=== PATIENT | female | born 1990 | race American Indian/Alaskan Native ===

== ENCOUNTER 2020-01-28 19:29 | Emergency (ER) | payer SELFPAY ==
[2020-01-28 20:44] VITALS: BP 135/90
[2020-01-28] MEDS ORDERED: ASPIRIN 325 MG TAB PO ONE (20:46)
[2020-01-28 21:09] LABS: Basophils % (Auto) 0.6 % (0.0-1.8); Eosinophils # (Auto) 0.1 K/mm3 (0.0-0.4); Eosinophils % (Auto) 1.9 % (0.0-4.3); Hematocrit 43.6 % (30.3-42.9); Hemoglobin 14.4 gm/dl (10.1-14.3); Lymphocytes # (Auto) 2.2 K/mm3 (1.2-5.4); Lymphocytes % (Auto) 33.8 % (13.4-35.0); Mean Corpuscular HGB Conc 33 % (30-34); Mean Corpuscular Volume 82 fl (79-97); Monocytes # (Auto) 0.4 K/mm3 (0.0-0.8); Monocytes % (Auto) 6.4 % (0.0-7.3); Platelet Count 297 K/mm3 (140-440); Red Blood Count 5.32 M/mm3 (3.65-5.03); Red Cell Distribution Width 15.5 % (13.2-15.2)
[2020-01-28 21:30] LABS: BUN/Creatinine Ratio 20; Blood Urea Nitrogen 16 mg/dL (7-17); Calcium 10.2 mg/dL (8.4-10.2); Hemolysis Index 11
[2020-01-28 21:46] LABS: Bilirubin,Urine NEG (Negative); Blood,Urine NEG (Negative); Color,Urine Yellow (Yellow); Protein,Urine <15 mg/dL mg/dL (Negative); Urobilinogen,Urine < 2.0 mg/dL (<2.0)
--- NOTE | 2020-01-28 21:48 | Emergency Department Report ---
ED Chest Pain HPI - General Chief Complaint: Chest Pain Stated Complaint: CHEST PAIN/STOMACH PAIN/NAUSEA Time Seen by Provider: 01/28/20 21:25 Source: patient Mode of arrival: Ambulatory Limitations: No Limitations - History of Present Illness Initial Comments: This is a 29-year-old female who presents to the emergency department with 2 complaints. First, patient says that she has been having some midsternal to right-sided chest pain intermittently over the past 2 to 3 days. No known aggravating or alleviating factors. She denies any shortness of breath, back pain, nausea, vomiting or diaphoresis. Secondly, the patient complains of some lower abdominal and/or pelvic pain that occurs after intercourse and last for a few hours. When it occurs it is very intense. However the patient denies any current chest, abdominal or pelvic pains at this time. She has not taken anything for symptoms prior to presentation. She is a tobacco smoker. She does not have a primary care physician or DIRECTOR GIFT. No recent travel or sick contacts at home. She has a past medical history of pseudotumor cerebri. - Related Data Previous Rx's Medication Instructions Recorded Last Taken Type metroNIDAZOLE [Flagyl] 500 mg PO Q12HR #14 tab 01/28/20 Unknown Rx Allergies Allergy/AdvReac Type Severity Reaction Status Date / Time No Known Allergies Allergy Unverified 01/28/20 20:45 Heart Score - HEART Score History: Slightly suspicious EKG: Normal Age: < 45 Risk factors: 1-2 risk factors Troponin: < normal limit HEART Score: 1 - Critical Actions Critical Actions: 0-3 pts:0.9-1.7%risk of adverse cardiac event.Candidate for discharge ED Review of Systems ROS: Stated complaint: CHEST PAIN/STOMACH PAIN/NAUSEA Other details as noted in HPI Comment: All other systems reviewed and negative Constitutional: denies: chills, fever Eyes: denies: eye pain, vision change ENT: denies: ear pain, throat pain Respiratory: denies: cough, shortness of breath Cardiovascular: chest pain. denies: palpitations Gastrointestinal: abdominal pain. denies: vomiting Genitourinary: discharge. denies: dysuria Musculoskeletal: denies: back pain, arthralgia Skin: denies: rash, lesions Neurological: denies: headache, weakness ED Past Medical Hx - Past Medical History Previous Medical History?: Yes Additional medical history: Psedotumor Cerebii - Surgical History Past Surgical History?: Yes Hx Appendectomy: Yes Additional Surgical History: Hernia Repair - Social History Smoking Status: Current Every Day Smoker Substance Use Type: None - Medications Home Medications: Home Medications Medication Instructions Recorded Confirmed Last Taken Type metroNIDAZOLE [Flagyl] 500 mg PO Q12HR #14 tab 01/28/20 Unknown Rx ED Physical Exam - General Limitations: No Limitations - Other Other exam information: GENERAL: The patient is well-developed well-nourished. HENT: Normocephalic. Atraumatic. Patient has moist mucous membranes. EYES: Extraocular motions are intact. NECK: Supple. Trachea is midline. CHEST/LUNGS: Clear to auscultation. There is no respiratory distress noted. HEART/CARDIOVASCULAR: Regular. There is no tachycardia. There is no murmur. ABDOMEN: Abdomen is soft, nontender. Patient has normal bowel sounds. There is no abdominal distention. SKIN: Skin is warm and dry. NEURO: The patient is awake, alert, and oriented. The patient is cooperative. The patient has no focal neurologic deficits. Normal speech. MUSCULOSKELETAL: There is no tenderness or deformity. PELVIC: No vaginal or labial lesions seen. There is some thin white discharge in the vaginal vault. There is also some thick white yeast appearing discharge. ED Course Vital Signs 01/28/20 01/28/20 20:41 23:15 Temperature 98.5 F Pulse Rate 87 Respiratory 20 16 Rate Blood Pressure 135/90 O2 Sat by Pulse 97 98 Oximetry - Reevaluation(s) Reevaluation #1: 01/28/20 22:22 Pelvic exam done with charge nurse Chelsie at bedside to assist and health and safety director. DAVID score - David Score Age > 65: (0) No Aspirin use within the Past 7 Days: (0) No 3 or more CAD Risk Factors: (0) No 2 or more Angina events in past 24 hrs: (1) Yes Known CAD with more than 50% Stenosis: (0) No Elevated Cardiac Markers: (0) No ST Deviation Greater than 0.5mm: (0) No DAVID Score: 1 ED Medical Decision Making - Lab Data Result diagrams: 01/28/20 20:52 01/28/20 20:52 - EKG Data -: EKG Interpreted by Ia EKG shows normal: sinus rhythm, axis, intervals, QRS complexes, ST-T waves Rate: normal - EKG Data When compared to previous EKG there are: previous EKG unavailable Interpretation: normal EKG - Radiology Data Radiology results: image reviewed interpreted by me: Chest x-ray does not show any acute process. There are no pleural effusions, obvious pneumonia and there is no pneumothorax. No significant cardiomegaly. - Medical Decision Making Regarding the patient's chest pain: An EKG was done that is normal without ST elevation MT, ischemia or dysrhythmia. Chest x-ray does not show any pneumonia, pleural effusions, pneumothorax, or any other acute process. Labs have been unremarkable including CBC, metabolic panel and a negative troponin. Patient does not have any current chest pain. She is low on the heart and DAVID scores. She is low on the Wells score criteria and negative for the pulmonary embolism rule out criteria. The patient's contact information has been sent over to [facility], and someone from their office should be contacting her shortly for close outpatient follow-up as per our hospitals low risk chest pain protocol. Regarding the patient's abdominal and pelvic pain: The patient is also currently asymptomatic from the abdominal and pelvic pains. She mostly says that the pelvic pain occurs during sexual intercourse. Urinalysis does not show any urinary tract infection and the patient is not . Pelvic examination was done and the resulting wet prep was positive for bacterial vaginosis. She also appeared to have some yeastlike discharge and was given a dose of Diflucan here. The patient will go home on Flagyl. She has been given outpatient referrals for primary care and DIRECTOR GIFT. She will return to the emergency department with any worsening of her symptoms or with any acute distress. Critical Care Time: No Critical care attestation.: If time is entered above; I have spent that time in minutes in the direct care of this critically ill patient, excluding procedure time. ED Disposition Clinical Impression: Bacterial vaginosis, Intermittent chest pain, Dyspareunia Disposition: TO HOME OR SELFCARE Is pt being admited?: No Condition: Stable Instructions: Chest Pain (ED), Bacterial Vaginosis (ED) Additional Instructions: Please follow-up with a primary care physician and DIRECTOR GIFT in the next few days. I am giving you multiple referrals for both primary care and DIRECTOR GIFT. Take the medications as prescribed. The medication prescribed for bacterial vaginosis, Flagyl/metronidazole, has a very strong and bad reaction if mixed with alcohol of any quantity. Do not drink any alcohol for up to 2 days after finishing this medication. I have sent your contact information to the [facility], and someone from their office should be contacting you shortly for close outpatient follow-up. Return to the emergency department with any worsening of your symptoms, new or concerning symptoms not addressed during this current emergency department visit, or with any acute distress. Prescriptions: metroNIDAZOLE [Flagyl] 500 mg PO Q12HR #14 tab Referrals: PRIMARY CAREMD [Primary Care Provider] - 3-5 Days FLAKITO REYNA MD [Staff Physician] - 3-5 Days VANIA COVARRUBIAS MD [Staff Physician] - 3-5 Days [facility] [Provider Group] - 3-5 Days [facility] [Provider Group] - 3-5 Days [facility] [Provider Group] - 3-5 Days Forms: STI Treatment and Prevention, Work/School Release Form(ED) Time of Disposition: 22:52
--- NOTE | 2020-01-28 21:56 | XRay Report ---
CHEST 2 VIEWS INDICATION: Chest Pain. COMPARISON: None FINDINGS: Support devices: None. Heart: Within normal limits. Lungs: No acute air space or interstitial disease. Pleura: No significant pleural effusion. No pneumothorax. Additional findings: None. IMPRESSION: 1. No acute findings. Signer Name: Jef Garcia MD Signed: 01/28/2020 9:51 PM Workstation Name: [id number]
[2020-01-28] MEDS ORDERED: FLUCONAZOLE 200 MG TAB PO ONE (22:20)
[2020-01-28 22:34] LABS: Alanine Aminotransferase 10 units/L (7-56)
[2020-01-28 22:36] LABS: Bilirubin,Direct < 0.2 mg/dL (0-0.2)
== END 2020-01-28 23:30 | disposition home or self-care (01) ==
LOC: ED 19:29
DX: N76.0 Acute vaginitis (principal); B96.89 Other specified bacterial agents as the cause of diseases classified elsewhere; R07.89 Other chest pain; N94.10 Unspecified dyspareunia; F17.200 Nicotine dependence, unspecified, uncomplicated; Z79.899 Other long term (current) drug therapy; Z90.49 Acquired absence of other specified parts of digestive tract; Z98.890 Other specified postprocedural states
CPT/HCPCS: 36415; 71046; 80048; 80076; 81001; 84484; 84703; 85025; 87210; 87591; 93005

== ENCOUNTER 2020-03-19 22:15 | Emergency (ER) | payer SELFPAY | END 2020-03-20 01:00 | disposition left against medical advice (07) | LOC: ED 22:15 | DX: R10.9 Unspecified abdominal pain (principal); M54.9 Dorsalgia, unspecified; Z53.21 Procedure and treatment not carried out due to patient leaving prior to being seen by health care provider ==

== ENCOUNTER 2020-07-29 21:07 | Outpatient (CLI) | payer MEDICAID ==
[2020-07-29 21:49] VITALS: BP 111/61
[2020-07-29] MEDS ORDERED: LACTATED RINGERS 500 ML IV ONE (23:11)
--- NOTE | 2020-07-29 23:27 | Ultrasound Report ---
Limited OB Ultrasound HISTORY: CERVICAL LENGTH AND REFUGIO, PLACETA. TECHNIQUE: Grayscale and color imaging performed. COMPARISON: None FINDINGS: Single viable intrauterine gestation with cephalic presentation. Heart rate is 159 bpm. Ricardo centa is posterior with no abruption identified. REFUGIO is 9.4 cm. Cervix measures 3.4 cm. IMPRESSION: Single viable intrauterine gestation as above. Signer Name: Lee Brooks MD Signed: 07/29/2020 11:23 PM Workstation Name: [id number]
== END 2020-07-29 23:23 | disposition home or self-care (01) ==
LOC: TRG 21:07 → APU 21:09 → TRG 23:23
PROVIDERS: ATTEND Obstetrics & Gynecology
DX: Z34.92 Encounter for supervision of normal pregnancy, unspecified, second trimester (principal); Z3A.24 24 weeks gestation of pregnancy
CPT/HCPCS: 59025; 76815

== ENCOUNTER 2020-08-07 09:27 | Inpatient (IN) | payer MEDICAID ==
[2020-08-07] MEDS ORDERED: LACTATED RINGERS 1,000 ML IV ONE (11:10)
[2020-08-07] MEDS ORDERED: DIPHENOXYLATE/ATROPINE TAB PO ONE (11:12)
--- NOTE | 2020-08-07 12:34 | History and Physical Report ---
History of Present Illness Date of examination: 08/07/20 Chief complaint: abdominal pain History of present illness: EDC Confirmation: 11/12/2020 Past History : 3 Term Births: 0 Premature Births: 2 Living Children: 1 Para: 2 Mult. Births: 0 Prev : 0 Prev. attempt? 0 Aborta: 0 Elect. Ab: 0 Spont. 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 of genital herpes: no Partner hx. of genital herpes: no Rash, Viral, or Febrile illness since last LMP? no Varicella/Chicken Pox Status: Previous Disease Genetic History Congenital Heart Defect: Mom: no Dad: no Oziel Disease: Mom: no Dad: no Thalassemia Mom: no Dad: no Neural Tube Defect Mom: no Dad: no Down's Syndrome Mom: no Dad: no David-Sachs Mom: no Dad: no Sickle Cell Disease/Trait Mom: yes Dad: no Hemophilia Mom: no Dad: no Muscular Dystrophy Mom: no Dad: no Cystic Fibrosis Mom: no Dad: no [place] Chorea Mom: no Dad: no Mental Retardation Mom: no Dad: no Fragile X Mom: no Dad: no Other Genetic/Chromosomal Disorder Mom: no Dad: no Child w/other defect Mom: no Dad: no Enviromental Exposures Xray Exposure: no Medication, drug, or alcohol use since LMP: no Chemical/Other Exposure: no Exposure to Cat Liter: no Hx of Parvovirus (Fifth Disease): no Occupational Exposure to Children: none Current Allergies: No known allergies Past History Past Medical History: other (see HPI) Past Surgical History: other (see HPI) 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) Family/Genetic History: other (see HPI) Social history: no significant social history - Obstetrical History Expected Date of Delivery: 11/12/20 Actual Gestation: 26 Week(s) 1 Day(s) : 3 Para: 2 Hx # Term Pregnancies: 0 Number of Pregnancies: 2 Spontaneous Abortions: 0 Induced : 0 Number of Living Children: 1 Medications and Allergies Allergies Allergy/AdvReac Type Severity Reaction Status Date / Time No Known Allergies Allergy Verified 08/07/20 11:08 Home Medications Medication Instructions Recorded Confirmed Last Taken Type metroNIDAZOLE [Flagyl] 500 mg PO Q12HR #14 tab 01/28/20 Unknown Rx Active Meds: Active Medications Acetaminophen (Acetaminophen 325 Mg Tab) 650 mg PO Q4H PRN PRN Reason: Pain MILD(1-3)/Fever >100.5/SANCHEZ Dexamethasone (Dexamethasone 4 Mg/Ml Vial) 6 mg IM Q12HR GALEN Stop: 08/08/20 22:01 Docusate Sodium (Docusate Sodium 100 Mg Cap) 100 mg PO Q12H PRN PRN Reason: Constipation Guaifenesin (Guaifenesin Dm 200/20 Mg Oral Liqd 10 Ml) 10 ml PO Q6H PRN PRN Reason: Cough Lactated Ringer's (Lactated Ringers) 1,000 mls @ 125 mls/hr IV DIRECT GALEN Magnesium Sulfate (Magnesium Sulfate 40gm/1000ml) 40 gm in 1,000 mls @ 50 mls/hr IV DIRECT GALEN Magnesium Sulfate (Magnesium Sulfate 4gm/100ml) 4 gm in 100 mls @ 300 mls/hr IV ONCE ONE Stop: 08/07/20 12:45 Multivitamins/Iron/Calcium ( Szd22-Uf Fumarate-Folic Acid Vit Tab) 1 each PO QDAY GALEN Sodium Chloride (Sodium Chloride Nasal [place] 44ml) 2 spray NS Q4H PRN PRN Reason: Congestion Review of Systems All systems: negative - Vital Signs Vital signs: Vital Signs Temp Resp 98 F 18 08/07/20 11:29 08/07/20 11:29 Temp Pulse Resp BP Pulse Ox 98 F 92 H 18 115/71 08/07/20 11:29 08/07/20 12:21 08/07/20 11:29 08/07/20 12:21 - Physical Exam Breasts: Positive: normal Cardiovascular: Regular rate Lungs: Positive: Normal air movement Abdomen: Positive: normal appearance, soft Genitourinary (Female): Positive: normal external genitalia, normal perenium Vagina: Positive: normal moisture - Obstetrical FHR: auscultation normal Uterine Contraction Monitor Mode: External Uterine Contraction Pattern: Regular Uterine Tone Measurement Phase: Contraction Uterine Contraction Intensity: Mild Results All other labs normal. Assessment and Plan Pt examined by RN - unable to determine cervix or membranes. u/s martinez shows cephalic presentation with CL 0.7cm and funneling 3.0cms at internal os. Admission orders in EMR. Pt reports weekly 17OHP injections by home health nurse. She has not been compliant with visits in our office only having 3 visits. She had an elevated 1hGTT 08/01/2020 of 164. 3hGTt has not yet been done. Dr. Hood aware of admission. - Patient Problems (1) 26 weeks gestation of Current Visit: Yes Status: Acute (2) labor in second trimester Current Visit: Yes Status: Acute Qualifiers: Fetus number: single or unspecified fetus Plan to address problem: Mag sulfate 2gm/hr after 4gm load steroids for lung maturity Mag level q6hrs NICU consult AMFM consult (3) Abnormal glucose tolerance test (GTT) during , antepartum Onset Date: ~08/01/20 Current Visit: Yes Status: Acute Plan to address problem: elevated 1hGTT, will schedule 3hGTT at later date d/t steroids
[2020-08-07] MEDS ORDERED: SODIUM CHLORIDE NASAL SPRAY 44ML NS PRN (13:00)
[2020-08-07] MEDS ORDERED: guaiFENesin DM 200/20 MG ORAL LIQD 10 ML PO PRN (13:00)
[2020-08-07] MEDS ORDERED: ACETAMINOPHEN 325 MG TAB PO PRN (13:00)
[2020-08-07] MEDS ORDERED: MAGNESIUM SULFATE 4 GM/100 ML BAG IV ONE (13:00)
[2020-08-07] MEDS: LACTATED RINGERS 1,000 ML IV SCH (13:37)
[2020-08-07] MEDS: PRENATAL VIT27-FE FUMARATE-FOLIC ACID VIT TAB PO SCH (13:50)
--- NOTE | 2020-08-07 13:53 | Ultrasound Report ---
ULTRASOUND OBSTETRIC LIMITED ULTRASOUND OB TRANSVAGINAL INDICATION / CLINICAL INFORMATION: labor. TECHNIQUE: Transabdominal ultrasound imaging. COMPARISON: 07/29/2020 FINDINGS: HEART RATE (beats per minute): 133 AMNIOTIC FLUID INDEX (cm) = not measured PRESENTATION: Cephalic. ADDITIONAL FINDINGS: Cervical funneling is noted with separation of the internal os measuring up to 3 .0 cm. Cervical length measures 0.7 cm. IMPRESSION: Viable intrauterine . Cervical funneling as described. Signer Name: Dakota Lopez Jr, MD Signed: 08/07/2020 1:48 PM Workstation Name: [id number]
[2020-08-07] MEDS: MAGNESIUM SULFATE 40GM/1000ML 40 GM/1,000 ML BAG IV SCH (14:04)
[2020-08-07] MEDS: dexAMETHasone 4 MG/ML VIAL IM SCH ×2 (14:18→23:06)
[2020-08-07 14:41] LABS: Basophils % (Auto) 0.3 % (0.0-1.8); Eosinophils # (Auto) 0.1 K/mm3 (0.0-0.4); Eosinophils % (Auto) 1.6 % (0.0-4.3); Hematocrit 32.6 % (30.3-42.9); Lymphocytes # (Auto) 1.5 K/mm3 (1.2-5.4); Lymphocytes % (Auto) 19.3 % (13.4-35.0); Mean Corpuscular HGB Conc 34 % (30-34); Mean Corpuscular Volume 82 fl (79-97); Monocytes # (Auto) 0.5 K/mm3 (0.0-0.8); Platelet Count 202 K/mm3 (140-440); Red Blood Count 3.95 M/mm3 (3.65-5.03); Red Cell Distribution Width 13.1 % (13.2-15.2)
--- NOTE | 2020-08-07 23:36 | Consultation ---
Consult Note - Parent Education I met with parent(s) and discussed the following:: Need for NICU admission, Poss ible need for intubation and surfactant or other resp support, Temperature regulation, Head ultrasounds to evaluate IVH, Eye exams for ROP screening, Possible need for IV fluids/TPN and IV antibiotics, Possible need for umbilical lines, Importance of providing breast milk & encouraged pumping aft delivery, Donor breast milk if baby meets criteria after , Slow feeding advancement and monitoring of tolerance. NG/OG feeds, Need to monitor for jaundice, Data for survival & survival without significant co-morbidities Parent(s) demonstrated understanding of all the information:: Yes Assessment and Plan - Assessment Gestation:: 26.1 Estimated Weight: unavailable Baby's gender: Male Baby's name: Undecided Additional Comment: Ms. Pineda is a 30 yo who presented with abdominal pain/pre-term labor at 26.1 weeks gestation with EDC of 11/12/2020. She has a history of delivery at 27 weeks with first child 11 years ago and last year with demise at 24 weeks. She has a hx of pseudotumor cerebri, her serologies are negative/with immune rubella, GBS is pending. She is currently receiving steriod course and magnesium. Discussed delivery, hospital course at length with Ms. Pineda and SHENG. They both voiced understading and all of their questions were addressed. Encouraged them to have RN call the NICU with any new questions. - Plan Plan: Agree with Mag & steroids Will attend delivery Please call NICU with questions
[2020-08-08] MEDS: LACTATED RINGERS 1,000 ML IV SCH ×2 (03:34→19:36)
--- NOTE | 2020-08-08 07:07 | Consultation ---
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) Family/Genetic History: other (see HPI) - Obstetrical History : 3 Medications and Allergies Allergies Allergy/AdvReac Type Severity Reaction Status Date / Time No Known Allergies Allergy Verified 08/07/20 11:08 Home Medications Medication Instructions Recorded Confirmed Last Taken Type metroNIDAZOLE [Flagyl] 500 mg PO Q12HR #14 tab 01/28/20 08/07/20 Unknown Rx Active Meds: Active Medications Acetaminophen (Acetaminophen 325 Mg Tab) 650 mg PO Q4H PRN PRN Reason: Pain MILD(1-3)/Fever >100.5/SANCHEZ Dexamethasone (Dexamethasone 4 Mg/Ml Vial) 6 mg IM Q12HR GALEN Stop: 08/08/20 22:01 Last Admin: 08/07/20 23:06 Dose: 6 mg Documented by: Docusate Sodium (Docusate Sodium 100 Mg Cap) 100 mg PO Q12H PRN PRN Reason: Constipation Guaifenesin (Guaifenesin Dm 200/20 Mg Oral Liqd 10 Ml) 10 ml PO Q6H PRN PRN Reason: Cough Lactated Ringer's (Lactated Ringers) 1,000 mls @ 125 mls/hr IV DIRECT GALEN Last Admin: 08/08/20 03:34 Dose: 75 mls/hr Documented by: Magnesium Sulfate (Magnesium Sulfate 40gm/1000ml) 40 gm in 1,000 mls @ 50 mls/hr IV DIRECT GALEN Last Admin: 08/07/20 14:04 Dose: 2 gm/hr, 50 mls/hr Documented by: Multivitamins/Iron/Calcium ( [id number]-Mf Fumarate-Folic Acid Vit Tab) 1 each PO QDAY GALEN Last Admin: 08/07/20 13:50 Dose: 1 each Documented by: Sodium Chloride (Sodium Chloride Nasal [place] 44ml) 2 spray NS Q4H PRN PRN Reason: Congestion - Vital Signs Vital signs: Vital Signs Temp Resp 98 F 18 08/07/20 11:29 08/07/20 11:29 Temp Pulse Resp BP Pulse Ox 98.2 F 90 16 81/42 93 08/08/20 03:43 08/08/20 07:06 08/08/20 01:41 08/08/20 07:01 08/08/20 07:06 Results Result Diagrams: 08/07/20 13:39 Abnormal lab results 08/07/20 08/07/20 08/08/20 Range/Units 13:39 18:35 01:02 RDW 13.1 L (13.2-15.2) % Seg Neutrophils % 72.8 H (40.0-70.0) % Magnesium 4.10 H 5.00 H (1.7-2.3) mg/dL All other labs normal. Assessment and Plan AMFM Consult performed Full note to follow
--- NOTE | 2020-08-08 08:25 | Progress Note ---
Assessment and Plan - Patient Problems (1) labor in second trimester Current Visit: Yes Status: Acute Qualifiers: Fetus number: single or unspecified fetus Plan to address problem: Continue Magnesium Sulfate IV until 24hrs post steroid administration, with Mag levels drawn q6h Administer steroids for lung maturation, as ordered continuous monitoring for labor NICU and [facility] consults done POC consulted and Dr. Hickman made aware Subjective - Subjective Date of service: 08/08/20 Principal diagnosis: IUP @26w2d; labor without delivery Patient reports: movement normal, other (pt desires to eat), no new complaints, no loss of fluid, no vaginal bleeding, no contractions Objective - Vital Signs Vital Signs: Vital Signs - 12hr 08/07/20 08/07/20 08/07/20 20:30 20:31 20:35 Temperature Pulse Rate 96 H 97 H 100 H Respiratory Rate Blood Pressure 102/62 O2 Sat by Pulse 96 96 Oximetry 08/07/20 08/07/20 08/07/20 20:36 20:40 20:45 Temperature Pulse Rate 100 H 97 H 93 H Respiratory Rate Blood Pressure O2 Sat by Pulse 94 97 97 Oximetry 08/07/20 08/07/20 08/07/20 20:50 20:55 21:00 Temperature Pulse Rate 99 H 98 H 103 H Respiratory Rate Blood Pressure O2 Sat by Pulse 96 96 96 Oximetry 08/07/20 08/07/20 08/07/20 21:01 21:05 21:10 Temperature Pulse Rate 94 H 96 H 94 H Respiratory Rate Blood Pressure 88/54 O2 Sat by Pulse 94 96 96 Oximetry 08/07/20 08/07/20 08/07/20 21:12 21:15 21:19 Temperature Pulse Rate 93 H 91 H 92 H Respiratory Rate Blood Pressure 86/52 O2 Sat by Pulse 93 96 Oximetry 08/07/20 08/07/20 08/07/20 21:20 21:25 21:30 Temperature Pulse Rate 99 H 98 H 95 H Respiratory Rate Blood Pressure O2 Sat by Pulse 97 96 96 Oximetry 08/07/20 08/07/20 08/07/20 21:31 21:35 21:40 Temperature Pulse Rate 96 H 98 H 97 H Respiratory Rate Blood Pressure 89/50 O2 Sat by Pulse 95 97 Oximetry 04/28/21 04/28/21 04/28/21 21:45 21:46 21:50 Temperature Pulse Rate 100 H 97 H 98 H Respiratory Rate Blood Pressure 107/62 O2 Sat by Pulse 98 98 Oximetry 08/07/20 08/07/20 08/07/20 21:55 22:00 22:01 Temperature Pulse Rate 105 H 91 H 94 H Respiratory Rate Blood Pressure 109/70 O2 Sat by Pulse 98 99 Oximetry 08/07/20 08/07/20 08/07/20 22:05 22:10 22:15 Temperature Pulse Rate 87 94 H 95 H Respiratory Rate Blood Pressure O2 Sat by Pulse 99 99 98 Oximetry 08/07/20 08/07/20 08/07/20 22:20 22:25 22:30 Temperature Pulse Rate 97 H 98 H 95 H Respiratory Rate Blood Pressure 118/75 O2 Sat by Pulse 99 99 97 Oximetry 08/07/20 08/07/20 08/07/20 22:35 22:40 22:45 Temperature Pulse Rate 96 H 98 H 97 H Respiratory Rate Blood Pressure O2 Sat by Pulse 99 99 99 Oximetry 08/07/20 08/07/20 08/07/20 22:50 22:55 23:00 Temperature Pulse Rate 99 H 99 H 88 Respiratory Rate Blood Pressure 105/66 O2 Sat by Pulse 99 99 98 Oximetry 08/07/20 08/07/20 08/07/20 23:05 23:08 23:10 Temperature Pulse Rate 91 H 101 H 90 Respiratory Rate Blood Pressure O2 Sat by Pulse 97 94 98 Oximetry 08/07/20 08/07/20 08/07/20 23:15 23:20 23:25 Temperature Pulse Rate 91 H 104 H 84 Respiratory Rate Blood Pressure O2 Sat by Pulse 99 98 99 Oximetry 08/07/20 08/07/20 08/07/20 23:30 23:35 23:40 Temperature Pulse Rate 92 H 92 H 86 Respiratory Rate Blood Pressure 117/73 O2 Sat by Pulse 99 99 98 Oximetry 08/07/20 08/07/20 08/07/20 23:45 23:50 23:55 Temperature Pulse Rate 86 89 91 H Respiratory Rate Blood Pressure O2 Sat by Pulse 98 98 97 Oximetry 08/08/20 08/08/20 08/08/20 00:00 00:05 00:10 Temperature Pulse Rate 85 95 H 92 H Respiratory Rate Blood Pressure 105/65 O2 Sat by Pulse 98 96 98 Oximetry 08/08/20 08/08/20 08/08/20 00:15 00:20 00:25 Temperature Pulse Rate 98 H 85 85 Respiratory Rate Blood Pressure O2 Sat by Pulse 98 98 97 Oximetry 08/08/20 08/08/20 08/08/20 00:30 00:33 00:35 Temperature Pulse Rate 94 H 88 85 Respiratory Rate Blood Pressure O2 Sat by Pulse 96 92 97 Oximetry 08/08/20 08/08/20 08/08/20 00:40 00:45 00:50 Temperature Pulse Rate 89 88 93 H Respiratory Rate Blood Pressure O2 Sat by Pulse 98 98 99 Oximetry 08/08/20 08/08/20 08/08/20 00:55 01:00 01:01 Temperature Pulse Rate 89 87 91 H Respiratory Rate Blood Pressure 101/66 O2 Sat by Pulse 99 98 Oximetry 08/08/20 08/08/20 08/08/20 01:05 01:10 01:15 Temperature Pulse Rate 89 92 H 88 Respiratory Rate Blood Pressure O2 Sat by Pulse 96 95 95 Oximetry 08/08/20 08/08/20 08/08/20 01:20 01:25 01:28 Temperature Pulse Rate 88 94 H 92 H Respiratory Rate Blood Pressure O2 Sat by Pulse 96 97 94 Oximetry 08/08/20 08/08/20 08/08/20 01:30 01:31 01:34 Temperature Pulse Rate 85 83 97 H Respiratory Rate Blood Pressure 112/69 O2 Sat by Pulse 96 97 Oximetry 08/08/20 08/08/20 08/08/20 01:40 01:41 01:45 Temperature 98.0 F Pulse Rate 94 H 85 Respiratory 16 Rate Blood Pressure O2 Sat by Pulse 95 97 Oximetry 08/08/20 08/08/20 08/08/20 01:50 01:55 02:00 Temperature Pulse Rate 83 91 H 88 Respiratory Rate Blood Pressure O2 Sat by Pulse 97 98 98 Oximetry 08/08/20 08/08/20 08/08/20 02:01 02:05 02:10 Temperature Pulse Rate 83 87 90 Respiratory Rate Blood Pressure 114/69 O2 Sat by Pulse 98 98 Oximetry 08/08/20 08/08/20 08/08/20 02:15 02:20 02:25 Temperature Pulse Rate 86 90 102 H Respiratory Rate Blood Pressure O2 Sat by Pulse 98 98 98 Oximetry 08/08/20 08/08/20 08/08/20 02:30 02:31 02:35 Temperature Pulse Rate 86 87 88 Respiratory Rate Blood Pressure 122/72 O2 Sat by Pulse 97 96 Oximetry 08/08/20 08/08/20 08/08/20 02:40 02:45 02:50 Temperature Pulse Rate 97 H 88 89 Respiratory Rate Blood Pressure O2 Sat by Pulse 96 97 98 Oximetry 08/08/20 08/08/20 08/08/20 02:51 02:55 03:00 Temperature Pulse Rate 95 H 86 86 Respiratory Rate Blood Pressure O2 Sat by Pulse 94 97 97 Oximetry 08/08/20 08/08/20 08/08/20 03:01 03:05 03:10 Temperature Pulse Rate 84 89 99 H Respiratory Rate Blood Pressure 108/64 O2 Sat by Pulse 97 97 Oximetry 08/08/20 08/08/20 08/08/20 03:15 03:20 03:24 Temperature Pulse Rate 96 H 97 H 99 H Respiratory Rate Blood Pressure O2 Sat by Pulse 95 98 94 Oximetry 08/08/20 08/08/20 08/08/20 03:25 03:30 03:31 Temperature Pulse Rate 95 H 99 H 97 H Respiratory Rate Blood Pressure 108/63 O2 Sat by Pulse 95 95 94 Oximetry 08/08/20 08/08/20 08/08/20 03:35 03:40 03:43 Temperature 98.2 F Pulse Rate 97 H 102 H Respiratory Rate Blood Pressure O2 Sat by Pulse 94 96 Oximetry 08/08/20 08/08/20 08/08/20 03:45 03:50 03:55 Temperature Pulse Rate 109 H 89 93 H Respiratory Rate Blood Pressure O2 Sat by Pulse 97 97 96 Oximetry 08/08/20 08/08/20 08/08/20 03:59 04:01 04:05 Temperature Pulse Rate 80 82 97 H Respiratory Rate Blood Pressure 121/70 O2 Sat by Pulse 98 96 Oximetry 08/08/20 08/08/20 08/08/20 04:10 04:15 04:20 Temperature Pulse Rate 85 90 87 Respiratory Rate Blood Pressure O2 Sat by Pulse 96 95 96 Oximetry 08/08/20 08/08/20 08/08/20 04:25 04:30 04:31 Temperature Pulse Rate 85 88 85 Respiratory Rate Blood Pressure 122/72 O2 Sat by Pulse 95 97 Oximetry 08/08/20 08/08/20 08/08/20 04:32 04:35 04:40 Temperature Pulse Rate 104 H 92 H 92 H Respiratory Rate Blood Pressure O2 Sat by Pulse 94 95 95 Oximetry 08/08/20 08/08/20 08/08/20 04:46 04:50 04:51 Temperature Pulse Rate 96 H 88 88 Respiratory Rate Blood Pressure O2 Sat by Pulse 97 94 95 Oximetry 08/08/20 08/08/20 08/08/20 04:55 04:56 05:01 Temperature Pulse Rate 94 H 109 H 90 Respiratory Rate Blood Pressure 121/74 O2 Sat by Pulse 93 95 97 Oximetry 08/08/20 08/08/20 08/08/20 05:06 05:11 05:16 Temperature Pulse Rate 94 H 89 88 Respiratory Rate Blood Pressure O2 Sat by Pulse 99 97 97 Oximetry 08/08/20 08/08/20 08/08/20 05:21 05:26 05:31 Temperature Pulse Rate 89 89 87 Respiratory Rate Blood Pressure 123/67 O2 Sat by Pulse 96 96 95 Oximetry 08/08/20 08/08/20 08/08/20 05:36 05:41 05:46 Temperature Pulse Rate 98 H 88 92 H Respiratory Rate Blood Pressure O2 Sat by Pulse 97 97 97 Oximetry 08/08/20 08/08/20 08/08/20 05:49 05:51 05:56 Temperature Pulse Rate 85 99 H 85 Respiratory Rate Blood Pressure O2 Sat by Pulse 94 96 97 Oximetry 08/08/20 08/08/20 08/08/20 06:01 06:06 06:09 Temperature Pulse Rate 86 99 H 88 Respiratory Rate Blood Pressure 116/66 O2 Sat by Pulse 96 95 94 Oximetry 08/08/20 08/08/20 08/08/20 06:11 06:16 06:21 Temperature Pulse Rate 86 90 89 Respiratory Rate Blood Pressure O2 Sat by Pulse 98 98 97 Oximetry 08/08/20 08/08/20 08/08/20 06:25 06:28 06:31 Temperature Pulse Rate 90 93 H 109 H Respiratory Rate Blood Pressure O2 Sat by Pulse 95 94 98 Oximetry 08/08/20 08/08/20 08/08/20 06:33 06:36 06:40 Temperature Pulse Rate 92 H 95 H 93 H Respiratory Rate Blood Pressure 101/54 O2 Sat by Pulse 94 95 94 Oximetry 08/08/20 08/08/20 08/08/20 06:41 06:46 06:51 Temperature Pulse Rate 91 H 90 93 H Respiratory Rate Blood Pressure O2 Sat by Pulse 95 94 95 Oximetry 08/08/20 08/08/20 08/08/20 06:53 06:56 06:59 Temperature Pulse Rate 90 90 90 Respiratory Rate Blood Pressure O2 Sat by Pulse 93 94 94 Oximetry 08/08/20 08/08/20 08/08/20 07:01 07:06 07:11 Temperature Pulse Rate 89 90 90 Respiratory Rate Blood Pressure 81/42 O2 Sat by Pulse 93 93 93 Oximetry 08/08/20 08/08/20 08/08/20 07:16 07:19 07:21 Temperature Pulse Rate 91 H 101 H 93 H Respiratory Rate Blood Pressure O2 Sat by Pulse 93 93 98 Oximetry 08/08/20 08/08/20 08/08/20 07:26 07:31 07:32 Temperature Pulse Rate 89 90 91 H Respiratory Rate Blood Pressure 100/55 O2 Sat by Pulse 94 95 94 Oximetry 08/08/20 08/08/20 08/08/20 07:36 07:41 07:46 Temperature Pulse Rate 98 H 101 H 92 H Respiratory Rate Blood Pressure O2 Sat by Pulse 97 97 98 Oximetry 08/08/20 08/08/20 08/08/20 07:51 07:56 07:58 Temperature Pulse Rate 92 H 91 H 100 H Respiratory Rate Blood Pressure O2 Sat by Pulse 96 97 84 Oximetry 08/08/20 08/08/20 08/08/20 08:01 08:05 08:06 Temperature Pulse Rate 90 93 H 90 Respiratory Rate Blood Pressure 115/66 117/65 O2 Sat by Pulse 98 96 Oximetry 08/08/20 08/08/20 08/08/20 08:11 08:16 08:17 Temperature Pulse Rate 96 H 92 H 99 H Respiratory Rate Blood Pressure O2 Sat by Pulse 100 96 93 Oximetry 08/08/20 08:21 Temperature Pulse Rate 93 H Respiratory Rate Blood Pressure O2 Sat by Pulse 96 Oximetry - Exam Cardiovascular: Regular rate Lungs: Normal air movement Abdomen: Present: soft Uterus: Present: normal FHR: auscultation normal, category 1 Uterine Contraction Monitor Mode: External Uterine Contraction Pattern: Absent Uterine Tone Measurement Phase: Resting Extremities: normal - Labs Labs: Abnormal Labs 08/07/20 08/07/20 08/08/20 13:39 18:35 01:02 RDW 13.1 L Seg Neutrophils % 72.8 H Magnesium 4.10 H 5.00 H Laboratory Results - last 24 hr 08/07/20 08/07/20 08/07/20 11:14 13:39 13:39 WBC 7.6 RBC 3.95 Hgb 11.0 Hct 32.6 MCV 82 MCH 28 MCHC 34 RDW 13.1 L Plt Count 202 Lymph % (Auto) 19.3 [place] % (Auto) 6.0 Eos % (Auto) 1.6 Baso % (Auto) 0.3 Lymph # (Auto) 1.5 [place] # (Auto) 0.5 Eos # (Auto) 0.1 Baso # (Auto) 0.0 Seg Neutrophils % 72.8 H Seg Neutrophils # 5.5 Magnesium Syphilis IgG Antibody Fibronectin Positive Blood Type B POSITIVE Antibody Screen Negative 08/07/20 08/07/20 08/08/20 13:52 18:35 01:02 WBC RBC Hgb Hct MCV MCH MCHC RDW Plt Count Lymph % (Auto) [place] % (Auto) Eos % (Auto) Baso % (Auto) Lymph # (Auto) [place] # (Auto) Eos # (Auto) Baso # (Auto) Seg Neutrophils % Seg Neutrophils # Magnesium 4.10 H 5.00 H Syphilis IgG Antibody Nonreactive Fibronectin Blood Type Antibody Screen
[2020-08-08] MEDS: dexAMETHasone 4 MG/ML VIAL IM SCH ×2 (10:18→22:43)
[2020-08-08] MEDS: PRENATAL VIT27-FE FUMARATE-FOLIC ACID VIT TAB PO SCH (10:19)
[2020-08-08] MEDS: MAGNESIUM SULFATE 40GM/1000ML 40 GM/1,000 ML BAG IV SCH (11:03)
[2020-08-08 20:23] LABS: Albumin 3.8 g/dL (3.9-5); Blood Urea Nitrogen 3 mg/dL (7-17); Calcium 7.2 mg/dL (8.4-10.2); Hemolysis Index 11
[2020-08-08 20:24] LABS: Alanine Aminotransferase < 5 units/L (7-56); BUN/Creatinine Ratio 6
[2020-08-08] MEDS ORDERED: diphenhydrAMINE 25 MG CAP PO ONE (23:55)
[2020-08-09] MEDS: LACTATED RINGERS 1,000 ML IV SCH ×2 (06:44→20:10)
[2020-08-09] MEDS: MAGNESIUM SULFATE 40GM/1000ML 40 GM/1,000 ML BAG IV SCH (06:44)
--- NOTE | 2020-08-09 08:23 | Progress Note ---
<SEAN BELTRAN - Last Filed: 08/09/20 12:27> Assessment and Plan Patient resting, no complaints this morning. pt states she had some ctx last night but they resolved. no s/s leaking. no vag bleeding, patient reports + FM. I&o adequate. Steroid complete as of 2300 last night. Mag to be d/c'd tonight. - Patient Problems (1) 26 weeks gestation of Current Visit: Yes Status: Acute Plan to address problem: Growth scan ordered repeat CL @ 28wks to determine candidacy for outpatient management. (2) labor in second trimester Current Visit: Yes Status: Acute Qualifiers: Fetus number: single or unspecified fetus Plan to address problem: Mag sulfate 2gm x 24hrs after completion of steroids. steroids for lung maturity Mag level q6hrs NICU consult AMFM consult (3) Abnormal glucose tolerance test (GTT) during , antepartum Onset Date: ~08/01/20 Current Visit: Yes Status: Acute Plan to address problem: elevated 1hGTT, will schedule 3hGTT at later date d/t steroids (4) Pseudotumor cerebri Current Visit: Yes Status: Acute Subjective - Subjective Date of service: 08/09/20 Principal diagnosis: IUP @26w3d; labor Interval history: EDC Confirmation: 11/12/2020 Past History : 3 Term Births: 0 Premature Births: 2 Living Children: 1 Para: 2 Mult. Births: 0 Prev : 0 Prev. attempt? 0 Aborta: 0 Elect. Ab: 0 Spont. 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 of genital herpes: no Partner hx. of genital herpes: no Rash, Viral, or Febrile illness since last LMP? no Varicella/Chicken Pox Status: Previous Disease Genetic History Congenital Heart Defect: Mom: no Dad: no Oziel Disease: Mom: no Dad: no Thalassemia Mom: no Dad: no Neural Tube Defect Mom: no Dad: no Down's Syndrome Mom: no Dad: no David-Sachs Mom: no Dad: no Sickle Cell Disease/Trait Mom: yes Dad: no Hemophilia Mom: no Dad: no Muscular Dystrophy Mom: no Dad: no Cystic Fibrosis Mom: no Dad: no Rogers Chorea Mom: no Dad: no Mental Retardation Mom: no Dad: no Fragile X Mom: no Dad: no Other Genetic/Chromosomal Disorder Mom: no Dad: no Child w/other defect Mom: no Dad: no Enviromental Exposures Xray Exposure: no Medication, drug, or alcohol use since LMP: no Chemical/Other Exposure: no Exposure to Cat Liter: no Hx of Parvovirus (Fifth Disease): no Occupational Exposure to Children: none Current Allergies: No known allergies Patient reports: movement normal, no new complaints, no loss of fluid, no vaginal bleeding, no contractions Objective - Vital Signs Vital Signs: Vital Signs - 12hr 08/08/20 08/08/20 08/08/20 20:27 20:31 20:32 Temperature Pulse Rate 94 H 88 92 H Respiratory Rate Blood Pressure 96/52 Blood Pressure [Left] O2 Sat by Pulse 99 98 Oximetry 08/08/20 08/08/20 08/08/20 20:37 20:42 20:47 Temperature Pulse Rate 86 90 89 Respiratory Rate Blood Pressure Blood Pressure [Left] O2 Sat by Pulse 99 98 99 Oximetry 08/08/20 08/08/20 08/08/20 20:50 20:52 20:54 Temperature 97.8 F Pulse Rate 90 86 Respiratory 16 Rate Blood Pressure 92/54 Blood Pressure [Left] O2 Sat by Pulse 99 Oximetry 08/08/20 08/08/20 08/08/20 20:57 21:01 21:02 Temperature Pulse Rate 88 108 H 100 H Respiratory Rate Blood Pressure 145/70 Blood Pressure [Left] O2 Sat by Pulse 98 97 Oximetry 08/08/20 08/08/20 08/08/20 21:07 21:12 21:17 Temperature Pulse Rate 92 H 91 H 88 Respiratory Rate Blood Pressure Blood Pressure [Left] O2 Sat by Pulse 98 98 99 Oximetry 08/08/20 08/08/20 08/08/20 21:22 21:27 21:32 Temperature Pulse Rate 87 82 81 Respiratory Rate Blood Pressure 111/64 Blood Pressure [Left] O2 Sat by Pulse 100 99 97 Oximetry 08/08/20 08/08/20 08/08/20 21:37 21:42 21:47 Temperature Pulse Rate 86 87 88 Respiratory Rate Blood Pressure Blood Pressure [Left] O2 Sat by Pulse 97 98 96 Oximetry 08/08/20 08/08/20 08/08/20 21:49 21:52 21:56 Temperature Pulse Rate 96 H 92 H 92 H Respiratory Rate Blood Pressure Blood Pressure [Left] O2 Sat by Pulse 94 95 93 Oximetry 08/08/20 08/08/20 08/08/20 21:57 22:00 22:02 Temperature Pulse Rate 98 H 93 H 114 H Respiratory Rate Blood Pressure 106/56 Blood Pressure [Left] O2 Sat by Pulse 95 97 Oximetry 08/08/20 08/08/20 08/08/20 22:07 22:12 22:17 Temperature Pulse Rate 103 H 103 H 87 Respiratory Rate Blood Pressure Blood Pressure [Left] O2 Sat by Pulse 98 97 98 Oximetry 08/08/20 08/08/20 08/08/20 22:22 22:27 22:30 Temperature Pulse Rate 90 93 H 84 Respiratory Rate Blood Pressure 106/62 Blood Pressure [Left] O2 Sat by Pulse 98 98 Oximetry 08/08/20 08/08/20 08/08/20 22:32 22:37 22:42 Temperature Pulse Rate 94 H 88 94 H Respiratory Rate Blood Pressure Blood Pressure [Left] O2 Sat by Pulse 96 98 98 Oximetry 08/08/20 08/08/20 08/08/20 22:47 22:52 22:57 Temperature Pulse Rate 87 102 H 90 Respiratory Rate Blood Pressure Blood Pressure [Left] O2 Sat by Pulse 97 94 98 Oximetry 08/08/20 08/08/20 08/08/20 23:01 23:02 23:07 Temperature Pulse Rate 89 87 92 H Respiratory Rate Blood Pressure 90/54 Blood Pressure [Left] O2 Sat by Pulse 97 99 Oximetry 08/08/20 08/08/20 08/08/20 23:12 23:17 23:22 Temperature Pulse Rate 87 95 H 95 H Respiratory Rate Blood Pressure Blood Pressure [Left] O2 Sat by Pulse 99 98 97 Oximetry 08/08/20 08/08/20 08/08/20 23:27 23:31 23:32 Temperature Pulse Rate 97 H 93 H 95 H Respiratory Rate Blood Pressure 110/56 Blood Pressure [Left] O2 Sat by Pulse 97 98 Oximetry 08/08/20 08/08/20 08/08/20 23:37 23:42 23:47 Temperature Pulse Rate 87 91 H 87 Respiratory Rate Blood Pressure Blood Pressure [Left] O2 Sat by Pulse 98 98 98 Oximetry 08/08/20 08/08/20 08/09/20 23:52 23:57 00:00 Temperature 97.8 F Pulse Rate 98 H 87 Respiratory 16 Rate Blood Pressure Blood Pressure [Left] O2 Sat by Pulse 97 97 Oximetry 08/09/20 08/09/20 08/09/20 00:01 00:02 00:07 Temperature Pulse Rate 95 H 86 93 H Respiratory Rate Blood Pressure 110/68 Blood Pressure [Left] O2 Sat by Pulse 98 99 Oximetry 08/09/20 08/09/20 08/09/20 00:12 00:17 00:22 Temperature Pulse Rate 88 89 90 Respiratory Rate Blood Pressure Blood Pressure [Left] O2 Sat by Pulse 100 98 98 Oximetry 08/09/20 08/09/20 08/09/20 00:27 00:30 00:32 Temperature Pulse Rate 93 H 85 90 Respiratory Rate Blood Pressure 115/59 Blood Pressure [Left] O2 Sat by Pulse 97 99 Oximetry 08/09/20 08/09/20 08/09/20 00:37 00:42 00:47 Temperature Pulse Rate 91 H 87 92 H Respiratory Rate Blood Pressure Blood Pressure [Left] O2 Sat by Pulse 98 98 98 Oximetry 08/09/20 08/09/20 08/09/20 00:52 00:57 01:01 Temperature Pulse Rate 88 94 H 88 Respiratory Rate Blood Pressure 98/50 Blood Pressure [Left] O2 Sat by Pulse 98 98 Oximetry 08/09/20 08/09/20 08/09/20 01:02 01:07 01:12 Temperature Pulse Rate 89 92 H 81 Respiratory Rate Blood Pressure Blood Pressure [Left] O2 Sat by Pulse 98 99 98 Oximetry 08/09/20 08/09/20 08/09/20 01:14 01:17 01:22 Temperature Pulse Rate 84 90 93 H Respiratory Rate Blood Pressure Blood Pressure [Left] O2 Sat by Pulse 89 99 99 Oximetry 08/09/20 08/09/20 08/09/20 01:27 01:31 01:32 Temperature Pulse Rate 84 85 82 Respiratory Rate Blood Pressure 98/55 Blood Pressure [Left] O2 Sat by Pulse 98 98 Oximetry 08/09/20 08/09/20 08/09/20 01:37 01:42 01:47 Temperature Pulse Rate 90 85 87 Respiratory Rate Blood Pressure Blood Pressure [Left] O2 Sat by Pulse 99 98 97 Oximetry 08/09/20 08/09/20 08/09/20 01:52 01:57 02:02 Temperature Pulse Rate 92 H 85 83 Respiratory Rate Blood Pressure 107/61 Blood Pressure [Left] O2 Sat by Pulse 97 97 99 Oximetry 08/09/20 08/09/20 08/09/20 02:07 02:12 02:17 Temperature Pulse Rate 84 83 83 Respiratory Rate Blood Pressure Blood Pressure [Left] O2 Sat by Pulse 97 99 99 Oximetry 08/09/20 08/09/20 08/09/20 02:22 02:27 02:30 Temperature Pulse Rate 86 86 85 Respiratory Rate Blood Pressure 112/57 Blood Pressure [Left] O2 Sat by Pulse 98 99 Oximetry 08/09/20 08/09/20 08/09/20 02:32 02:37 02:42 Temperature Pulse Rate 92 H 88 86 Respiratory Rate Blood Pressure Blood Pressure [Left] O2 Sat by Pulse 99 99 98 Oximetry 08/09/20 08/09/20 08/09/20 02:47 02:52 02:57 Temperature Pulse Rate 86 87 86 Respiratory Rate Blood Pressure Blood Pressure [Left] O2 Sat by Pulse 97 97 97 Oximetry 08/09/20 08/09/20 08/09/20 03:01 03:02 03:07 Temperature Pulse Rate 86 93 H 93 H Respiratory Rate Blood Pressure 121/71 Blood Pressure [Left] O2 Sat by Pulse 99 98 Oximetry 08/09/20 08/09/20 08/09/20 03:12 03:17 03:22 Temperature Pulse Rate 94 H 96 H 99 H Respiratory Rate Blood Pressure Blood Pressure [Left] O2 Sat by Pulse 94 97 94 Oximetry 08/09/20 08/09/20 08/09/20 03:27 03:29 03:31 Temperature Pulse Rate 95 H 100 H 93 H Respiratory Rate Blood Pressure 111/57 Blood Pressure [Left] O2 Sat by Pulse 96 93 Oximetry 08/09/20 08/09/20 08/09/20 03:32 03:37 03:42 Temperature Pulse Rate 97 H 106 H 96 H Respiratory Rate Blood Pressure Blood Pressure [Left] O2 Sat by Pulse 95 96 95 Oximetry 08/09/20 08/09/20 08/09/20 03:43 03:47 03:52 Temperature Pulse Rate 95 H 95 H 95 H Respiratory Rate Blood Pressure Blood Pressure [Left] O2 Sat by Pulse 94 95 95 Oximetry 08/09/20 08/09/20 08/09/20 03:57 04:01 04:02 Temperature Pulse Rate 92 H 93 H 102 H Respiratory Rate Blood Pressure 111/55 Blood Pressure [Left] O2 Sat by Pulse 96 93 Oximetry 08/09/20 08/09/20 08/09/20 04:07 04:09 04:12 Temperature Pulse Rate 102 H 100 H 101 H Respiratory Rate Blood Pressure Blood Pressure [Left] O2 Sat by Pulse 96 94 95 Oximetry 08/09/20 08/09/20 08/09/20 04:15 04:17 04:22 Temperature Pulse Rate 97 H 101 H 97 H Respiratory Rate Blood Pressure Blood Pressure [Left] O2 Sat by Pulse 94 95 97 Oximetry 08/09/20 08/09/20 08/09/20 04:27 04:31 04:32 Temperature Pulse Rate 96 H 100 H 99 H Respiratory Rate Blood Pressure 108/55 Blood Pressure [Left] O2 Sat by Pulse 97 95 Oximetry 08/09/20 08/09/20 08/09/20 04:33 04:37 04:38 Temperature Pulse Rate 96 H 92 H 94 H Respiratory Rate Blood Pressure Blood Pressure [Left] O2 Sat by Pulse 94 94 94 Oximetry 08/09/20 08/09/20 08/09/20 04:42 04:47 04:52 Temperature Pulse Rate 95 H 97 H 103 H Respiratory Rate Blood Pressure Blood Pressure [Left] O2 Sat by Pulse 95 95 95 Oximetry 08/09/20 08/09/20 08/09/20 04:54 04:57 05:02 Temperature Pulse Rate 94 H 95 H 111 H Respiratory Rate Blood Pressure Blood Pressure [Left] O2 Sat by Pulse 94 94 98 Oximetry 08/09/20 08/09/20 08/09/20 05:03 05:06 05:07 Temperature 97.8 F Pulse Rate 108 H 95 H Respiratory 18 Rate Blood Pressure 107/55 Blood Pressure [Left] O2 Sat by Pulse 97 Oximetry 08/09/20 08/09/20 08/09/20 05:12 05:16 05:17 Temperature Pulse Rate 87 85 88 Respiratory Rate Blood Pressure Blood Pressure [Left] O2 Sat by Pulse 96 94 96 Oximetry 08/09/20 08/09/20 08/09/20 05:22 05:27 05:31 Temperature Pulse Rate 86 88 87 Respiratory Rate Blood Pressure 103/51 Blood Pressure [Left] O2 Sat by Pulse 96 95 Oximetry 08/09/20 08/09/20 08/09/20 05:32 05:37 05:42 Temperature Pulse Rate 87 103 H 91 H Respiratory Rate Blood Pressure Blood Pressure [Left] O2 Sat by Pulse 96 99 94 Oximetry 08/09/20 08/09/20 08/09/20 05:47 05:48 05:52 Temperature Pulse Rate 84 87 87 Respiratory Rate Blood Pressure Blood Pressure [Left] O2 Sat by Pulse 96 94 96 Oximetry 08/09/20 08/09/20 08/09/20 05:57 05:58 06:01 Temperature Pulse Rate 89 91 H 85 Respiratory Rate Blood Pressure 97/51 Blood Pressure [Left] O2 Sat by Pulse 95 94 Oximetry 08/09/20 08/09/20 08/09/20 06:02 06:04 06:07 Temperature Pulse Rate 88 101 H 85 Respiratory Rate Blood Pressure Blood Pressure [Left] O2 Sat by Pulse 97 94 96 Oximetry 08/09/20 08/09/20 08/09/20 06:11 06:12 06:17 Temperature Pulse Rate 82 85 108 H Respiratory Rate Blood Pressure Blood Pressure [Left] O2 Sat by Pulse 94 96 98 Oximetry 08/09/20 08/09/20 08/09/20 06:22 06:27 06:31 Temperature Pulse Rate 100 H 98 H 88 Respiratory Rate Blood Pressure 118/58 Blood Pressure [Left] O2 Sat by Pulse 97 97 Oximetry 08/09/20 08/09/20 08/09/20 06:32 06:37 06:42 Temperature Pulse Rate 95 H 93 H 98 H Respiratory Rate Blood Pressure Blood Pressure [Left] O2 Sat by Pulse 98 97 96 Oximetry 08/09/20 08/09/20 08/09/20 06:47 06:52 06:57 Temperature Pulse Rate 86 92 H 89 Respiratory Rate Blood Pressure Blood Pressure [Left] O2 Sat by Pulse 98 98 98 Oximetry 08/09/20 08/09/20 08/09/20 07:01 07:02 07:07 Temperature Pulse Rate 86 97 H 91 H Respiratory Rate Blood Pressure 113/59 Blood Pressure [Left] O2 Sat by Pulse 97 97 Oximetry 08/09/20 08/09/20 08/09/20 07:12 07:17 07:18 Temperature Pulse Rate 98 H 93 H 93 H Respiratory Rate Blood Pressure Blood Pressure [Left] O2 Sat by Pulse 97 95 94 Oximetry 08/09/20 08/09/20 08/09/20 07:22 07:24 07:27 Temperature Pulse Rate 95 H 94 H 90 Respiratory Rate Blood Pressure Blood Pressure [Left] O2 Sat by Pulse 96 94 96 Oximetry 08/09/20 08/09/20 08/09/20 07:31 07:32 07:37 Temperature Pulse Rate 85 103 H 91 H Respiratory Rate Blood Pressure 107/54 Blood Pressure [Left] O2 Sat by Pulse 95 97 Oximetry 08/09/20 08/09/20 08/09/20 07:42 07:47 07:52 Temperature Pulse Rate 89 101 H 94 H Respiratory Rate Blood Pressure Blood Pressure [Left] O2 Sat by Pulse 94 97 98 Oximetry 08/09/20 08/09/20 08/09/20 07:57 08:01 08:02 Temperature Pulse Rate 83 94 H 85 Respiratory Rate Blood Pressure 117/62 Blood Pressure [Left] O2 Sat by Pulse 99 100 Oximetry 08/09/20 08/09/20 08/09/20 08:03 08:07 08:12 Temperature 97.9 F Pulse Rate 84 80 82 Respiratory 16 Rate Blood Pressure Blood Pressure 117/62 [Left] O2 Sat by Pulse 99 99 98 Oximetry 08/09/20 08/09/20 08:15 08:17 Temperature Pulse Rate 79 78 Respiratory Rate Blood Pressure Blood Pressure [Left] O2 Sat by Pulse 94 94 Oximetry - Exam Breasts: normal Cardiovascular: Regular rate Lungs: Clear to auscultation, Normal air movement Abdomen: Present: normal appearance, soft Uterus: Present: normal, fundal height above umbilicus FHR: auscultation normal Uterine Contraction Monitor Mode: External Uterine Contraction Pattern: Absent Uterine Tone Measurement Phase: Resting Extremities: normal - Labs Labs: Abnormal Labs 08/07/20 08/07/20 08/08/20 13:39 18:35 01:02 RDW 13.1 L Seg Neutrophils % 72.8 H Sodium Carbon Dioxide BUN Creatinine Glucose Calcium Magnesium 4.10 H 5.00 H ALT Total Protein Albumin 08/08/20 08/08/20 08/08/20 13:04 17:26 17:26 RDW Seg Neutrophils % Sodium 134 L Carbon Dioxide 17 L BUN 3 L Creatinine 0.5 L Glucose 145 H Calcium 7.2 L Magnesium 5.50 H 5.50 H ALT < 5 L Total Protein 6.1 L Albumin 3.8 L 08/09/20 00:31 RDW Seg Neutrophils % Sodium Carbon Dioxide BUN Creatinine Glucose Calcium Magnesium 5.50 H ALT Total Protein Albumin Laboratory Results - last 24 hr 08/08/20 08/08/20 08/08/20 13:04 17:26 17:26 Sodium 134 L Potassium 4.2 Chloride 99.8 Carbon Dioxide 17 L Anion Gap 21 BUN 3 L Creatinine 0.5 L Estimated GFR > 60 BUN/Creatinine Ratio 6 Glucose 145 H Calcium 7.2 L Magnesium 5.50 H 5.50 H Total Bilirubin < 0.20 AST 9 ALT < 5 L Alkaline Phosphatase 61 Total Protein 6.1 L Albumin 3.8 L Albumin/Globulin Ratio 1.7 08/09/20 00:31 Sodium Potassium Chloride Carbon Dioxide Anion Gap BUN Creatinine Estimated GFR BUN/Creatinine Ratio Glucose Calcium Magnesium 5.50 H Total Bilirubin AST ALT Alkaline Phosphatase Total Protein Albumin Albumin/Globulin Ratio <SUZI HANNON - Last Filed: 08/09/20 17:36> Assessment and Plan Resting in bed, no complaints, +FM. Diagnoses and plan of care explained. Questions encouraged and answered, she voiced understanding and agrees with plan of care - Patient Problems (1) 26 weeks gestation of Current Visit: Yes Status: Acute (2) labor in second trimester Current Visit: Yes Status: Acute Qualifiers: Fetus number: single or unspecified fetus (3) Pseudotumor cerebri Current Visit: Yes Status: Acute (4) Sickle cell trait Current Visit: Yes Status: Acute Objective - Vital Signs Vital Signs: Vital Signs - 12hr 08/09/20 08/09/20 08/09/20 05:37 05:42 05:47 Temperature Pulse Rate 103 H 91 H 84 Respiratory Rate Blood Pressure Blood Pressure [Left] O2 Sat by Pulse 99 94 96 Oximetry 08/09/20 08/09/20 08/09/20 05:48 05:52 05:57 Temperature Pulse Rate 87 87 89 Respiratory Rate Blood Pressure Blood Pressure [Left] O2 Sat by Pulse 94 96 95 Oximetry 08/09/20 08/09/20 08/09/20 05:58 06:01 06:02 Temperature Pulse Rate 91 H 85 88 Respiratory Rate Blood Pressure 97/51 Blood Pressure [Left] O2 Sat by Pulse 94 97 Oximetry 08/09/20 08/09/20 08/09/20 06:04 06:07 06:11 Temperature Pulse Rate 101 H 85 82 Respiratory Rate Blood Pressure Blood Pressure [Left] O2 Sat by Pulse 94 96 94 Oximetry 08/09/20 08/09/20 08/09/20 06:12 06:17 06:22 Temperature Pulse Rate 85 108 H 100 H Respiratory Rate Blood Pressure Blood Pressure [Left] O2 Sat by Pulse 96 98 97 Oximetry 08/09/20 08/09/20 08/09/20 06:27 06:31 06:32 Temperature Pulse Rate 98 H 88 95 H Respiratory Rate Blood Pressure 118/58 Blood Pressure [Left] O2 Sat by Pulse 97 98 Oximetry 08/09/20 08/09/20 08/09/20 06:37 06:42 06:47 Temperature Pulse Rate 93 H 98 H 86 Respiratory Rate Blood Pressure Blood Pressure [Left] O2 Sat by Pulse 97 96 98 Oximetry 08/09/20 08/09/20 08/09/20 06:52 06:57 07:01 Temperature Pulse Rate 92 H 89 86 Respiratory Rate Blood Pressure 113/59 Blood Pressure [Left] O2 Sat by Pulse 98 98 Oximetry 08/09/20 08/09/20 08/09/20 07:02 07:07 07:12 Temperature Pulse Rate 97 H 91 H 98 H Respiratory Rate Blood Pressure Blood Pressure [Left] O2 Sat by Pulse 97 97 97 Oximetry 08/09/20 08/09/20 08/09/20 07:17 07:18 07:22 Temperature Pulse Rate 93 H 93 H 95 H Respiratory Rate Blood Pressure Blood Pressure [Left] O2 Sat by Pulse 95 94 96 Oximetry 08/09/20 08/09/20 08/09/20 07:24 07:27 07:31 Temperature Pulse Rate 94 H 90 85 Respiratory Rate Blood Pressure 107/54 Blood Pressure [Left] O2 Sat by Pulse 94 96 Oximetry 08/09/20 08/09/20 08/09/20 07:32 07:37 07:42 Temperature Pulse Rate 103 H 91 H 89 Respiratory Rate Blood Pressure Blood Pressure [Left] O2 Sat by Pulse 95 97 94 Oximetry 08/09/20 08/09/20 08/09/20 07:47 07:52 07:57 Temperature Pulse Rate 101 H 94 H 83 Respiratory Rate Blood Pressure Blood Pressure [Left] O2 Sat by Pulse 97 98 99 Oximetry 08/09/20 08/09/20 08/09/20 08:01 08:02 08:03 Temperature 97.9 F Pulse Rate 94 H 85 84 Respiratory 16 Rate Blood Pressure 117/62 Blood Pressure 117/62 [Left] O2 Sat by Pulse 100 99 Oximetry 08/09/20 08/09/20 08/09/20 08:07 08:12 08:15 Temperature Pulse Rate 80 82 79 Respiratory Rate Blood Pressure Blood Pressure [Left] O2 Sat by Pulse 99 98 94 Oximetry 08/09/20 08/09/20 08/09/20 08:17 08:22 08:27 Temperature Pulse Rate 78 78 76 Respiratory Rate Blood Pressure Blood Pressure [Left] O2 Sat by Pulse 94 94 94 Oximetry 08/09/20 08/09/20 08/09/20 08:31 08:32 08:33 Temperature Pulse Rate 72 77 77 Respiratory Rate Blood Pressure 99/52 Blood Pressure [Left] O2 Sat by Pulse 95 94 Oximetry 08/09/20 08/09/20 08/09/20 08:37 08:42 08:47 Temperature Pulse Rate 78 95 H 83 Respiratory Rate Blood Pressure Blood Pressure [Left] O2 Sat by Pulse 94 98 97 Oximetry 08/09/20 08/09/20 08/09/20 08:52 08:57 09:01 Temperature Pulse Rate 84 86 85 Respiratory Rate Blood Pressure 118/58 Blood Pressure [Left] O2 Sat by Pulse 98 98 Oximetry 08/09/20 08/09/20 08/09/20 09:02 09:07 09:12 Temperature Pulse Rate 86 95 H 97 H Respiratory Rate Blood Pressure Blood Pressure [Left] O2 Sat by Pulse 98 97 97 Oximetry 08/09/20 08/09/20 08/09/20 09:17 09:22 09:27 Temperature Pulse Rate 90 87 86 Respiratory Rate Blood Pressure Blood Pressure [Left] O2 Sat by Pulse 97 98 97 Oximetry 08/09/20 08/09/20 08/09/20 09:31 09:32 09:36 Temperature Pulse Rate 157 H 85 108 H Respiratory Rate Blood Pressure 101/71 Blood Pressure [Left] O2 Sat by Pulse 93 95 94 Oximetry 08/09/20 08/09/20 08/09/20 09:37 09:42 09:43 Temperature Pulse Rate 85 82 78 Respiratory Rate Blood Pressure Blood Pressure [Left] O2 Sat by Pulse 95 95 94 Oximetry 08/09/20 08/09/20 08/09/20 09:47 09:52 09:57 Temperature Pulse Rate 84 87 102 H Respiratory Rate Blood Pressure Blood Pressure [Left] O2 Sat by Pulse 95 98 96 Oximetry 08/09/20 08/09/20 08/09/20 10:01 10:02 10:07 Temperature Pulse Rate 80 88 85 Respiratory Rate Blood Pressure 123/64 Blood Pressure [Left] O2 Sat by Pulse 94 97 99 Oximetry 08/09/20 08/09/20 08/09/20 10:12 10:17 10:22 Temperature Pulse Rate 82 82 91 H Respiratory Rate Blood Pressure Blood Pressure [Left] O2 Sat by Pulse 99 98 97 Oximetry 08/09/20 08/09/20 08/09/20 10:25 10:27 10:31 Temperature Pulse Rate 81 81 86 Respiratory Rate Blood Pressure 119/72 Blood Pressure [Left] O2 Sat by Pulse 84 99 Oximetry 08/09/20 08/09/20 08/09/20 10:32 10:37 10:42 Temperature Pulse Rate 84 85 82 Respiratory Rate Blood Pressure Blood Pressure [Left] O2 Sat by Pulse 100 99 98 Oximetry 08/09/20 08/09/20 08/09/20 10:47 10:52 10:55 Temperature Pulse Rate 88 84 Respiratory Rate Blood Pressure Blood Pressure [Left] O2 Sat by Pulse 99 99 91 Oximetry 08/09/20 08/09/20 08/09/20 10:57 11:01 11:02 Temperature Pulse Rate 106 H 88 106 H Respiratory Rate Blood Pressure 107/61 Blood Pressure [Left] O2 Sat by Pulse 99 98 Oximetry 08/09/20 08/09/20 08/09/20 11:07 11:12 11:17 Temperature Pulse Rate 90 116 H 105 H Respiratory Rate Blood Pressure Blood Pressure [Left] O2 Sat by Pulse 98 97 97 Oximetry 08/09/20 08/09/20 08/09/20 11:22 11:27 11:31 Temperature Pulse Rate 100 H 99 H 88 Respiratory Rate Blood Pressure 108/63 Blood Pressure [Left] O2 Sat by Pulse 98 95 Oximetry 08/09/20 08/09/20 08/09/20 11:32 11:37 11:42 Temperature Pulse Rate 100 H 93 H 104 H Respiratory Rate Blood Pressure Blood Pressure [Left] O2 Sat by Pulse 98 96 97 Oximetry 08/09/20 08/09/20 08/09/20 11:47 11:52 11:57 Temperature Pulse Rate 86 89 87 Respiratory Rate Blood Pressure Blood Pressure [Left] O2 Sat by Pulse 96 96 96 Oximetry 08/09/20 08/09/20 08/09/20 12:00 12:01 12:02 Temperature 98.2 F Pulse Rate 86 85 88 Respiratory 18 Rate Blood Pressure 107/59 Blood Pressure 107/59 [Left] O2 Sat by Pulse 94 96 95 Oximetry 08/09/20 08/09/20 08/09/20 12:06 12:07 12:12 Temperature Pulse Rate 67 100 H 85 Respiratory Rate Blood Pressure Blood Pressure [Left] O2 Sat by Pulse 93 97 96 Oximetry 08/09/20 08/09/20 08/09/20 12:17 12:22 12:27 Temperature Pulse Rate 87 118 H 101 H Respiratory Rate Blood Pressure Blood Pressure [Left] O2 Sat by Pulse 96 98 94 Oximetry 08/09/20 08/09/20 08/09/20 12:31 12:32 12:37 Temperature Pulse Rate 92 H 87 89 Respiratory Rate Blood Pressure 113/56 Blood Pressure [Left] O2 Sat by Pulse 97 99 Oximetry 08/09/20 08/09/20 08/09/20 12:42 12:47 12:52 Temperature Pulse Rate 90 99 H 88 Respiratory Rate Blood Pressure Blood Pressure [Left] O2 Sat by Pulse 99 99 98 Oximetry 08/09/20 08/09/20 08/09/20 12:57 13:01 13:02 Temperature Pulse Rate 86 83 85 Respiratory Rate Blood Pressure 111/63 Blood Pressure [Left] O2 Sat by Pulse 98 98 Oximetry 08/09/20 08/09/20 08/09/20 13:07 13:11 13:12 Temperature Pulse Rate 85 97 H 92 H Respiratory Rate Blood Pressure Blood Pressure [Left] O2 Sat by Pulse 99 90 97 Oximetry 08/09/20 08/09/20 08/09/20 13:17 13:22 13:27 Temperature Pulse Rate 90 91 H 105 H Respiratory Rate Blood Pressure Blood Pressure [Left] O2 Sat by Pulse 98 88 98 Oximetry 08/09/20 08/09/20 08/09/20 13:31 13:32 13:37 Temperature Pulse Rate 86 84 88 Respiratory Rate Blood Pressure 107/68 Blood Pressure [Left] O2 Sat by Pulse 99 99 Oximetry 08/09/20 08/09/20 08/09/20 13:42 13:47 13:52 Temperature Pulse Rate 90 75 84 Respiratory Rate Blood Pressure Blood Pressure [Left] O2 Sat by Pulse 98 99 98 Oximetry 08/09/20 08/09/20 08/09/20 13:57 14:01 14:02 Temperature Pulse Rate 94 H 86 88 Respiratory Rate Blood Pressure 105/67 Blood Pressure [Left] O2 Sat by Pulse 96 97 Oximetry 08/09/20 08/09/20 08/09/20 14:07 14:12 14:17 Temperature Pulse Rate 92 H 89 87 Respiratory Rate Blood Pressure Blood Pressure [Left] O2 Sat by Pulse 99 95 97 Oximetry 08/09/20 08/09/20 08/09/20 14:22 14:27 14:31 Temperature Pulse Rate 82 79 80 Respiratory Rate Blood Pressure 107/64 Blood Pressure [Left] O2 Sat by Pulse 96 97 Oximetry 08/09/20 08/09/20 08/09/20 14:32 14:37 14:42 Temperature Pulse Rate 85 83 86 Respiratory Rate Blood Pressure Blood Pressure [Left] O2 Sat by Pulse 96 97 97 Oximetry 08/09/20 08/09/20 08/09/20 14:47 14:52 14:54 Temperature Pulse Rate 84 86 91 H Respiratory Rate Blood Pressure Blood Pressure [Left] O2 Sat by Pulse 97 97 94 Oximetry 08/09/20 08/09/20 08/09/20 14:57 15:00 15:01 Temperature Pulse Rate 87 88 76 Respiratory Rate Blood Pressure 98/56 Blood Pressure [Left] O2 Sat by Pulse 95 92 Oximetry 04/30/21 04/30/21 04/30/21 15:02 15:06 15:07 Temperature Pulse Rate 78 84 112 H Respiratory Rate Blood Pressure Blood Pressure [Left] O2 Sat by Pulse 98 94 94 Oximetry 08/09/20 08/09/20 08/09/20 15:11 15:12 15:17 Temperature Pulse Rate 82 89 86 Respiratory Rate Blood Pressure Blood Pressure [Left] O2 Sat by Pulse 94 96 98 Oximetry 08/09/20 08/09/20 08/09/20 15:22 15:27 15:31 Temperature Pulse Rate 84 91 H 87 Respiratory Rate Blood Pressure 100/72 Blood Pressure [Left] O2 Sat by Pulse 98 98 Oximetry 08/09/20 08/09/20 08/09/20 15:32 15:37 15:42 Temperature Pulse Rate 96 H 71 83 Respiratory Rate Blood Pressure Blood Pressure [Left] O2 Sat by Pulse 93 96 99 Oximetry 08/09/20 08/09/20 08/09/20 15:43 15:48 15:49 Temperature Pulse Rate 98 H 70 101 H Respiratory Rate Blood Pressure Blood Pressure [Left] O2 Sat by Pulse 90 93 91 Oximetry 08/09/20 08/09/20 08/09/20 15:53 15:55 16:01 Temperature Pulse Rate 92 H 76 Respiratory Rate Blood Pressure 119/72 Blood Pressure [Left] O2 Sat by Pulse 87 95 94 Oximetry 08/09/20 08/09/20 08/09/20 16:06 16:11 16:12 Temperature Pulse Rate 82 86 87 Respiratory Rate Blood Pressure Blood Pressure [Left] O2 Sat by Pulse 98 98 91 Oximetry 08/09/20 08/09/20 08/09/20 16:17 16:22 16:24 Temperature Pulse Rate 84 82 32 L Respiratory Rate Blood Pressure Blood Pressure [Left] O2 Sat by Pulse 99 98 93 Oximetry 08/09/20 08/09/20 08/09/20 16:27 16:30 16:31 Temperature Pulse Rate 76 93 H 83 Respiratory Rate Blood Pressure 111/61 Blood Pressure [Left] O2 Sat by Pulse 94 88 Oximetry 08/09/20 08/09/20 08/09/20 16:32 16:37 16:44 Temperature Pulse Rate 85 89 89 Respiratory Rate Blood Pressure Blood Pressure [Left] O2 Sat by Pulse 100 97 78 L Oximetry 08/09/20 08/09/20 08/09/20 16:49 16:54 16:59 Temperature Pulse Rate 92 H 95 H 110 H Respiratory Rate Blood Pressure Blood Pressure [Left] O2 Sat by Pulse 99 83 L 92 Oximetry 08/09/20 08/09/20 08/09/20 17:00 17:01 17:05 Temperature Pulse Rate 102 H 109 H 111 H Respiratory Rate Blood Pressure 128/75 Blood Pressure [Left] O2 Sat by Pulse 100 97 Oximetry 08/09/20 08/09/20 08/09/20 17:07 17:10 17:15 Temperature Pulse Rate 117 H 94 H 92 H Respiratory Rate Blood Pressure Blood Pressure [Left] O2 Sat by Pulse 87 98 97 Oximetry 08/09/20 08/09/20 08/09/20 17:20 17:25 17:26 Temperature Pulse Rate 91 H 89 98 H Respiratory Rate Blood Pressure Blood Pressure [Left] O2 Sat by Pulse 97 97 92 Oximetry 08/09/20 08/09/20 17:30 17:31 Temperature Pulse Rate 91 H 88 Respiratory Rate Blood Pressure 124/70 Blood Pressure [Left] O2 Sat by Pulse 98 Oximetry - Labs Labs: Abnormal Labs 08/07/20 08/07/20 08/08/20 13:39 18:35 01:02 RDW 13.1 L Seg Neutrophils % 72.8 H Sodium Carbon Dioxide BUN Creatinine Glucose Calcium Magnesium 4.10 H 5.00 H ALT Total Protein Albumin 08/08/20 08/08/20 08/08/20 13:04 17:26 17:26 RDW Seg Neutrophils % Sodium 134 L Carbon Dioxide 17 L BUN 3 L Creatinine 0.5 L Glucose 145 H Calcium 7.2 L Magnesium 5.50 H 5.50 H ALT < 5 L Total Protein 6.1 L Albumin 3.8 L 08/09/20 08/09/20 08/09/20 00:31 07:32 12:24 RDW Seg Neutrophils % Sodium Carbon Dioxide BUN Creatinine Glucose Calcium Magnesium 5.50 H 5.30 H 5.50 H ALT Total Protein Albumin Laboratory Results - last 24 hr 08/08/20 08/08/20 08/08/20 09:15 17:26 17:26 Sodium 134 L Potassium 4.2 Chloride 99.8 Carbon Dioxide 17 L Anion Gap 21 BUN 3 L Creatinine 0.5 L Estimated GFR > 60 BUN/Creatinine Ratio 6 Glucose 145 H Calcium 7.2 L Magnesium 5.50 H Total Bilirubin < 0.20 AST 9 ALT < 5 L Alkaline Phosphatase 61 Total Protein 6.1 L Albumin 3.8 L Albumin/Globulin Ratio 1.7 Coronavirus (PCR) Negative 08/09/20 08/09/20 08/09/20 00:31 07:32 12:24 Sodium Potassium Chloride Carbon Dioxide Anion Gap BUN Creatinine Estimated GFR BUN/Creatinine Ratio Glucose Calcium Magnesium 5.50 H 5.30 H 5.50 H Total Bilirubin AST ALT Alkaline Phosphatase Total Protein Albumin Albumin/Globulin Ratio Coronavirus (PCR)
[2020-08-09] MEDS: PRENATAL VIT27-FE FUMARATE-FOLIC ACID VIT TAB PO SCH (09:48)
--- NOTE | 2020-08-09 14:05 | Ultrasound Report ---
ULTRASOUND OBSTETRIC LIMITED INDICATION / CLINICAL INFORMATION: Growth scan. Clinical Gestational Age (GA) in weeks, days: 26 weeks 3 days. TECHNIQUE: Transabdominal. COMPARISON: Limited OB ultrasound 08/07/2020. FINDINGS: HEART RATE (beats per minute): 139 AMNIOTIC FLUID INDEX (cm) = 14.0 cm. (normal = 7-24 cm) PRESENTATION: Cephalic. MEASUREMENTS: - Biparietal Diameter = 6.5 cm = 26 weeks, 1 days - Head Circumference = 24 cm = 25 weeks, 5 days - Abdominal Circumference = 20 cm = 24 weeks, 6 days - Femur Length = 5.0 cm = 26 weeks, 0 days - Estimated Weight (in grams, if calculated): 806 AVERAGE ULTRASOUND AGE (AUA) in weeks, days = 25 weeks 5 days. ADDITIONAL FINDINGS: None. IMPRESSION: 1. Single intrauterine with AUA of 25 weeks, 5 days 2. No significant sonographic abnormality. Scribed by: Christine Car RDMS, RVT Scribed: 08/09/2020 10:58 AM Signer Name: Adam Ayers MD Signed: 08/09/2020 2:01 PM Workstation Name: [id number]
[2020-08-09] MEDS ORDERED: ACETAMINOPHEN 325 MG TAB PO PRN (19:53)
[2020-08-09] MEDS: CALCIUM CARBONATE 500 MG TAB CHEW PO PRN ×2 (21:14→23:19)
[2020-08-10] MEDS: CALCIUM CARBONATE 500 MG TAB CHEW PO PRN (06:49)
--- NOTE | 2020-08-10 07:11 | Progress Note ---
Assessment and Plan - Patient Problems (1) 26 weeks gestation of Onset Date: ~08/10/20 Current Visit: Yes Status: Acute Plan to address problem: Steroids completed. Continuous monitoring VSS Pt reports good FM Denies ctx. Pt asked me right off if the baby was coming down? I asked if she had any pressure Denies any ctx or pressure. Consulted with Dr Hickman continue POC (2) Abnormal glucose tolerance test (GTT) during , antepartum Onset Date: ~08/10/20 Current Visit: Yes Status: Acute Plan to address problem: consulted with Dr Hickman Will plan for 3hr GTT Wednesday Last steroid given 08-08-20 Subjective - Subjective Date of service: 08/10/20 (resting No c/o voiced) Principal diagnosis: IUP @26w4d; labor; antenal steriods complete Patient reports: movement normal, no new complaints, no loss of fluid, no vaginal bleeding, no contractions Objective - Vital Signs Vital Signs: Vital Signs - 12hr 08/09/20 08/09/20 08/09/20 19:10 19:15 19:20 Temperature Pulse Rate 90 88 92 H Respiratory Rate Blood Pressure O2 Sat by Pulse 99 98 97 Oximetry 08/09/20 08/09/20 08/09/20 19:21 19:25 19:26 Temperature Pulse Rate 85 86 89 Respiratory Rate Blood Pressure O2 Sat by Pulse 89 99 88 Oximetry 08/09/20 08/09/20 08/09/20 19:30 19:35 19:40 Temperature Pulse Rate 84 86 84 Respiratory Rate Blood Pressure 105/61 O2 Sat by Pulse 99 98 98 Oximetry 08/09/20 08/09/20 08/09/20 19:45 19:50 19:55 Temperature Pulse Rate 89 80 89 Respiratory Rate Blood Pressure O2 Sat by Pulse 98 98 98 Oximetry 08/09/20 08/09/20 08/09/20 19:57 20:00 20:03 Temperature 98.1 F Pulse Rate 87 84 86 Respiratory 18 Rate Blood Pressure 109/63 O2 Sat by Pulse 90 98 93 Oximetry 08/09/20 08/09/20 08/09/20 20:05 20:10 20:15 Temperature Pulse Rate 88 84 95 H Respiratory Rate Blood Pressure O2 Sat by Pulse 99 97 85 Oximetry 08/09/20 08/09/20 08/09/20 20:20 20:22 20:25 Temperature Pulse Rate 89 76 85 Respiratory Rate Blood Pressure O2 Sat by Pulse 96 88 96 Oximetry 08/09/20 08/09/20 08/09/20 20:30 20:35 20:38 Temperature Pulse Rate 81 80 91 H Respiratory Rate Blood Pressure 102/65 O2 Sat by Pulse 96 96 85 Oximetry 08/09/20 08/09/20 08/09/20 20:40 20:43 20:45 Temperature Pulse Rate 98 H 86 Respiratory Rate Blood Pressure O2 Sat by Pulse 98 75 L 97 Oximetry 08/09/20 08/09/20 08/09/20 20:50 20:55 21:00 Temperature Pulse Rate 58 L 84 83 Respiratory Rate Blood Pressure 104/64 O2 Sat by Pulse 97 97 99 Oximetry 08/09/20 08/09/20 08/09/20 21:05 21:10 21:15 Temperature Pulse Rate 80 80 90 Respiratory Rate Blood Pressure O2 Sat by Pulse 98 97 98 Oximetry 08/09/20 08/09/20 08/09/20 21:20 21:22 21:25 Temperature Pulse Rate 89 70 90 Respiratory Rate Blood Pressure O2 Sat by Pulse 97 94 97 Oximetry 08/09/20 08/09/20 08/09/20 21:30 21:35 21:38 Temperature Pulse Rate 84 94 H 55 L Respiratory Rate Blood Pressure 122/75 O2 Sat by Pulse 98 97 81 L Oximetry 08/09/20 08/09/20 08/09/20 21:40 21:44 21:45 Temperature Pulse Rate 79 84 90 Respiratory Rate Blood Pressure O2 Sat by Pulse 99 93 94 Oximetry 08/09/20 08/09/20 08/09/20 21:50 21:55 22:00 Temperature Pulse Rate 79 87 80 Respiratory Rate Blood Pressure 113/62 O2 Sat by Pulse 97 97 100 Oximetry 08/09/20 08/09/20 08/09/20 22:05 22:10 22:15 Temperature Pulse Rate 84 82 85 Respiratory Rate Blood Pressure O2 Sat by Pulse 98 100 100 Oximetry 08/09/20 08/09/20 08/09/20 22:20 22:25 22:30 Temperature Pulse Rate 79 82 85 Respiratory Rate Blood Pressure 109/64 O2 Sat by Pulse 99 99 98 Oximetry 08/09/20 08/09/20 08/09/20 22:35 22:40 22:42 Temperature Pulse Rate 83 88 101 H Respiratory Rate Blood Pressure O2 Sat by Pulse 98 98 94 Oximetry 08/09/20 08/09/20 08/09/20 22:45 22:50 22:55 Temperature Pulse Rate 82 89 85 Respiratory Rate Blood Pressure O2 Sat by Pulse 98 98 98 Oximetry 08/09/20 08/09/20 08/09/20 23:00 23:05 23:09 Temperature Pulse Rate 85 87 93 H Respiratory Rate Blood Pressure 107/61 O2 Sat by Pulse 98 98 94 Oximetry 08/09/20 08/09/20 08/09/20 23:11 23:16 23:21 Temperature Pulse Rate 84 90 Respiratory Rate Blood Pressure O2 Sat by Pulse 80 L 96 97 Oximetry 08/09/20 08/09/20 08/09/20 23:26 23:30 23:31 Temperature Pulse Rate 90 81 85 Respiratory Rate Blood Pressure 105/60 O2 Sat by Pulse 98 99 Oximetry 08/09/20 08/09/20 08/09/20 23:36 23:41 23:46 Temperature Pulse Rate 81 86 99 H Respiratory Rate Blood Pressure O2 Sat by Pulse 97 98 96 Oximetry 08/09/20 08/09/20 08/09/20 23:48 23:51 23:53 Temperature Pulse Rate 76 78 80 Respiratory Rate Blood Pressure O2 Sat by Pulse 94 96 94 Oximetry 08/09/20 08/10/20 08/10/20 23:56 00:00 00:01 Temperature Pulse Rate 84 76 77 Respiratory Rate Blood Pressure 100/63 O2 Sat by Pulse 96 97 Oximetry 08/10/20 08/10/20 08/10/20 00:06 00:11 00:16 Temperature Pulse Rate 77 83 86 Respiratory Rate Blood Pressure O2 Sat by Pulse 96 94 97 Oximetry 08/10/20 08/10/20 08/10/20 00:17 00:21 00:38 Temperature Pulse Rate 86 85 83 Respiratory Rate Blood Pressure O2 Sat by Pulse 91 98 83 L Oximetry 08/10/20 08/10/20 08/10/20 00:43 00:44 00:48 Temperature Pulse Rate 86 86 Respiratory Rate Blood Pressure O2 Sat by Pulse 93 93 96 Oximetry 08/10/20 08/10/20 08/10/20 00:53 00:58 01:00 Temperature Pulse Rate 97 H 99 H 78 Respiratory Rate Blood Pressure 116/67 O2 Sat by Pulse 93 93 Oximetry 08/10/20 08/10/20 08/10/20 01:03 01:08 01:10 Temperature Pulse Rate 80 85 90 Respiratory Rate Blood Pressure O2 Sat by Pulse 98 96 89 Oximetry 08/10/20 08/10/20 08/10/20 01:13 01:18 01:21 Temperature Pulse Rate 100 H 99 H 90 Respiratory Rate Blood Pressure O2 Sat by Pulse 90 96 94 Oximetry 08/10/20 08/10/20 08/10/20 01:23 01:27 01:28 Temperature Pulse Rate 96 H 79 71 Respiratory Rate Blood Pressure O2 Sat by Pulse 95 90 99 Oximetry 08/10/20 08/10/20 08/10/20 01:30 01:33 01:38 Temperature Pulse Rate 76 80 89 Respiratory Rate Blood Pressure 118/66 O2 Sat by Pulse 97 87 Oximetry 08/10/20 08/10/20 08/10/20 01:43 01:47 01:48 Temperature Pulse Rate 82 71 66 Respiratory Rate Blood Pressure O2 Sat by Pulse 97 87 92 Oximetry 08/10/20 08/10/20 08/10/20 01:53 01:55 01:58 Temperature Pulse Rate 92 H 81 Respiratory Rate Blood Pressure O2 Sat by Pulse 96 83 L 95 Oximetry 08/10/20 08/10/20 08/10/20 02:00 02:03 02:06 Temperature Pulse Rate 81 81 82 Respiratory Rate Blood Pressure 108/59 O2 Sat by Pulse 91 95 94 Oximetry 08/10/20 08/10/20 08/10/20 02:08 02:11 02:13 Temperature Pulse Rate 80 94 H 80 Respiratory Rate Blood Pressure O2 Sat by Pulse 95 93 96 Oximetry 08/10/20 08/10/20 08/10/20 02:16 02:18 02:23 Temperature Pulse Rate 78 95 H 92 H Respiratory Rate Blood Pressure O2 Sat by Pulse 94 92 96 Oximetry 08/10/20 08/10/20 08/10/20 02:28 02:33 02:34 Temperature Pulse Rate 98 H 107 H 107 H Respiratory Rate Blood Pressure O2 Sat by Pulse 89 85 85 Oximetry 08/10/20 08/10/20 08/10/20 02:39 02:44 02:49 Temperature Pulse Rate 86 99 H 96 H Respiratory Rate Blood Pressure O2 Sat by Pulse 99 99 99 Oximetry 08/10/20 08/10/20 08/10/20 02:54 02:59 03:02 Temperature Pulse Rate 93 H 97 H 91 H Respiratory Rate Blood Pressure 90/53 O2 Sat by Pulse 99 97 Oximetry 08/10/20 08/10/20 08/10/20 03:04 03:09 03:14 Temperature Pulse Rate 90 88 88 Respiratory Rate Blood Pressure O2 Sat by Pulse 98 98 98 Oximetry 08/10/20 08/10/20 08/10/20 03:19 03:24 03:29 Temperature Pulse Rate 91 H 94 H 84 Respiratory Rate Blood Pressure O2 Sat by Pulse 98 97 97 Oximetry 08/10/20 08/10/20 08/10/20 03:30 03:34 03:39 Temperature Pulse Rate 90 88 85 Respiratory Rate Blood Pressure 95/45 O2 Sat by Pulse 98 98 Oximetry 08/10/20 08/10/20 08/10/20 03:44 03:49 03:54 Temperature Pulse Rate 88 93 H 84 Respiratory Rate Blood Pressure O2 Sat by Pulse 97 97 97 Oximetry 08/10/20 08/10/20 08/10/20 04:01 04:02 04:03 Temperature Pulse Rate 72 90 93 H Respiratory Rate Blood Pressure 127/63 O2 Sat by Pulse 82 L 86 Oximetry 08/10/20 08/10/20 08/10/20 04:06 04:07 04:12 Temperature Pulse Rate 84 83 88 Respiratory Rate Blood Pressure O2 Sat by Pulse 94 95 94 Oximetry 08/10/20 08/10/20 08/10/20 04:15 04:17 04:22 Temperature 98.3 F Pulse Rate 84 82 Respiratory 16 Rate Blood Pressure O2 Sat by Pulse 93 94 Oximetry 08/10/20 08/10/20 08/10/20 04:27 04:29 04:32 Temperature Pulse Rate 78 81 83 Respiratory Rate Blood Pressure O2 Sat by Pulse 95 94 100 Oximetry 08/10/20 08/10/20 08/10/20 04:37 04:42 04:47 Temperature Pulse Rate 85 87 86 Respiratory Rate Blood Pressure O2 Sat by Pulse 98 98 98 Oximetry 08/10/20 08/10/20 08/10/20 04:52 04:57 05:02 Temperature Pulse Rate 81 78 79 Respiratory Rate Blood Pressure O2 Sat by Pulse 93 99 97 Oximetry 08/10/20 08/10/20 08/10/20 05:07 05:12 05:17 Temperature Pulse Rate 82 82 81 Respiratory Rate Blood Pressure O2 Sat by Pulse 98 98 98 Oximetry 08/10/20 08/10/20 08/10/20 05:21 05:22 05:26 Temperature Pulse Rate 84 45 L 81 Respiratory Rate Blood Pressure O2 Sat by Pulse 89 89 94 Oximetry 08/10/20 08/10/20 08/10/20 05:27 05:31 05:32 Temperature Pulse Rate 71 78 72 Respiratory Rate Blood Pressure O2 Sat by Pulse 95 94 95 Oximetry 08/10/20 08/10/20 08/10/20 05:37 05:38 05:52 Temperature Pulse Rate 72 89 60 Respiratory Rate Blood Pressure O2 Sat by Pulse 95 91 89 Oximetry 08/10/20 08/10/20 08/10/20 05:57 06:00 06:02 Temperature Pulse Rate 89 90 Respiratory Rate Blood Pressure O2 Sat by Pulse 95 90 89 Oximetry 08/10/20 08/10/20 08/10/20 06:05 06:07 06:11 Temperature Pulse Rate 73 82 73 Respiratory Rate Blood Pressure O2 Sat by Pulse 94 95 94 Oximetry 08/10/20 08/10/20 08/10/20 06:12 06:17 06:19 Temperature Pulse Rate 73 77 73 Respiratory Rate Blood Pressure O2 Sat by Pulse 94 94 94 Oximetry 08/10/20 08/10/20 08/10/20 06:23 06:26 06:28 Temperature Pulse Rate 82 74 Respiratory Rate Blood Pressure O2 Sat by Pulse 91 85 98 Oximetry 08/10/20 08/10/20 08/10/20 06:33 06:38 06:43 Temperature Pulse Rate 73 80 87 Respiratory Rate Blood Pressure O2 Sat by Pulse 97 96 99 Oximetry 08/10/20 08/10/20 08/10/20 06:44 06:48 06:50 Temperature Pulse Rate 67 87 101 H Respiratory Rate Blood Pressure O2 Sat by Pulse 78 L 98 93 Oximetry 08/10/20 08/10/20 08/10/20 06:53 06:58 07:03 Temperature Pulse Rate 78 80 51 L Respiratory Rate Blood Pressure O2 Sat by Pulse 96 95 91 Oximetry - Exam Breasts: deferred Cardiovascular: Regular rate Lungs: Clear to auscultation, Normal air movement Abdomen: Present: normal appearance, soft. Absent: distention, tenderness Uterus: Present: normal FHR: auscultation normal FHR comments: 140-150 pt reports good movement Uterine Contraction Monitor Mode: External Uterine Contraction Pattern: Absent Uterine Tone Measurement Phase: Resting Uterine Contraction Intensity: Mild Extremities: normal Deep Tendon Reflex Grade: Normal +2 - Labs Labs: Abnormal Labs 08/07/20 08/07/20 08/08/20 13:39 18:35 01:02 RDW 13.1 L Seg Neutrophils % 72.8 H Sodium Carbon Dioxide BUN Creatinine Glucose Calcium Magnesium 4.10 H 5.00 H ALT Total Protein Albumin 08/08/20 08/08/20 08/08/20 13:04 17:26 17:26 RDW Seg Neutrophils % Sodium 134 L Carbon Dioxide 17 L BUN 3 L Creatinine 0.5 L Glucose 145 H Calcium 7.2 L Magnesium 5.50 H 5.50 H ALT < 5 L Total Protein 6.1 L Albumin 3.8 L 08/09/20 08/09/20 08/09/20 00:31 07:32 12:24 RDW Seg Neutrophils % Sodium Carbon Dioxide BUN Creatinine Glucose Calcium Magnesium 5.50 H 5.30 H 5.50 H ALT Total Protein Albumin 08/09/20 08/10/20 18:08 01:07 RDW Seg Neutrophils % Sodium Carbon Dioxide BUN Creatinine Glucose Calcium Magnesium 4.80 H 3.60 H ALT Total Protein Albumin Laboratory Results - last 24 hr 08/08/20 08/09/20 08/09/20 09:15 07:32 12:24 Magnesium 5.30 H 5.50 H Coronavirus (PCR) Negative 08/09/20 08/10/20 18:08 01:07 Magnesium 4.80 H 3.60 H Coronavirus (PCR)
[2020-08-10] MEDS: FAMOTIDINE 20 MG/2 ML INJ IV SCH ×2 (08:10→20:02)
[2020-08-10] MEDS ORDERED: FAMOTIDINE 20 MG/2 ML INJ IV SCH (10:00)
[2020-08-10] MEDS: PRENATAL VIT27-FE FUMARATE-FOLIC ACID VIT TAB PO SCH (10:29)
[2020-08-10] MEDS: LACTATED RINGERS 1,000 ML IV SCH (12:08)
[2020-08-10 18:19] LABS: Bilirubin,Urine NEG (Negative); Blood,Urine NEG (Negative); Color,Urine Yellow (Yellow); Mucus,Urine FEW /HPF; Protein,Urine <15 mg/dL mg/dL (Negative); Urobilinogen,Urine < 2.0 mg/dL (<2.0); WBC,Urine < 1.0 /HPF (0.0-6.0)
[2020-08-11] MEDS: LACTATED RINGERS 1,000 ML IV SCH ×2 (00:04→18:15)
[2020-08-11] MEDS: ACETAMINOPHEN 500 MG TAB PO PRN ×2 (04:24→23:43)
--- NOTE | 2020-08-11 06:15 | Progress Note ---
Assessment and Plan - Patient Problems (1) 26 weeks gestation of Onset Date: ~08/10/20 Current Visit: Yes Status: Acute Plan to address problem: Pt resting C/O a sore mouth Cepacol and Magic Mouthwash ordered VSS Cat 1 strip for 26w. No ctx noted. Pt denies leaking of fluid. Pt will be OOB for quick sit sown shower, AM care. Diet ordered. Will continue close monitoring. Will await [facility] recommendations to POC. Dr Hickman updated (2) Abnormal glucose tolerance test (GTT) during , antepartum Onset Date: ~08/10/20 Current Visit: Yes Status: Acute Plan to address problem: 3hr GTT scheduled for Wednesday08-15-20 Pt to be NPO after MN. Order in EMR per Dr Hickman's recommendation Subjective - Subjective Date of service: 08/11/20 (c/o sore mouth; requesting body lotion!) Principal diagnosis: IUP @26w5d; labor; steriods complete Patient reports: movement normal, no new complaints, no loss of fluid, no vaginal bleeding, no contractions Objective - Vital Signs Vital Signs: Vital Signs - 12hr 08/10/20 08/10/20 08/10/20 18:20 18:25 18:30 Temperature Pulse Rate 84 75 83 Respiratory Rate Blood Pressure O2 Sat by Pulse 97 97 98 Oximetry 08/10/20 08/10/20 08/10/20 18:35 18:40 18:45 Temperature Pulse Rate 74 75 78 Respiratory Rate Blood Pressure O2 Sat by Pulse 97 97 96 Oximetry 08/10/20 08/10/20 08/10/20 18:50 18:55 19:00 Temperature Pulse Rate 77 77 91 H Respiratory Rate Blood Pressure O2 Sat by Pulse 95 96 97 Oximetry 08/10/20 08/10/20 08/10/20 19:02 19:05 19:10 Temperature 98.1 F Pulse Rate 85 80 95 H Respiratory 20 Rate Blood Pressure 113/56 O2 Sat by Pulse 100 97 97 Oximetry 08/10/20 08/10/20 08/10/20 19:15 19:20 19:25 Temperature Pulse Rate 87 85 79 Respiratory Rate Blood Pressure O2 Sat by Pulse 97 97 97 Oximetry 08/10/20 08/10/20 08/10/20 19:30 19:35 19:40 Temperature Pulse Rate 93 H 82 77 Respiratory Rate Blood Pressure O2 Sat by Pulse 98 99 99 Oximetry 08/10/20 08/10/20 08/10/20 19:45 19:56 20:01 Temperature Pulse Rate 81 101 H 95 H Respiratory Rate Blood Pressure O2 Sat by Pulse 98 96 99 Oximetry 08/10/20 08/10/20 08/10/20 20:06 20:11 20:16 Temperature Pulse Rate 102 H 94 H 79 Respiratory Rate Blood Pressure O2 Sat by Pulse 98 99 97 Oximetry 08/10/20 08/10/20 08/10/20 20:21 20:26 20:31 Temperature Pulse Rate 81 80 79 Respiratory Rate Blood Pressure O2 Sat by Pulse 97 97 98 Oximetry 08/10/20 08/10/20 08/10/20 20:36 20:41 20:46 Temperature Pulse Rate 78 80 78 Respiratory Rate Blood Pressure O2 Sat by Pulse 97 99 96 Oximetry 08/10/20 08/10/20 08/10/20 20:50 20:51 20:56 Temperature Pulse Rate 97 H 98 H Respiratory Rate Blood Pressure O2 Sat by Pulse 93 100 99 Oximetry 08/10/20 08/10/20 08/10/20 21:01 21:06 21:11 Temperature Pulse Rate 97 H 82 85 Respiratory Rate Blood Pressure O2 Sat by Pulse 98 99 98 Oximetry 08/10/20 08/10/20 08/10/20 21:16 21:21 21:25 Temperature Pulse Rate 90 80 80 Respiratory Rate Blood Pressure O2 Sat by Pulse 95 95 94 Oximetry 08/10/20 08/10/20 08/10/20 21:26 21:31 21:32 Temperature Pulse Rate 85 82 88 Respiratory Rate Blood Pressure O2 Sat by Pulse 96 95 94 Oximetry 08/10/20 08/10/20 08/10/20 21:36 21:39 21:41 Temperature Pulse Rate 83 86 91 H Respiratory Rate Blood Pressure O2 Sat by Pulse 97 94 97 Oximetry 08/10/20 08/10/20 08/10/20 21:46 21:51 21:56 Temperature Pulse Rate 86 85 80 Respiratory Rate Blood Pressure O2 Sat by Pulse 97 96 97 Oximetry 08/10/20 08/10/20 08/10/20 22:01 22:06 22:11 Temperature Pulse Rate 77 89 81 Respiratory Rate Blood Pressure O2 Sat by Pulse 95 97 96 Oximetry 08/10/20 08/10/20 08/10/20 22:16 22:21 22:26 Temperature Pulse Rate 98 H 85 84 Respiratory Rate Blood Pressure O2 Sat by Pulse 99 99 97 Oximetry 08/10/20 08/10/20 08/10/20 22:31 22:36 22:41 Temperature Pulse Rate 84 81 80 Respiratory Rate Blood Pressure O2 Sat by Pulse 96 98 97 Oximetry 08/10/20 08/10/20 08/10/20 22:46 22:51 22:56 Temperature Pulse Rate 84 87 93 H Respiratory Rate Blood Pressure O2 Sat by Pulse 95 98 98 Oximetry 08/10/20 08/10/20 08/10/20 23:16 23:31 23:36 Temperature Pulse Rate 92 H 77 Respiratory Rate Blood Pressure O2 Sat by Pulse 97 97 99 Oximetry 08/10/20 08/10/20 08/10/20 23:41 23:46 23:51 Temperature Pulse Rate 80 84 87 Respiratory Rate Blood Pressure O2 Sat by Pulse 98 98 97 Oximetry 08/10/20 08/11/20 08/11/20 23:56 00:00 00:01 Temperature 98.0 F Pulse Rate 83 75 88 Respiratory 16 Rate Blood Pressure 121/57 O2 Sat by Pulse 98 96 Oximetry 08/11/20 08/11/20 08/11/20 00:06 00:11 00:16 Temperature Pulse Rate 85 89 Respiratory Rate Blood Pressure O2 Sat by Pulse 98 100 99 Oximetry 08/11/20 08/11/20 08/11/20 00:21 00:26 00:31 Temperature Pulse Rate 81 81 99 H Respiratory Rate Blood Pressure O2 Sat by Pulse 100 98 99 Oximetry 08/11/20 08/11/20 08/11/20 00:36 00:41 00:46 Temperature Pulse Rate 80 86 83 Respiratory Rate Blood Pressure O2 Sat by Pulse 98 99 99 Oximetry 08/11/20 08/11/20 08/11/20 00:51 00:56 01:01 Temperature Pulse Rate 87 81 85 Respiratory Rate Blood Pressure O2 Sat by Pulse 97 97 98 Oximetry 08/11/20 08/11/20 08/11/20 01:06 01:11 01:16 Temperature Pulse Rate 83 83 82 Respiratory Rate Blood Pressure O2 Sat by Pulse 98 99 98 Oximetry 08/11/20 08/11/20 08/11/20 01:44 01:49 01:54 Temperature Pulse Rate 101 H 81 83 Respiratory Rate Blood Pressure O2 Sat by Pulse 97 98 98 Oximetry 08/11/20 08/11/20 08/11/20 01:59 02:04 02:09 Temperature Pulse Rate 70 81 89 Respiratory Rate Blood Pressure O2 Sat by Pulse 98 97 98 Oximetry 08/11/20 08/11/20 08/11/20 02:14 02:19 02:24 Temperature Pulse Rate 79 79 79 Respiratory Rate Blood Pressure O2 Sat by Pulse 98 97 97 Oximetry 08/11/20 08/11/20 08/11/20 02:29 02:34 02:35 Temperature Pulse Rate 82 80 78 Respiratory Rate Blood Pressure O2 Sat by Pulse 97 95 94 Oximetry 08/11/20 08/11/20 08/11/20 02:39 02:41 02:44 Temperature Pulse Rate 70 74 84 Respiratory Rate Blood Pressure O2 Sat by Pulse 95 94 92 Oximetry 08/11/20 08/11/20 08/11/20 02:46 02:49 02:52 Temperature Pulse Rate 75 99 H 72 Respiratory Rate Blood Pressure O2 Sat by Pulse 94 91 93 Oximetry 08/11/20 08/11/20 08/11/20 02:54 02:57 02:59 Temperature Pulse Rate 70 77 76 Respiratory Rate Blood Pressure O2 Sat by Pulse 97 93 95 Oximetry 08/11/20 08/11/20 08/11/20 03:05 03:10 03:15 Temperature Pulse Rate 94 H 84 98 H Respiratory Rate Blood Pressure O2 Sat by Pulse 98 99 98 Oximetry 08/11/20 08/11/20 08/11/20 03:20 03:25 03:30 Temperature Pulse Rate 89 85 83 Respiratory Rate Blood Pressure O2 Sat by Pulse 98 97 95 Oximetry 08/11/20 08/11/20 08/11/20 03:35 03:40 03:45 Temperature Pulse Rate 86 82 85 Respiratory Rate Blood Pressure O2 Sat by Pulse 96 96 94 Oximetry 08/11/20 08/11/20 08/11/20 03:50 03:55 03:59 Temperature Pulse Rate 81 80 91 H Respiratory Rate Blood Pressure O2 Sat by Pulse 95 96 93 Oximetry 08/11/20 08/11/20 08/11/20 04:00 04:09 04:12 Temperature 98.2 F Pulse Rate 79 78 93 H Respiratory 16 Rate Blood Pressure 122/72 O2 Sat by Pulse 94 98 Oximetry 08/11/20 08/11/20 08/11/20 04:17 04:22 04:27 Temperature Pulse Rate 83 80 84 Respiratory Rate Blood Pressure O2 Sat by Pulse 99 98 98 Oximetry 08/11/20 08/11/20 08/11/20 04:32 04:37 04:42 Temperature Pulse Rate 78 98 H 81 Respiratory Rate Blood Pressure O2 Sat by Pulse 98 98 98 Oximetry 08/11/20 08/11/20 08/11/20 04:47 04:52 04:57 Temperature Pulse Rate 72 82 81 Respiratory Rate Blood Pressure O2 Sat by Pulse 98 97 98 Oximetry 08/11/20 08/11/20 08/11/20 05:02 05:07 05:12 Temperature Pulse Rate 79 83 83 Respiratory Rate Blood Pressure O2 Sat by Pulse 98 97 98 Oximetry 08/11/20 08/11/20 08/11/20 05:17 05:22 05:27 Temperature Pulse Rate 83 76 74 Respiratory Rate Blood Pressure O2 Sat by Pulse 96 97 97 Oximetry 08/11/20 08/11/20 08/11/20 05:32 05:36 05:37 Temperature Pulse Rate 79 71 74 Respiratory Rate Blood Pressure O2 Sat by Pulse 96 94 95 Oximetry 08/11/20 08/11/20 08/11/20 05:42 05:44 05:47 Temperature Pulse Rate 84 71 76 Respiratory Rate Blood Pressure O2 Sat by Pulse 96 94 97 Oximetry 08/11/20 08/11/20 08/11/20 05:49 05:52 05:56 Temperature Pulse Rate 79 84 85 Respiratory Rate Blood Pressure O2 Sat by Pulse 94 93 94 Oximetry 08/11/20 08/11/20 08/11/20 05:57 06:02 06:07 Temperature Pulse Rate 80 82 78 Respiratory Rate Blood Pressure O2 Sat by Pulse 94 94 94 Oximetry 08/11/20 08/11/20 06:12 06:14 Temperature Pulse Rate 79 77 Respiratory Rate Blood Pressure O2 Sat by Pulse 93 94 Oximetry - Exam Narrative Exam: No obvious sores noted in pt's mouth or gums; she does have of dental cavities. Cepacol ordered. Also asking if pharmacy can make Magic mouth Wash. Breasts: deferred Cardiovascular: Regular rate Lungs: Clear to auscultation Abdomen: Present: normal appearance, soft. Absent: distention, tenderness Uterus: Present: normal FHR: auscultation normal, category 1 Uterine Tone Measurement Phase: Resting Extremities: normal Deep Tendon Reflex Grade: Normal +2 - Labs Labs: Abnormal Labs 08/07/20 08/07/20 08/08/20 13:39 18:35 01:02 RDW 13.1 L Seg Neutrophils % 72.8 H Sodium Carbon Dioxide BUN Creatinine Glucose Calcium Magnesium 4.10 H 5.00 H ALT Total Protein Albumin 08/08/20 08/08/20 08/08/20 13:04 17:26 17:26 RDW Seg Neutrophils % Sodium 134 L Carbon Dioxide 17 L BUN 3 L Creatinine 0.5 L Glucose 145 H Calcium 7.2 L Magnesium 5.50 H 5.50 H ALT < 5 L Total Protein 6.1 L Albumin 3.8 L 08/09/20 08/09/20 08/09/20 00:31 07:32 12:24 RDW Seg Neutrophils % Sodium Carbon Dioxide BUN Creatinine Glucose Calcium Magnesium 5.50 H 5.30 H 5.50 H ALT Total Protein Albumin 08/09/20 08/10/20 18:08 01:07 RDW Seg Neutrophils % Sodium Carbon Dioxide BUN Creatinine Glucose Calcium Magnesium 4.80 H 3.60 H ALT Total Protein Albumin Laboratory Results - last 24 hr 08/10/20 17:25 Urine Color Yellow Urine Turbidity Clear Urine pH 7.0 Ur Specific [place] 1.010 Urine Protein <15 mg/dl Urine Glucose (UA) Neg Urine Ketones Neg Urine Blood Neg Urine Nitrite Neg Urine Bilirubin Neg Urine Urobilinogen < 2.0 Ur Leukocyte Esterase Neg Urine WBC (Auto) < 1.0 Urine RBC (Auto) 1.0 U Epithel Cells (Auto) 1.0 Urine Mucus Few
[2020-08-11] MEDS ORDERED: BENZOCAINE/MENTHOL LOZENGE MM PRN (06:20)
[2020-08-11] MEDS: DOCUSATE SODIUM 100 MG CAP PO PRN (09:08)
[2020-08-11] MEDS: PRENATAL VIT27-FE FUMARATE-FOLIC ACID VIT TAB PO SCH (09:08)
[2020-08-11] MEDS: FAMOTIDINE 20 MG/2 ML INJ IV SCH ×2 (09:08→22:15)
[2020-08-11] MEDS: MAGIC MOUTHWASH 30ML PO PRN ×3 (09:13→22:15)
--- NOTE | 2020-08-11 15:25 | Progress Note ---
Assessment and Plan A: 1. IUP at 26 5/7 weeks gestation 2. 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 History of PTD x 2 Intrapartum demise 4. History of Pseudotumor cerebri Rec: 1. Continue to monitor for labor , ROM 2. Conitnue 17OHP injections 3. Continue inpatient observation , reevaluate cervical length/dilation at 28 weeks gestation to determine if she is a candidate for outpt management Subjective - Subjective Principal diagnosis: IUP @26w5d; labor; steriods complete Interval history: No complaints. Good movement. Denies pelvic pressure, contractions, leaking of fluid, and bleeding. Patient reports: movement normal, no new complaints, no loss of fluid, no vaginal bleeding, no contractions Objective - Vital Signs Vital Signs: Vital Signs - 12hr 08/11/20 08/11/20 08/11/20 03:20 03:25 03:30 Temperature Pulse Rate 89 85 83 Respiratory Rate Blood Pressure Blood Pressure [Left] O2 Sat by Pulse 98 97 95 Oximetry 08/11/20 08/11/20 08/11/20 03:35 03:40 03:45 Temperature Pulse Rate 86 82 85 Respiratory Rate Blood Pressure Blood Pressure [Left] O2 Sat by Pulse 96 96 94 Oximetry 08/11/20 08/11/20 08/11/20 03:50 03:55 03:59 Temperature Pulse Rate 81 80 91 H Respiratory Rate Blood Pressure Blood Pressure [Left] O2 Sat by Pulse 95 96 93 Oximetry 08/11/20 08/11/20 08/11/20 04:00 04:09 04:12 Temperature 98.2 F Pulse Rate 79 78 93 H Respiratory 16 Rate Blood Pressure 122/72 Blood Pressure [Left] O2 Sat by Pulse 94 98 Oximetry 08/11/20 08/11/20 08/11/20 04:17 04:22 04:27 Temperature Pulse Rate 83 80 84 Respiratory Rate Blood Pressure Blood Pressure [Left] O2 Sat by Pulse 99 98 98 Oximetry 08/11/20 08/11/20 08/11/20 04:32 04:37 04:42 Temperature Pulse Rate 78 98 H 81 Respiratory Rate Blood Pressure Blood Pressure [Left] O2 Sat by Pulse 98 98 98 Oximetry 08/11/20 08/11/20 08/11/20 04:47 04:52 04:57 Temperature Pulse Rate 72 82 81 Respiratory Rate Blood Pressure Blood Pressure [Left] O2 Sat by Pulse 98 97 98 Oximetry 08/11/20 08/11/20 08/11/20 05:02 05:07 05:12 Temperature Pulse Rate 79 83 83 Respiratory Rate Blood Pressure Blood Pressure [Left] O2 Sat by Pulse 98 97 98 Oximetry 08/11/20 08/11/20 08/11/20 05:17 05:22 05:27 Temperature Pulse Rate 83 76 74 Respiratory Rate Blood Pressure Blood Pressure [Left] O2 Sat by Pulse 96 97 97 Oximetry 08/11/20 08/11/20 08/11/20 05:32 05:36 05:37 Temperature Pulse Rate 79 71 74 Respiratory Rate Blood Pressure Blood Pressure [Left] O2 Sat by Pulse 96 94 95 Oximetry 08/11/20 08/11/20 08/11/20 05:42 05:44 05:47 Temperature Pulse Rate 84 71 76 Respiratory Rate Blood Pressure Blood Pressure [Left] O2 Sat by Pulse 96 94 97 Oximetry 08/11/20 08/11/20 08/11/20 05:49 05:52 05:56 Temperature Pulse Rate 79 84 85 Respiratory Rate Blood Pressure Blood Pressure [Left] O2 Sat by Pulse 94 93 94 Oximetry 08/11/20 08/11/20 08/11/20 05:57 06:02 06:07 Temperature Pulse Rate 80 82 78 Respiratory Rate Blood Pressure Blood Pressure [Left] O2 Sat by Pulse 94 94 94 Oximetry 08/11/20 08/11/20 08/11/20 06:12 06:14 06:17 Temperature Pulse Rate 79 77 78 Respiratory Rate Blood Pressure Blood Pressure [Left] O2 Sat by Pulse 93 94 95 Oximetry 08/11/20 08/11/20 08/11/20 06:43 06:44 09:16 Temperature 97.9 F Pulse Rate 84 87 83 Respiratory 16 Rate Blood Pressure 102/56 117/63 Blood Pressure 102/56 [Left] O2 Sat by Pulse 97 97 Oximetry 08/11/20 08/11/20 08/11/20 11:19 11:20 11:25 Temperature 98.5 F Pulse Rate 103 H 108 H 103 H Respiratory Rate Blood Pressure 115/59 Blood Pressure [Left] O2 Sat by Pulse 96 97 Oximetry 08/11/20 08/11/20 08/11/20 11:30 11:35 11:40 Temperature Pulse Rate 99 H 95 H 98 H Respiratory Rate Blood Pressure Blood Pressure [Left] O2 Sat by Pulse 97 98 98 Oximetry 08/11/20 08/11/20 08/11/20 11:45 11:50 11:55 Temperature Pulse Rate 96 H 101 H 109 H Respiratory Rate Blood Pressure Blood Pressure [Left] O2 Sat by Pulse 97 99 99 Oximetry 08/11/20 08/11/20 08/11/20 12:00 12:05 12:10 Temperature Pulse Rate 104 H 104 H 108 H Respiratory Rate Blood Pressure Blood Pressure [Left] O2 Sat by Pulse 99 99 99 Oximetry 08/11/20 08/11/20 08/11/20 12:15 12:20 12:30 Temperature Pulse Rate 107 H 108 H 99 H Respiratory Rate Blood Pressure Blood Pressure [Left] O2 Sat by Pulse 99 99 100 Oximetry 08/11/20 08/11/20 08/11/20 12:35 12:40 12:45 Temperature Pulse Rate 94 H 87 89 Respiratory Rate Blood Pressure Blood Pressure [Left] O2 Sat by Pulse 99 100 100 Oximetry 08/11/20 08/11/20 08/11/20 12:50 12:55 13:00 Temperature Pulse Rate 91 H 92 H 83 Respiratory Rate Blood Pressure Blood Pressure [Left] O2 Sat by Pulse 99 99 98 Oximetry 08/11/20 08/11/20 08/11/20 13:04 13:05 13:10 Temperature Pulse Rate 91 H 83 88 Respiratory Rate Blood Pressure Blood Pressure [Left] O2 Sat by Pulse 94 93 97 Oximetry 08/11/20 08/11/20 08/11/20 13:15 13:20 13:23 Temperature Pulse Rate 93 H 83 86 Respiratory Rate Blood Pressure Blood Pressure [Left] O2 Sat by Pulse 96 96 94 Oximetry 08/11/20 08/11/20 08/11/20 13:25 13:29 13:30 Temperature Pulse Rate 83 87 84 Respiratory Rate Blood Pressure Blood Pressure [Left] O2 Sat by Pulse 95 94 94 Oximetry 08/11/20 08/11/20 08/11/20 13:35 13:40 13:42 Temperature Pulse Rate 83 85 72 Respiratory Rate Blood Pressure Blood Pressure [Left] O2 Sat by Pulse 94 96 93 Oximetry 08/11/20 08/11/20 08/11/20 13:45 13:48 13:50 Temperature Pulse Rate 95 H 94 H 84 Respiratory Rate Blood Pressure Blood Pressure [Left] O2 Sat by Pulse 96 93 95 Oximetry 08/11/20 08/11/20 13:55 13:57 Temperature Pulse Rate 86 85 Respiratory Rate Blood Pressure Blood Pressure [Left] O2 Sat by Pulse 95 94 Oximetry - Exam Abdomen: Present: soft - Labs Labs: Abnormal Labs 08/07/20 08/07/20 08/08/20 13:39 18:35 01:02 RDW 13.1 L Seg Neutrophils % 72.8 H Sodium Carbon Dioxide BUN Creatinine Glucose Calcium Magnesium 4.10 H 5.00 H ALT Total Protein Albumin 08/08/20 08/08/20 08/08/20 13:04 17:26 17:26 RDW Seg Neutrophils % Sodium 134 L Carbon Dioxide 17 L BUN 3 L Creatinine 0.5 L Glucose 145 H Calcium 7.2 L Magnesium 5.50 H 5.50 H ALT < 5 L Total Protein 6.1 L Albumin 3.8 L 08/09/20 08/09/20 08/09/20 00:31 07:32 12:24 RDW Seg Neutrophils % Sodium Carbon Dioxide BUN Creatinine Glucose Calcium Magnesium 5.50 H 5.30 H 5.50 H ALT Total Protein Albumin 08/09/20 08/10/20 18:08 01:07 RDW Seg Neutrophils % Sodium Carbon Dioxide BUN Creatinine Glucose Calcium Magnesium 4.80 H 3.60 H ALT Total Protein Albumin Laboratory Results - last 24 hr 08/10/20 17:25 Urine Color Yellow Urine Turbidity Clear Urine pH 7.0 Ur Specific [place] 1.010 Urine Protein <15 mg/dl Urine Glucose (UA) Neg Urine Ketones Neg Urine Blood Neg Urine Nitrite Neg Urine Bilirubin Neg Urine Urobilinogen < 2.0 Ur Leukocyte Esterase Neg Urine WBC (Auto) < 1.0 Urine RBC (Auto) 1.0 U Epithel Cells (Auto) 1.0 Urine Mucus Few
--- NOTE | 2020-08-12 08:49 | Progress Note ---
Assessment and Plan - Patient Problems (1) labor in second trimester Current Visit: Yes Status: Acute Qualifiers: Fetus number: single or unspecified fetus Subjective - Subjective Principal diagnosis: IUP @26w5d; labor; steriods complete Interval history: Pt is without complaints today, in good spirits, and reports no needs at this time. Continue current POC. Patient reports: movement normal, no new complaints, no loss of fluid, no vaginal bleeding, no contractions Objective - Vital Signs Vital Signs: Vital Signs - 12hr 08/12/20 00:14 Temperature 98.4 F Pulse Rate 98 H Respiratory 16 Rate Blood Pressure 119/67 - Exam Lungs: Normal air movement Abdomen: Present: normal appearance, soft Uterus: Present: normal FHR: auscultation normal, category 1 Uterine Contraction Monitor Mode: External Uterine Contraction Pattern: Absent Uterine Tone Measurement Phase: Resting - Labs Labs: Abnormal Labs 08/07/20 08/07/20 08/08/20 13:39 18:35 01:02 RDW 13.1 L Seg Neutrophils % 72.8 H Sodium Carbon Dioxide BUN Creatinine Glucose Calcium Magnesium 4.10 H 5.00 H ALT Total Protein Albumin 08/08/20 08/08/20 08/08/20 13:04 17:26 17:26 RDW Seg Neutrophils % Sodium 134 L Carbon Dioxide 17 L BUN 3 L Creatinine 0.5 L Glucose 145 H Calcium 7.2 L Magnesium 5.50 H 5.50 H ALT < 5 L Total Protein 6.1 L Albumin 3.8 L 08/09/20 08/09/20 08/09/20 00:31 07:32 12:24 RDW Seg Neutrophils % Sodium Carbon Dioxide BUN Creatinine Glucose Calcium Magnesium 5.50 H 5.30 H 5.50 H ALT Total Protein Albumin 08/09/20 08/10/20 18:08 01:07 RDW Seg Neutrophils % Sodium Carbon Dioxide BUN Creatinine Glucose Calcium Magnesium 4.80 H 3.60 H ALT Total Protein Albumin
[2020-08-12] MEDS: PRENATAL VIT27-FE FUMARATE-FOLIC ACID VIT TAB PO SCH (14:04)
[2020-08-12] MEDS: FAMOTIDINE 20 MG/2 ML INJ IV SCH ×2 (14:05→22:20)
--- NOTE | 2020-08-12 16:51 | Progress Note ---
Assessment and Plan A: 1. IUP at 26 6/7 weeks gestation s/p BMZ 2. 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 History of PTD x 2 Intrapartum demise 4. History of Pseudotumor cerebri Rec: 1. Continue to monitor for labor , ROM 2. Conitnue 17OHP injections q wednesday 3. Continue inpatient observation , reevaluate cervical length/dilation at 28 weeks gestation to determine if she is a candidate for outpt management Subjective - Subjective Date of service: 08/12/20 Principal diagnosis: IUP @26w6d; labor; steriods complete Patient reports: movement normal, no new complaints, no loss of fluid, no vaginal bleeding, no contractions Objective - Vital Signs Vital Signs: Vital Signs - 12hr 08/12/20 08/12/20 08:00 14:38 Temperature 98.1 F Pulse Rate 81 Respiratory 18 Rate Blood Pressure 119/70 - Exam Narrative Exam: no complaints , laying in bed Abdomen: Present: normal appearance, soft FHR: category 1 Uterine Contraction Monitor Mode: External (no palpable contractions) - Labs Labs: Abnormal Labs 08/07/20 08/07/20 08/08/20 13:39 18:35 01:02 RDW 13.1 L Seg Neutrophils % 72.8 H Sodium Carbon Dioxide BUN Creatinine Glucose Calcium Magnesium 4.10 H 5.00 H ALT Total Protein Albumin 08/08/20 08/08/20 08/08/20 13:04 17:26 17:26 RDW Seg Neutrophils % Sodium 134 L Carbon Dioxide 17 L BUN 3 L Creatinine 0.5 L Glucose 145 H Calcium 7.2 L Magnesium 5.50 H 5.50 H ALT < 5 L Total Protein 6.1 L Albumin 3.8 L 08/09/20 08/09/20 08/09/20 00:31 07:32 12:24 RDW Seg Neutrophils % Sodium Carbon Dioxide BUN Creatinine Glucose Calcium Magnesium 5.50 H 5.30 H 5.50 H ALT Total Protein Albumin 08/09/20 08/10/20 18:08 01:07 RDW Seg Neutrophils % Sodium Carbon Dioxide BUN Creatinine Glucose Calcium Magnesium 4.80 H 3.60 H ALT Total Protein Albumin
--- NOTE | 2020-08-13 05:56 | Progress Note ---
<BLAKE ISAAC - Last Filed: 08/13/20 05:46> Assessment and Plan - Patient Problems (1) 26 weeks gestation of Onset Date: ~08/10/20 Current Visit: Yes Status: Acute Plan to address problem: Pt resting No c/o voiced VSS Cat 1 strip IUP 26w6d short cervix P: Will consult with Dr Erwin FERGUSON recommendations: 1. Continue to monitor for labor , ROM 2. Conitnue 17OHP injections 3. Continue inpatient observation , reevaluate cervical length/dilation at 28 weeks gestation to determine if she is a candidate for out pt management (2) Abnormal glucose tolerance test (GTT) during , antepartum Onset Date: ~08/10/20 Current Visit: Yes Status: Acute Plan to address problem: 3h GTT sherine for 08/14/20 Pt aware to be NPO after MN Subjective - Subjective Date of service: 08/13/20 (pt resting) Principal diagnosis: IUP @26w6d; labor; steriods complete Patient reports: movement normal, no new complaints, no loss of fluid, no vaginal bleeding, no contractions Objective - Vital Signs Vital Signs: Vital Signs - 12hr 08/12/20 08/12/20 08/13/20 19:06 20:36 03:10 Temperature 98.7 F 98.4 F Pulse Rate 98 H 98 H 109 H Respiratory 18 16 Rate Blood Pressure 130/73 102/54 Blood Pressure 130/73 102/54 [Left] - Exam Breasts: deferred Cardiovascular: Regular rate Lungs: Normal air movement Abdomen: Present: normal appearance, soft. Absent: distention, tenderness Uterus: Present: normal FHR: auscultation normal, category 1 (for 26+w) Uterine Contraction Monitor Mode: External Uterine Contraction Pattern: Absent Extremities: normal Deep Tendon Reflex Grade: Normal +2 - Labs Labs: Abnormal Labs 08/07/20 08/07/20 08/08/20 13:39 18:35 01:02 RDW 13.1 L Seg Neutrophils % 72.8 H Sodium Carbon Dioxide BUN Creatinine Glucose Calcium Magnesium 4.10 H 5.00 H ALT Total Protein Albumin 08/08/20 08/08/20 08/08/20 13:04 17:26 17:26 RDW Seg Neutrophils % Sodium 134 L Carbon Dioxide 17 L BUN 3 L Creatinine 0.5 L Glucose 145 H Calcium 7.2 L Magnesium 5.50 H 5.50 H ALT < 5 L Total Protein 6.1 L Albumin 3.8 L 08/09/20 08/09/20 08/09/20 00:31 07:32 12:24 RDW Seg Neutrophils % Sodium Carbon Dioxide BUN Creatinine Glucose Calcium Magnesium 5.50 H 5.30 H 5.50 H ALT Total Protein Albumin 08/09/20 08/10/20 18:08 01:07 RDW Seg Neutrophils % Sodium Carbon Dioxide BUN Creatinine Glucose Calcium Magnesium 4.80 H 3.60 H ALT Total Protein Albumin <[id number] D - Last Filed: 08/13/20 22:20> Assessment and Plan - Patient Problems (1) 27 weeks gestation of Current Visit: Yes Status: Acute (2) labor in second trimester Current Visit: Yes Status: Acute Qualifiers: Fetus number: single or unspecified fetus Plan to address problem: Steroids completed 08/08 (3) Abnormal glucose tolerance test (GTT) during , antepartum Onset Date: ~08/10/20 Current Visit: Yes Status: Acute Plan to address problem: 1h gtt performed 08/01 was 164. She received her last dose of dexamethasone 08/08, will schedule 3hgtt for 08/19. (4) Sickle cell trait Current Visit: Yes Status: Chronic Plan to address problem: Last UC performed 04/2020, she had a UTI that was treated however she did not RTO until 08/01. Urine Culture ordered (5) Pseudotumor cerebri Current Visit: Yes Status: Chronic Subjective - Subjective Principal diagnosis: IUP @27w 0/7d; labor; steriods complete Objective - Vital Signs Vital Signs: Vital Signs - 12hr 08/13/20 08/13/20 08/13/20 13:30 13:52 15:56 Temperature 98.8 F Pulse Rate 96 H 108 H Blood Pressure 118/68 119/73 08/13/20 08/13/20 08/13/20 17:43 17:49 19:06 Temperature 98.8 F Pulse Rate 107 H 101 H Blood Pressure 122/77 121/71 08/13/20 19:15 Temperature 98.7 F Pulse Rate Blood Pressure - Labs Labs: Abnormal Labs 08/07/20 08/07/20 08/08/20 13:39 18:35 01:02 RDW 13.1 L Seg Neutrophils % 72.8 H Sodium Carbon Dioxide BUN Creatinine Glucose Calcium Magnesium 4.10 H 5.00 H ALT Total Protein Albumin 08/08/20 08/08/20 08/08/20 13:04 17:26 17:26 RDW Seg Neutrophils % Sodium 134 L Carbon Dioxide 17 L BUN 3 L Creatinine 0.5 L Glucose 145 H Calcium 7.2 L Magnesium 5.50 H 5.50 H ALT < 5 L Total Protein 6.1 L Albumin 3.8 L 08/09/20 08/09/20 08/09/20 00:31 07:32 12:24 RDW Seg Neutrophils % Sodium Carbon Dioxide BUN Creatinine Glucose Calcium Magnesium 5.50 H 5.30 H 5.50 H ALT Total Protein Albumin 08/09/20 08/10/20 18:08 01:07 RDW Seg Neutrophils % Sodium Carbon Dioxide BUN Creatinine Glucose Calcium Magnesium 4.80 H 3.60 H ALT Total Protein Albumin
--- NOTE | 2020-08-13 06:38 | Event Note ---
Date: 08/13/20 (called by RN pt wants to leave today) Received call from RN that pt was crying wanting to go home. Came to room, pt and SO present RN present for conversation. Explained she is here so we can monitor her for any labor or changes. She is not home doing housework and trying to do more than bed rest. Explained that if baby was to deliver at this GA outside the hospital it would not survive. She voiced she understands. Pt agrees to be off monitor for now back on @ 0900, do AM care, and be allowed to go to [facility] via w/c. She will let the RN know what she will do stay or go by noon. Dr Hickman made aware. [facility] recommendation is cervical re-eval @ 28w for possible out pt care.
[2020-08-13] MEDS: MAGIC MOUTHWASH 30ML PO PRN (06:48)
[2020-08-13] MEDS: FAMOTIDINE 20 MG/2 ML INJ IV SCH (09:54)
[2020-08-13] MEDS: PRENATAL VIT27-FE FUMARATE-FOLIC ACID VIT TAB PO SCH (09:54)
--- NOTE | 2020-08-13 18:22 | Event Note ---
Date: 08/13/20 Resting in bed, no complaints. No change in plan of care. Questions encouraged and answered. She voiced understanding
--- NOTE | 2020-08-14 07:22 | Progress Note ---
Assessment and Plan patient resting, no complains. She has work letter for s/o. reviewed plan of care, all questions addressed. pt denies leaking, bleeding or ctx. she reports active FM. 1. IUP at 27+1 weeks gestation s/p BMZ 2. 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 History of PTD x 2 Intrapartum demise 4. History of Pseudotumor cerebri AMF Rec: 1. Continue to monitor for labor , ROM 2. Continue 17OHP injections q Wednesday 3. Continue inpatient observation, reevaluate cervical length/dilation at 28 weeks gestation to determine if she is a candidate for out pt management - Patient Problems (1) labor in second trimester Current Visit: Yes Status: Acute Qualifiers: Fetus number: single or unspecified fetus (2) Abnormal glucose tolerance test (GTT) during , antepartum Onset Date: ~08/10/20 Current Visit: Yes Status: Acute (3) Pseudotumor cerebri Current Visit: Yes Status: Chronic (4) 27 weeks gestation of Current Visit: Yes Status: Acute Subjective - Subjective Date of service: 08/14/20 Principal diagnosis: IUP @27w 1/7d; labor; steriods complete Interval history: EDC Confirmation: 11/12/2020 Past History : 3 Term Births: 0 Premature Births: 2 Living Children: 1 Para: 2 Mult. Births: 0 Prev : 0 Prev. attempt? 0 Aborta: 0 Elect. Ab: 0 Spont. 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 of genital herpes: no Partner hx. of genital herpes: no Rash, Viral, or Febrile illness since last LMP? no Varicella/Chicken Pox Status: Previous Disease Genetic History Congenital Heart Defect: Mom: no Dad: no Oziel Disease: Mom: no Dad: no Thalassemia Mom: no Dad: no Neural Tube Defect Mom: no Dad: no Down's Syndrome Mom: no Dad: no David-Sachs Mom: no Dad: no Sickle Cell Disease/Trait Mom: yes Dad: no Hemophilia Mom: no Dad: no Muscular Dystrophy Mom: no Dad: no Cystic Fibrosis Mom: no Dad: no Traci Chorea Mom: no Dad: no Mental Retardation Mom: no Dad: no Fragile X Mom: no Dad: no Other Genetic/Chromosomal Disorder Mom: no Dad: no Child w/other defect Mom: no Dad: no Enviromental Exposures Xray Exposure: no Medication, drug, or alcohol use since LMP: no Chemical/Other Exposure: no Exposure to Cat Liter: no Hx of Parvovirus (Fifth Disease): no Occupational Exposure to Children: none Current Allergies: No known allergies Patient reports: movement normal, no new complaints, no loss of fluid, no vaginal bleeding, no contractions Objective - Vital Signs Vital Signs: Vital Signs - 12hr 08/13/20 08/14/20 23:37 05:13 Temperature 98.1 F 98.0 F Pulse Rate 103 H 96 H Blood Pressure 120/67 109/54 - Exam Cardiovascular: Regular rate Lungs: Normal air movement Abdomen: Present: normal appearance, soft Vulva: both: normal Uterus: Present: normal, fundal height above umbilicus FHR: auscultation normal, category 1 Uterine Contraction Monitor Mode: External Uterine Contraction Pattern: Absent Uterine Tone Measurement Phase: Resting Extremities: normal Deep Tendon Reflex Grade: Normal +2 - Labs Labs: Abnormal Labs 08/07/20 08/07/20 08/08/20 13:39 18:35 01:02 RDW 13.1 L Seg Neutrophils % 72.8 H Sodium Carbon Dioxide BUN Creatinine Glucose Calcium Magnesium 4.10 H 5.00 H ALT Total Protein Albumin 08/08/20 08/08/20 08/08/20 13:04 17:26 17:26 RDW Seg Neutrophils % Sodium 134 L Carbon Dioxide 17 L BUN 3 L Creatinine 0.5 L Glucose 145 H Calcium 7.2 L Magnesium 5.50 H 5.50 H ALT < 5 L Total Protein 6.1 L Albumin 3.8 L 08/09/20 08/09/20 08/09/20 00:31 07:32 12:24 RDW Seg Neutrophils % Sodium Carbon Dioxide BUN Creatinine Glucose Calcium Magnesium 5.50 H 5.30 H 5.50 H ALT Total Protein Albumin 08/09/20 08/10/20 18:08 01:07 RDW Seg Neutrophils % Sodium Carbon Dioxide BUN Creatinine Glucose Calcium Magnesium 4.80 H 3.60 H ALT Total Protein Albumin
[2020-08-14] MEDS: LACTATED RINGERS 500 ML IV SCH (09:58)
[2020-08-14] MEDS: PRENATAL VIT27-FE FUMARATE-FOLIC ACID VIT TAB PO SCH (09:58)
[2020-08-14] MEDS: FAMOTIDINE 20 MG TAB PO SCH ×2 (09:58→22:09)
--- NOTE | 2020-08-15 08:01 | Progress Note ---
Assessment and Plan A: 1. IUP at 27 2/7 weeks gestation s/p BMZ 2. 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 History of PTD x 2 Intrapartum demise 4. History of Pseudotumor cerebri Rec: 1. Continue to monitor for labor , ROM 2. Conitnue 17OHP injections q wednesday 3. Continue inpatient observation , reevaluate cervical length/dilation at 28 weeks gestation to determine if she is a candidate for outpt management Subjective - Subjective Date of service: 08/15/20 Principal diagnosis: IUP @27w 2/7d; labor; steriods complete Interval history: reports that she was prescribed mycelex for vaginal irritation Denied contractions, LOF or bleeding Patient reports: movement normal, no new complaints, no loss of fluid, no vaginal bleeding, no contractions Objective - Vital Signs Vital Signs: Vital Signs - 12hr 08/14/20 08/15/20 08/15/20 22:10 07:24 07:25 Temperature 98.9 F 98.4 F Pulse Rate 106 H 100 H 100 H Respiratory 16 16 Rate Blood Pressure 118/70 95/54 Blood Pressure 118/70 95/54 [Left] - Exam Narrative Exam: NAD laying in bed FHR: category 1 Uterine Contraction Pattern: Absent Extremities: normal - Labs Labs: Abnormal Labs 08/07/20 08/07/20 08/08/20 13:39 18:35 01:02 RDW 13.1 L Seg Neutrophils % 72.8 H Sodium Carbon Dioxide BUN Creatinine Glucose Calcium Magnesium 4.10 H 5.00 H ALT Total Protein Albumin 08/08/20 08/08/20 08/08/20 13:04 17:26 17:26 RDW Seg Neutrophils % Sodium 134 L Carbon Dioxide 17 L BUN 3 L Creatinine 0.5 L Glucose 145 H Calcium 7.2 L Magnesium 5.50 H 5.50 H ALT < 5 L Total Protein 6.1 L Albumin 3.8 L 08/09/20 08/09/20 08/09/20 00:31 07:32 12:24 RDW Seg Neutrophils % Sodium Carbon Dioxide BUN Creatinine Glucose Calcium Magnesium 5.50 H 5.30 H 5.50 H ALT Total Protein Albumin 08/09/20 08/10/20 18:08 01:07 RDW Seg Neutrophils % Sodium Carbon Dioxide BUN Creatinine Glucose Calcium Magnesium 4.80 H 3.60 H ALT Total Protein Albumin
--- NOTE | 2020-08-15 08:09 | Progress Note ---
Assessment and Plan Pt resting. Reports +FM. POC reviewed. All questions addressed. 1. IUP at 27+2 weeks gestation s/p BMZ 2. 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 History of PTD x 2 Intrapartum demise 4. History of Pseudotumor cerebri AMF Rec: 1. Continue to monitor for labor , ROM; may perform NST qshift 2. Continue 17OHP injections q Wednesday 3. Continue inpatient observation, reevaluate cervical length/dilation at 28 weeks gestation to determine if she is a candidate for out pt management - Patient Problems (1) labor in second trimester Current Visit: Yes Status: Acute Qualifiers: Fetus number: single or unspecified fetus (2) 27 weeks gestation of Current Visit: Yes Status: Acute (3) Abnormal glucose tolerance test (GTT) during , antepartum Onset Date: ~08/10/20 Current Visit: Yes Status: Acute Plan to address problem: 3hr GTT ordered for 08/19/20 (4) Pseudotumor cerebri Current Visit: Yes Status: Chronic (5) Sickle cell trait Current Visit: Yes Status: Chronic Subjective - Subjective Date of service: 08/15/20 Principal diagnosis: IUP @27w 2/7d; labor; steriods complete Patient reports: movement normal, no new complaints, no loss of fluid, no vaginal bleeding, no contractions Objective - Vital Signs Vital Signs: Vital Signs - 12hr 08/14/20 08/15/20 08/15/20 22:10 07:24 07:25 Temperature 98.9 F 98.4 F Pulse Rate 106 H 100 H 100 H Respiratory 16 16 Rate Blood Pressure 118/70 95/54 Blood Pressure 118/70 95/54 [Left] - Exam Cardiovascular: Regular rate Lungs: Normal air movement Abdomen: Present: soft Uterus: Present: normal FHR: auscultation normal, category 1 Uterine Contraction Monitor Mode: External Uterine Contraction Pattern: Absent Uterine Tone Measurement Phase: Resting - Labs Labs: Abnormal Labs 08/07/20 08/07/20 08/08/20 13:39 18:35 01:02 RDW 13.1 L Seg Neutrophils % 72.8 H Sodium Carbon Dioxide BUN Creatinine Glucose Calcium Magnesium 4.10 H 5.00 H ALT Total Protein Albumin 08/08/20 08/08/20 08/08/20 13:04 17:26 17:26 RDW Seg Neutrophils % Sodium 134 L Carbon Dioxide 17 L BUN 3 L Creatinine 0.5 L Glucose 145 H Calcium 7.2 L Magnesium 5.50 H 5.50 H ALT < 5 L Total Protein 6.1 L Albumin 3.8 L 08/09/20 08/09/20 08/09/20 00:31 07:32 12:24 RDW Seg Neutrophils % Sodium Carbon Dioxide BUN Creatinine Glucose Calcium Magnesium 5.50 H 5.30 H 5.50 H ALT Total Protein Albumin 08/09/20 08/10/20 18:08 01:07 RDW Seg Neutrophils % Sodium Carbon Dioxide BUN Creatinine Glucose Calcium Magnesium 4.80 H 3.60 H ALT Total Protein Albumin
[2020-08-15] MEDS: FAMOTIDINE 20 MG TAB PO SCH (09:33)
[2020-08-15] MEDS: PRENATAL VIT27-FE FUMARATE-FOLIC ACID VIT TAB PO SCH (09:33)
[2020-08-15] MEDS ORDERED: CLOTRIMAZOLE 1% VAG CREAM 45 GM VG SCH (10:00)
--- NOTE | 2020-08-15 17:42 | Electrocardiograph Report ---
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
--- NOTE | 2020-08-16 08:51 | Progress Note ---
Assessment and Plan A: 1. IUP at 27.3 weeks gestation s/p BMZ 2. 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 History of PTD x 2 Intrapartum demise 4. History of Pseudotumor cerebri 5. Failed 1 hr gtt. Rec: 1. Continue to monitor for labor , ROM 2. Conitnue 17OHP injections every Wednesday 3. Continue inpatient observation , reevaluate cervical length/dilation at 28 weeks gestation to determine if she is a candidate for outpt management 4. Cervical length scan ordered for 08/20 @ 28 weeks. 4. 3 hr gtt scheduled for 08/19. Subjective - Subjective Date of service: 08/16/20 (Pt doing well. ) Principal diagnosis: IUP @27w 3/7d; labor; steriods complete Patient reports: movement normal, no new complaints, no loss of fluid, no vaginal bleeding, no contractions Objective - Vital Signs Vital Signs: Vital Signs - 12hr 08/15/20 08/15/20 08/16/20 21:33 21:34 00:20 Temperature 98.7 F Pulse Rate 105 H Respiratory Rate Blood Pressure Blood Pressure [Left] O2 Sat by Pulse 79 L 96 Oximetry 08/16/20 08/16/20 08/16/20 00:21 05:06 07:28 Temperature Pulse Rate 118 H 96 H 112 H Respiratory Rate Blood Pressure 124/80 120/56 98/53 Blood Pressure [Left] O2 Sat by Pulse 95 Oximetry 08/16/20 07:29 Temperature 99.5 F Pulse Rate 100 H Respiratory 14 Rate Blood Pressure Blood Pressure 98/53 [Left] O2 Sat by Pulse 95 Oximetry - Exam Narrative Exam: Pt denies vaginal bleeding, LOF, ctxs. We discussed should any of these symptoms occur to let the RN know immediately. Pt verbalized understanding. Breasts: deferred Cardiovascular: Regular rate Lungs: Normal air movement Abdomen: Present: normal appearance, soft FHR: category 1 (No contractions noted.) Extremities: normal Deep Tendon Reflex Grade: Normal but brisk +3 - Labs Labs: Abnormal Labs 08/07/20 08/07/20 08/08/20 13:39 18:35 01:02 RDW 13.1 L Seg Neutrophils % 72.8 H Sodium Carbon Dioxide BUN Creatinine Glucose Calcium Magnesium 4.10 H 5.00 H ALT Total Protein Albumin 08/08/20 08/08/20 08/08/20 13:04 17:26 17:26 RDW Seg Neutrophils % Sodium 134 L Carbon Dioxide 17 L BUN 3 L Creatinine 0.5 L Glucose 145 H Calcium 7.2 L Magnesium 5.50 H 5.50 H ALT < 5 L Total Protein 6.1 L Albumin 3.8 L 08/09/20 08/09/20 08/09/20 00:31 07:32 12:24 RDW Seg Neutrophils % Sodium Carbon Dioxide BUN Creatinine Glucose Calcium Magnesium 5.50 H 5.30 H 5.50 H ALT Total Protein Albumin 08/09/20 08/10/20 18:08 01:07 RDW Seg Neutrophils % Sodium Carbon Dioxide BUN Creatinine Glucose Calcium Magnesium 4.80 H 3.60 H ALT Total Protein Albumin
[2020-08-16] MEDS: FAMOTIDINE 20 MG TAB PO SCH ×2 (09:20→23:29)
[2020-08-16] MEDS: DOCUSATE SODIUM 100 MG CAP PO PRN (09:21)
[2020-08-16] MEDS: PRENATAL VIT27-FE FUMARATE-FOLIC ACID VIT TAB PO SCH (09:21)
--- NOTE | 2020-08-16 13:32 | Event Note ---
Date: 08/16/20 (Pt with c/o chest pain and a left sided throbbing SANCHEZ.) Received call from RN regarding pt having chest pain and pressure. Upon enter room, but was laying on bed with all the lights off. States that the chest pain and pressure started about 20 minutes ago and is constant. She also states while she is having the chest pain her heart "feels like its racing". An EKG was ordered. Lung sounds clear to auscultation, heart sound normal at this time. Vital signs are as follows: 116/74, 100, 99% on room air. Consulted with Dr. Hood. Will order cardiology consult. Cardiology has been called to evaluate patient. Pt also has c/o a SANCHEZ. States that the SANCHEZ is throbbing in nature and is behind her left eye. States that the SANCHEZ is not "as bad as when I first found out about the pseudotumor. Will administer Tylenol for SANCHEZ relief and continue to monitor. Explained plan of care with patient: awaiting cardiology consult/recommendations, and Tylenol for SANCHEZ pain. She verbalized understanding.
[2020-08-16] MEDS: ACETAMINOPHEN 500 MG TAB PO PRN (15:22)
--- NOTE | 2020-08-16 18:49 | Electrocardiograph Report ---
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 Electronically Signed On 08-16-2020 18:49:19 EDT by Teo Bronson
[2020-08-16] MEDS: LACTATED RINGERS 500 ML IV SCH (19:07)
[2020-08-16] MEDS ORDERED: SIMETHICONE 80 MG CHEW TAB PO PRN (19:37)
[2020-08-16] MEDS ORDERED: ALUM-MAG HYDROXIDE-SIMETHICONE 200-200-20MG/5ML ORAL LIQD 30 ML PO PRN (19:38)
--- NOTE | 2020-08-16 19:46 | Progress Note ---
Assessment and Plan - Patient Problems (1) 27 weeks gestation of Current Visit: Yes Status: Acute (2) labor in second trimester Current Visit: Yes Status: Acute Qualifiers: Fetus number: single or unspecified fetus (3) Abnormal glucose tolerance test (GTT) during , antepartum Onset Date: ~08/10/20 Current Visit: Yes Status: Acute (4) Chest pain Current Visit: Yes Status: Acute Plan to address problem: S/w Jamarcus Paris who will review chart and make recommendations (5) Pseudotumor cerebri Current Visit: Yes Status: Chronic Plan to address problem: States throbbing in her eye is the usually symptom she experiences when she requires a lumbar tap to relieve pressure. Will proceed with neurology evaluation if symptoms recur. Plan of care discussed with patient she voiced understanding and agrees with plan. (6) Sickle cell trait Current Visit: Yes Status: Chronic Subjective - Subjective Date of service: 08/16/20 Principal diagnosis: IUP @27w 3/7d; labor; steriods complete Interval history: . Patient reports: new complaints (Complains of Chest pain and pressure with back pain and palpitations. States she pain is different from what she had on 08/14/2020. She denies SOB and throbbing in her eye has resolved. ), movem ent normal, no loss of fluid, no vaginal bleeding, no contractions Objective - Vital Signs Vital Signs: Vital Signs - 12hr 08/16/20 08/16/20 08/16/20 10:57 10:58 12:27 Temperature 98.3 F Pulse Rate 118 H 105 H 63 Respiratory 16 Rate Blood Pressure 102/54 Blood Pressure 102/54 [Left] O2 Sat by Pulse 98 94 87 Oximetry 08/16/20 08/16/20 08/16/20 12:28 12:30 12:32 Temperature Pulse Rate 102 H 99 H 96 H Respiratory 18 Rate Blood Pressure 126/76 Blood Pressure 126/76 [Left] O2 Sat by Pulse 100 99 Oximetry 08/16/20 08/16/20 08/16/20 12:37 12:39 12:42 Temperature Pulse Rate 101 H 96 H 95 H Respiratory Rate Blood Pressure 109/61 Blood Pressure [Left] O2 Sat by Pulse 97 97 Oximetry 08/16/20 08/16/20 08/16/20 12:43 12:47 12:51 Temperature Pulse Rate 95 H 107 H 108 H Respiratory Rate Blood Pressure 103/55 108/64 Blood Pressure [Left] O2 Sat by Pulse 97 Oximetry 08/16/20 08/16/20 08/16/20 12:52 12:54 12:57 Temperature Pulse Rate 115 H 101 H 104 H Respiratory Rate Blood Pressure 109/68 Blood Pressure [Left] O2 Sat by Pulse 98 98 Oximetry 08/16/20 08/16/20 08/16/20 12:58 13:01 13:02 Temperature Pulse Rate 102 H 99 H 106 H Respiratory Rate Blood Pressure 110/65 Blood Pressure [Left] O2 Sat by Pulse 94 98 Oximetry 08/16/20 08/16/20 08/16/20 13:03 13:07 13:10 Temperature Pulse Rate 103 H 96 H Respiratory Rate Blood Pressure 106/64 118/76 Blood Pressure [Left] O2 Sat by Pulse 99 Oximetry 08/16/20 08/16/20 08/16/20 13:12 13:17 13:22 Temperature Pulse Rate 98 H 93 H 91 H Respiratory Rate Blood Pressure Blood Pressure [Left] O2 Sat by Pulse 98 100 98 Oximetry 08/16/20 08/16/20 08/16/20 13:27 13:31 13:32 Temperature Pulse Rate 103 H 97 H 100 H Respiratory Rate Blood Pressure 116/70 Blood Pressure [Left] O2 Sat by Pulse 98 99 Oximetry 08/16/20 08/16/20 08/16/20 13:34 13:37 13:40 Temperature Pulse Rate 101 H 92 H 92 H Respiratory Rate Blood Pressure Blood Pressure [Left] O2 Sat by Pulse 94 97 94 Oximetry 08/16/20 08/16/20 08/16/20 13:42 13:47 13:52 Temperature Pulse Rate 94 H 104 H 96 H Respiratory Rate Blood Pressure 108/60 Blood Pressure [Left] O2 Sat by Pulse 96 97 99 Oximetry 08/16/20 08/16/20 08/16/20 13:57 14:02 14:07 Temperature Pulse Rate 95 H 111 H 104 H Respiratory Rate Blood Pressure Blood Pressure [Left] O2 Sat by Pulse 98 99 98 Oximetry 08/16/20 08/16/20 08/16/20 14:12 14:17 14:22 Temperature Pulse Rate 98 H 100 H 98 H Respiratory Rate Blood Pressure Blood Pressure [Left] O2 Sat by Pulse 99 97 100 Oximetry 08/16/20 08/16/20 08/16/20 14:27 14:31 14:32 Temperature Pulse Rate 98 H 95 H 88 Respiratory Rate Blood Pressure 113/70 Blood Pressure [Left] O2 Sat by Pulse 98 98 Oximetry 08/16/20 08/16/20 08/16/20 14:37 14:42 14:47 Temperature Pulse Rate 92 H 95 H 90 Respiratory Rate Blood Pressure Blood Pressure [Left] O2 Sat by Pulse 97 96 97 Oximetry 08/16/20 08/16/20 08/16/20 14:52 14:57 15:02 Temperature Pulse Rate 89 92 H 95 H Respiratory Rate Blood Pressure 150/86 Blood Pressure [Left] O2 Sat by Pulse 98 98 98 Oximetry 08/16/20 08/16/20 08/16/20 15:07 15:11 15:12 Temperature Pulse Rate 103 H 101 H 105 H Respiratory Rate Blood Pressure 114/61 Blood Pressure [Left] O2 Sat by Pulse 98 98 Oximetry 08/16/20 08/16/20 08/16/20 15:17 15:21 15:22 Temperature 98.3 F Pulse Rate 91 H 94 H 96 H Respiratory 14 Rate Blood Pressure 106/62 Blood Pressure 106/62 [Left] O2 Sat by Pulse 98 99 Oximetry 08/16/20 08/16/20 08/16/20 18:29 18:30 18:49 Temperature 98.1 F Pulse Rate 120 H 110 H 110 H Respiratory 16 Rate Blood Pressure 98/51 84/50 Blood Pressure 98/51 [Left] O2 Sat by Pulse 91 94 Oximetry 08/16/20 08/16/20 08/16/20 18:50 18:53 18:58 Temperature Pulse Rate 105 H 112 H 125 H Respiratory Rate Blood Pressure 89/51 Blood Pressure [Left] O2 Sat by Pulse 96 95 Oximetry 08/16/20 08/16/20 08/16/20 19:03 19:04 19:07 Temperature 98.7 F Pulse Rate 107 H 109 H Respiratory 22 Rate Blood Pressure 116/57 Blood Pressure [Left] O2 Sat by Pulse 96 Oximetry 08/16/20 08/16/20 08/16/20 19:08 19:13 19:18 Temperature Pulse Rate 113 H 109 H 116 H Respiratory Rate Blood Pressure Blood Pressure [Left] O2 Sat by Pulse 98 98 98 Oximetry 08/16/20 08/16/20 08/16/20 19:22 19:23 19:28 Temperature Pulse Rate 115 H 119 H 113 H Respiratory Rate Blood Pressure 93/50 Blood Pressure [Left] O2 Sat by Pulse 95 96 Oximetry 08/16/20 08/16/20 08/16/20 19:33 19:37 19:38 Temperature Pulse Rate 114 H 116 H 117 H Respiratory Rate Blood Pressure 99/56 Blood Pressure [Left] O2 Sat by Pulse 97 94 94 Oximetry 08/16/20 19:43 Temperature Pulse Rate 116 H Respiratory Rate Blood Pressure Blood Pressure [Left] O2 Sat by Pulse 98 Oximetry - Labs Labs: Abnormal Labs 08/07/20 08/07/20 08/08/20 13:39 18:35 01:02 RDW 13.1 L Seg Neutrophils % 72.8 H Sodium Carbon Dioxide BUN Creatinine Glucose Calcium Magnesium 4.10 H 5.00 H ALT Total Protein Albumin 08/08/20 08/08/20 08/08/20 13:04 17:26 17:26 RDW Seg Neutrophils % Sodium 134 L Carbon Dioxide 17 L BUN 3 L Creatinine 0.5 L Glucose 145 H Calcium 7.2 L Magnesium 5.50 H 5.50 H ALT < 5 L Total Protein 6.1 L Albumin 3.8 L 08/09/20 08/09/20 08/09/20 00:31 07:32 12:24 RDW Seg Neutrophils % Sodium Carbon Dioxide BUN Creatinine Glucose Calcium Magnesium 5.50 H 5.30 H 5.50 H ALT Total Protein Albumin 08/09/20 08/10/20 18:08 01:07 RDW Seg Neutrophils % Sodium Carbon Dioxide BUN Creatinine Glucose Calcium Magnesium 4.80 H 3.60 H ALT Total Protein Albumin
[2020-08-16] MEDS ORDERED: LACTATED RINGERS 500 ML IV SCH (20:00)
--- NOTE | 2020-08-16 23:03 | Event Note ---
Date: 08/16/20 (Plan of Care) Received a call from RN regarding patient. Ms. Pineda was upset because she felt that she was not being taken care of. Spoke with patient via phone. Reassured patient that a cardiac consult was placed, additional test were ordered, and the investigation officer had reviewed all test that have resulted so far. We also discussed the plan of care for the night and AM. Additional test were ordered including an echo and additional EKG. Also reassured her that the RN, myself, Dr. Hood, and the investigation officer were watching her vital signs, test results closely. Pt verbalized understanding and states that she felt more comfortable after our conversation. All questions, concerns addressed, and patient stated that she had not further needs.
[2020-08-16] MEDS: diphenhydrAMINE 25 MG CAP PO PRN (23:30)
--- NOTE | 2020-08-17 03:03 | Cat Scan Report ---
CTA CHEST WITH CONTRAST INDICATION / CLINICAL INFORMATION: Chest pain/pressure. R/o PE. TECHNIQUE: Axial CT images were obtained through the chest after injection of Omnipaque 350, 75 cc IV contrast. 3 plane MIP and/or 3D reconstructions were produced. All CT scans at this location are per formed using CT dose reduction for ALARA by means of automated exposure control. COMPARISON: None available. FINDINGS: PULMONARY ARTERIES: No pulmonary emboli. THORACIC AORTA: No significant abnormality. HEART: No significant abnormality. CORONARY ARTERY CALCIFICATION: None. MEDIASTINUM / TOD: No significant abnormality. PLEURA: No pleural effusion. No pneumothorax. LUNGS: No acute air space or interstitial disease. ADDITIONAL FINDINGS: None. UPPER ABDOMEN: No acute findings. SKELETAL STRUCTURES: No significant osseous abnormality. IMPRESSION: 1. No CT evidence for pulmonary embolism. 2. Negative for pneumonia. Signer Name: Jack Malone MD Signed: 08/17/2020 2:59 AM Workstation Name: [id number]
[2020-08-17 07:34] LABS: Albumin 3.3 g/dL (3.9-5); Blood Urea Nitrogen 8 mg/dL (7-17); Calcium 9.3 mg/dL (8.4-10.2); Hemolysis Index 11
[2020-08-17 07:56] LABS: Alanine Aminotransferase < 5 units/L (7-56); BUN/Creatinine Ratio 16
[2020-08-17] MEDS: PRENATAL VIT27-FE FUMARATE-FOLIC ACID VIT TAB PO SCH (10:11)
[2020-08-17] MEDS: FAMOTIDINE 20 MG TAB PO SCH (10:11)
--- NOTE | 2020-08-17 11:48 | Progress Note ---
Assessment and Plan patient resting, no complains. She has work letter for s/o. reviewed plan of care, all questions addressed. pt denies leaking, bleeding or ctx. she reports active FM. 1. IUP at 27+4 weeks gestation s/p BMZ 2. 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 History of PTD x 2 Intrapartum demise 4. History of Pseudotumor cerebri [facility] Rec: 1. Continue to monitor for labor , ROM 2. Continue 17OHP injections q Wednesday 3. Continue inpatient observation, reevaluate cervical length/dilation at 28 weeks gestation to determine if she is a candidate for out pt management - Patient Problems (1) labor in second trimester Current Visit: Yes Status: Acute Qualifiers: Fetus number: single or unspecified fetus (2) Abnormal glucose tolerance test (GTT) during , antepartum Onset Date: ~08/10/20 Current Visit: Yes Status: Acute Plan to address problem: 3hGTT ordered for 08/19 (3) Pseudotumor cerebri Current Visit: Yes Status: Chronic (4) 27 weeks gestation of Current Visit: Yes Status: Acute (5) Chest pain Current Visit: Yes Status: Acute Qualifiers: Chest pain type: unspecified Qualified Code(s): R07.9 - Chest pain, unspecified Plan to address problem: CT scan neg pneumonia and PE ECHO done, waiting on results. Pt currently doesn't have any chest pain, states " I think it's just my anxiety" (6) Anxiety Current Visit: Yes Status: Acute Plan to address problem: pt would like to start zoloft for anxiety She states she was on a medication in 2013 but she does not know what it was. Subjective - Subjective Date of service: 08/17/20 Principal diagnosis: IUP @27w 4/7d; labor; steriods complete Interval history: EDC Confirmation: 11/12/2020 Past History : 3 Term Births: 0 Premature Births: 2 Living Children: 1 Para: 2 Mult. Births: 0 Prev : 0 Prev. attempt? 0 Aborta: 0 Elect. Ab: 0 Spont. 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 of genital herpes: no Partner hx. of genital herpes: no Rash, Viral, or Febrile illness since last LMP? no Varicella/Chicken Pox Status: Previous Disease Genetic History Congenital Heart Defect: Mom: no Dad: no Oziel Disease: Mom: no Dad: no Thalassemia Mom: no Dad: no Neural Tube Defect Mom: no Dad: no Down's Syndrome Mom: no Dad: no David-Sachs Mom: no Dad: no Sickle Cell Disease/Trait Mom: yes Dad: no Hemophilia Mom: no Dad: no Muscular Dystrophy Mom: no Dad: no Cystic Fibrosis Mom: no Dad: no [place] Chorea Mom: no Dad: no Mental Retardation Mom: no Dad: no Fragile X Mom: no Dad: no Other Genetic/Chromosomal Disorder Mom: no Dad: no Child w/other defect Mom: no Dad: no Enviromental Exposures Xray Exposure: no Medication, drug, or alcohol use since LMP: no Chemical/Other Exposure: no Exposure to Cat Liter: no Hx of Parvovirus (Fifth Disease): no Occupational Exposure to Children: none Current Allergies: No known allergies Patient reports: new complaints (no chest pain), movement normal, no loss of fluid, no vaginal bleeding, no contractions Objective - Vital Signs Vital Signs: Vital Signs - 12hr 08/16/20 08/16/20 08/17/20 23:52 23:57 00:02 Pulse Rate 111 H 101 H 126 H Blood Pressure O2 Sat by Pulse 99 99 99 Oximetry 08/17/20 08/17/20 08/17/20 00:07 00:09 00:12 Pulse Rate 116 H 106 H Blood Pressure 105/77 O2 Sat by Pulse 99 100 Oximetry 08/17/20 08/17/20 08/17/20 00:17 00:22 00:27 Pulse Rate 113 H 123 H 108 H Blood Pressure O2 Sat by Pulse 100 99 100 Oximetry 08/17/20 08/17/20 08/17/20 00:32 00:37 00:42 Pulse Rate 110 H 104 H 110 H Blood Pressure O2 Sat by Pulse 100 100 98 Oximetry 08/17/20 08/17/20 08/17/20 00:47 00:52 01:01 Pulse Rate 111 H 110 H 108 H Blood Pressure O2 Sat by Pulse 99 99 97 Oximetry 08/17/20 08/17/20 08/17/20 01:06 01:09 01:11 Pulse Rate 109 H 104 H 102 H Blood Pressure 109/63 O2 Sat by Pulse 99 99 Oximetry 08/17/20 08/17/20 08/17/20 01:16 01:21 01:26 Pulse Rate 105 H 118 H 117 H Blood Pressure O2 Sat by Pulse 99 99 98 Oximetry 08/17/20 08/17/20 08/17/20 01:31 01:36 01:41 Pulse Rate 120 H 117 H 107 H Blood Pressure O2 Sat by Pulse 98 96 100 Oximetry 08/17/20 08/17/20 08/17/20 02:45 02:48 02:50 Pulse Rate 92 H 99 H 110 H Blood Pressure 118/65 O2 Sat by Pulse 92 98 Oximetry 08/17/20 08/17/20 08/17/20 02:55 03:00 03:08 Pulse Rate 107 H 122 H 107 H Blood Pressure O2 Sat by Pulse 98 99 100 Oximetry 08/17/20 08/17/20 08/17/20 03:09 03:13 03:18 Pulse Rate 106 H 100 H 102 H Blood Pressure O2 Sat by Pulse 99 98 Oximetry 08/17/20 08/17/20 08/17/20 03:23 03:28 03:33 Pulse Rate 106 H 114 H 107 H Blood Pressure O2 Sat by Pulse 97 97 97 Oximetry 08/17/20 08/17/20 08/17/20 03:38 03:43 03:48 Pulse Rate 104 H 108 H 107 H Blood Pressure O2 Sat by Pulse 97 96 97 Oximetry 08/17/20 08/17/20 08/17/20 03:53 03:58 03:59 Pulse Rate 111 H 109 H 104 H Blood Pressure O2 Sat by Pulse 96 96 94 Oximetry 08/17/20 08/17/20 08/17/20 04:03 04:07 04:08 Pulse Rate 118 H 113 H 108 H Blood Pressure O2 Sat by Pulse 94 93 99 Oximetry 08/17/20 08/17/20 08/17/20 04:09 04:13 04:18 Pulse Rate 107 H 109 H 111 H Blood Pressure 103/59 O2 Sat by Pulse 95 96 Oximetry 08/17/20 08/17/20 08/17/20 04:23 04:25 04:28 Pulse Rate 110 H 107 H 124 H Blood Pressure O2 Sat by Pulse 96 94 95 Oximetry 08/17/20 08/17/20 08/17/20 04:35 04:40 04:45 Pulse Rate 125 H 113 H 103 H Blood Pressure O2 Sat by Pulse 99 97 96 Oximetry 08/17/20 08/17/20 08/17/20 04:50 04:55 05:00 Pulse Rate 110 H 129 H 122 H Blood Pressure O2 Sat by Pulse 97 98 98 Oximetry 08/17/20 08/17/20 08/17/20 05:05 05:09 05:10 Pulse Rate 115 H 122 H 128 H Blood Pressure 92/55 O2 Sat by Pulse 97 98 Oximetry 08/17/20 08/17/20 08/17/20 05:15 05:20 05:25 Pulse Rate 122 H 116 H 131 H Blood Pressure O2 Sat by Pulse 97 97 97 Oximetry 08/17/20 08/17/20 08/17/20 05:30 05:35 05:40 Pulse Rate 109 H 112 H 111 H Blood Pressure O2 Sat by Pulse 97 97 98 Oximetry 08/17/20 08/17/20 08/17/20 05:45 05:50 05:55 Pulse Rate 111 H 108 H 104 H Blood Pressure O2 Sat by Pulse 97 96 97 Oximetry 08/17/20 08/17/20 08/17/20 06:00 06:04 06:05 Pulse Rate 100 H 110 H 105 H Blood Pressure O2 Sat by Pulse 97 94 100 Oximetry 08/17/20 08/17/20 08/17/20 06:09 06:10 06:15 Pulse Rate 107 H 109 H 108 H Blood Pressure 95/53 O2 Sat by Pulse 100 100 Oximetry 08/17/20 08/17/20 08/17/20 06:20 06:25 06:30 Pulse Rate 108 H 109 H 110 H Blood Pressure O2 Sat by Pulse 100 99 99 Oximetry 08/17/20 08/17/20 08/17/20 06:37 06:39 06:42 Pulse Rate 108 H 116 H Blood Pressure O2 Sat by Pulse 97 94 99 Oximetry 08/17/20 08/17/20 08/17/20 06:47 06:52 06:57 Pulse Rate 107 H 107 H 105 H Blood Pressure O2 Sat by Pulse 97 98 97 Oximetry 08/17/20 08/17/20 08/17/20 07:02 07:07 07:12 Pulse Rate 107 H 104 H 100 H Blood Pressure O2 Sat by Pulse 98 99 98 Oximetry 08/17/20 08/17/20 08/17/20 07:17 07:22 07:27 Pulse Rate 107 H 109 H 117 H Blood Pressure O2 Sat by Pulse 98 98 98 Oximetry 08/17/20 08/17/20 08/17/20 07:35 07:40 07:45 Pulse Rate 106 H 111 H 110 H Blood Pressure 109/64 O2 Sat by Pulse 98 99 99 Oximetry 08/17/20 08/17/20 08/17/20 07:50 07:55 08:00 Pulse Rate 91 H 106 H 95 H Blood Pressure O2 Sat by Pulse 97 94 98 Oximetry 08/17/20 08/17/20 08/17/20 08:05 08:10 08:15 Pulse Rate 94 H 108 H 104 H Blood Pressure O2 Sat by Pulse 97 100 98 Oximetry 08/17/20 08/17/20 08/17/20 08:20 08:25 08:30 Pulse Rate 102 H 106 H 102 H Blood Pressure O2 Sat by Pulse 98 97 98 Oximetry 08/17/20 08/17/20 08/17/20 08:35 08:40 08:43 Pulse Rate 107 H 109 H 39 L Blood Pressure O2 Sat by Pulse 97 97 87 Oximetry 08/17/20 08/17/20 08/17/20 08:45 09:20 09:40 Pulse Rate 79 96 H Blood Pressure O2 Sat by Pulse 86 0 L 89 Oximetry 08/17/20 08/17/20 08/17/20 09:43 09:45 09:50 Pulse Rate 25 L 31 L Blood Pressure O2 Sat by Pulse 88 85 96 Oximetry 08/17/20 08/17/20 08/17/20 10:06 10:07 10:11 Pulse Rate 60 40 L Blood Pressure O2 Sat by Pulse 85 67 L 72 L Oximetry 08/17/20 08/17/20 08/17/20 10:16 10:17 10:35 Pulse Rate 96 H 88 Blood Pressure 108/64 O2 Sat by Pulse 61 L 98 Oximetry 08/17/20 08/17/20 08/17/20 10:40 10:45 10:50 Pulse Rate 94 H 99 H 103 H Blood Pressure O2 Sat by Pulse 97 98 98 Oximetry 08/17/20 08/17/20 08/17/20 10:55 11:00 11:05 Pulse Rate 101 H 106 H 103 H Blood Pressure O2 Sat by Pulse 99 98 97 Oximetry 08/17/20 08/17/20 08/17/20 11:09 11:10 11:15 Pulse Rate 104 H 98 H 101 H Blood Pressure 111/61 O2 Sat by Pulse 97 98 Oximetry 08/17/20 08/17/20 08/17/20 11:20 11:25 11:30 Pulse Rate 103 H 102 H 106 H Blood Pressure O2 Sat by Pulse 98 97 97 Oximetry - Exam Breasts: normal Cardiovascular: Regular rate Lungs: Clear to auscultation, Normal air movement Abdomen: Present: normal appearance, soft Uterus: Present: normal, fundal height above umbilicus FHR: auscultation normal Uterine Contraction Monitor Mode: External Uterine Contraction Pattern: Absent Uterine Tone Measurement Phase: Resting Extremities: normal Deep Tendon Reflex Grade: Normal +2 - Labs Labs: Abnormal Labs 08/07/20 08/07/20 08/08/20 13:39 18:35 01:02 RDW 13.1 L Seg Neutrophils % 72.8 H Sodium Carbon Dioxide BUN Creatinine Glucose Calcium Magnesium 4.10 H 5.00 H AST ALT Total Protein Albumin 08/08/20 08/08/20 08/08/20 13:04 17:26 17:26 RDW Seg Neutrophils % Sodium 134 L Carbon Dioxide 17 L BUN 3 L Creatinine 0.5 L Glucose 145 H Calcium 7.2 L Magnesium 5.50 H 5.50 H AST ALT < 5 L Total Protein 6.1 L Albumin 3.8 L 08/09/20 08/09/20 08/09/20 00:31 07:32 12:24 RDW Seg Neutrophils % Sodium Carbon Dioxide BUN Creatinine Glucose Calcium Magnesium 5.50 H 5.30 H 5.50 H AST ALT Total Protein Albumin 08/09/20 08/10/20 08/17/20 18:08 01:07 06:41 RDW Seg Neutrophils % Sodium 134 L Carbon Dioxide BUN Creatinine 0.5 L Glucose 211 H Calcium Magnesium 4.80 H 3.60 H AST < 5 L ALT < 5 L Total Protein Albumin 3.3 L Laboratory Results - last 24 hr 08/16/20 08/16/20 08/17/20 22:46 22:46 06:41 Sodium 134 L Potassium 4.2 Chloride 99.3 Carbon Dioxide 22 Anion Gap 17 BUN 8 Creatinine 0.5 L Estimated GFR > 60 BUN/Creatinine Ratio 16 Glucose 211 H Calcium 9.3 Total Bilirubin < 0.20 AST < 5 L ALT < 5 L Alkaline Phosphatase 65 Total Creatine Kinase 34 Troponin T < 0.010 < 0.010 Total Protein 6.6 Albumin 3.3 L Albumin/Globulin Ratio 1.0
--- NOTE | 2020-08-17 14:02 | Progress Note ---
Assessment and Plan A: 1. IUP at 27 4/7 weeks gestation s/p BMZ 2. 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 History of PTD x 2 Intrapartum demise 4. History of Pseudotumor cerebri 5. Chest pain , resolved Rec: 1. Continue to monitor for labor , ROM 2. Continue 17OHP injections q wednesday 3. Continue inpatient observation , reevaluate cervical length/dilation at 28 weeks gestation to determine if she is a candidate for outpt management 4. f/u on maternal echo results Subjective - Subjective Date of service: 08/17/20 Principal diagnosis: IUP @27w 4/7d; labor; steriods complete Interval history: Was evaluated for Chest pain, neg trop Echo read is pending She is currently asymptomatic and denies bleeding, contractions, LOF, increased vaginal pressure, abdominal pain, chest pain, palpitations or SOB Patient reports: new complaints (no chest pain), movement normal, no loss of fluid, no vaginal bleeding, no contractions Objective - Vital Signs Vital Signs: Vital Signs - 12hr 08/17/20 08/17/20 08/17/20 02:45 02:48 02:50 Temperature Pulse Rate 92 H 99 H 110 H Respiratory Rate Blood Pressure 118/65 Blood Pressure [Left] O2 Sat by Pulse 92 98 Oximetry 08/17/20 08/17/20 08/17/20 02:55 03:00 03:08 Temperature Pulse Rate 107 H 122 H 107 H Respiratory Rate Blood Pressure Blood Pressure [Left] O2 Sat by Pulse 98 99 100 Oximetry 08/17/20 08/17/20 08/17/20 03:09 03:13 03:18 Temperature Pulse Rate 106 H 100 H 102 H Respiratory Rate Blood Pressure Blood Pressure [Left] O2 Sat by Pulse 99 98 Oximetry 08/17/20 08/17/20 08/17/20 03:23 03:28 03:33 Temperature Pulse Rate 106 H 114 H 107 H Respiratory Rate Blood Pressure Blood Pressure [Left] O2 Sat by Pulse 97 97 97 Oximetry 08/17/20 08/17/20 08/17/20 03:38 03:43 03:48 Temperature Pulse Rate 104 H 108 H 107 H Respiratory Rate Blood Pressure Blood Pressure [Left] O2 Sat by Pulse 97 96 97 Oximetry 08/17/20 08/17/20 08/17/20 03:53 03:58 03:59 Temperature Pulse Rate 111 H 109 H 104 H Respiratory Rate Blood Pressure Blood Pressure [Left] O2 Sat by Pulse 96 96 94 Oximetry 08/17/20 08/17/20 08/17/20 04:03 04:07 04:08 Temperature Pulse Rate 118 H 113 H 108 H Respiratory Rate Blood Pressure Blood Pressure [Left] O2 Sat by Pulse 94 93 99 Oximetry 08/17/20 08/17/20 08/17/20 04:09 04:13 04:18 Temperature Pulse Rate 107 H 109 H 111 H Respiratory Rate Blood Pressure 103/59 Blood Pressure [Left] O2 Sat by Pulse 95 96 Oximetry 08/17/20 08/17/20 08/17/20 04:23 04:25 04:28 Temperature Pulse Rate 110 H 107 H 124 H Respiratory Rate Blood Pressure Blood Pressure [Left] O2 Sat by Pulse 96 94 95 Oximetry 08/17/20 08/17/20 08/17/20 04:35 04:40 04:45 Temperature Pulse Rate 125 H 113 H 103 H Respiratory Rate Blood Pressure Blood Pressure [Left] O2 Sat by Pulse 99 97 96 Oximetry 08/17/20 08/17/20 08/17/20 04:50 04:55 05:00 Temperature Pulse Rate 110 H 129 H 122 H Respiratory Rate Blood Pressure Blood Pressure [Left] O2 Sat by Pulse 97 98 98 Oximetry 08/17/20 08/17/20 08/17/20 05:05 05:09 05:10 Temperature Pulse Rate 115 H 122 H 128 H Respiratory Rate Blood Pressure 92/55 Blood Pressure [Left] O2 Sat by Pulse 97 98 Oximetry 08/17/20 08/17/20 08/17/20 05:15 05:20 05:25 Temperature Pulse Rate 122 H 116 H 131 H Respiratory Rate Blood Pressure Blood Pressure [Left] O2 Sat by Pulse 97 97 97 Oximetry 08/17/20 08/17/20 08/17/20 05:30 05:35 05:40 Temperature Pulse Rate 109 H 112 H 111 H Respiratory Rate Blood Pressure Blood Pressure [Left] O2 Sat by Pulse 97 97 98 Oximetry 08/17/20 08/17/20 08/17/20 05:45 05:50 05:55 Temperature Pulse Rate 111 H 108 H 104 H Respiratory Rate Blood Pressure Blood Pressure [Left] O2 Sat by Pulse 97 96 97 Oximetry 08/17/20 08/17/20 08/17/20 06:00 06:04 06:05 Temperature Pulse Rate 100 H 110 H 105 H Respiratory Rate Blood Pressure Blood Pressure [Left] O2 Sat by Pulse 97 94 100 Oximetry 08/17/20 08/17/20 08/17/20 06:09 06:10 06:15 Temperature Pulse Rate 107 H 109 H 108 H Respiratory Rate Blood Pressure 95/53 Blood Pressure [Left] O2 Sat by Pulse 100 100 Oximetry 08/17/20 08/17/20 08/17/20 06:20 06:25 06:30 Temperature Pulse Rate 108 H 109 H 110 H Respiratory Rate Blood Pressure Blood Pressure [Left] O2 Sat by Pulse 100 99 99 Oximetry 08/17/20 08/17/20 08/17/20 06:37 06:39 06:42 Temperature Pulse Rate 108 H 116 H Respiratory Rate Blood Pressure Blood Pressure [Left] O2 Sat by Pulse 97 94 99 Oximetry 08/17/20 08/17/20 08/17/20 06:47 06:52 06:57 Temperature Pulse Rate 107 H 107 H 105 H Respiratory Rate Blood Pressure Blood Pressure [Left] O2 Sat by Pulse 97 98 97 Oximetry 08/17/20 08/17/20 08/17/20 07:02 07:07 07:12 Temperature Pulse Rate 107 H 104 H 100 H Respiratory Rate Blood Pressure Blood Pressure [Left] O2 Sat by Pulse 98 99 98 Oximetry 08/17/20 08/17/20 08/17/20 07:17 07:22 07:27 Temperature Pulse Rate 107 H 109 H 117 H Respiratory Rate Blood Pressure Blood Pressure [Left] O2 Sat by Pulse 98 98 98 Oximetry 08/17/20 08/17/20 08/17/20 07:35 07:40 07:45 Temperature Pulse Rate 106 H 111 H 110 H Respiratory Rate Blood Pressure 109/64 Blood Pressure [Left] O2 Sat by Pulse 98 99 99 Oximetry 08/17/20 08/17/20 08/17/20 07:50 07:55 08:00 Temperature Pulse Rate 91 H 106 H 95 H Respiratory Rate Blood Pressure Blood Pressure [Left] O2 Sat by Pulse 97 94 98 Oximetry 08/17/20 08/17/20 08/17/20 08:05 08:10 08:15 Temperature Pulse Rate 94 H 108 H 104 H Respiratory Rate Blood Pressure Blood Pressure [Left] O2 Sat by Pulse 97 100 98 Oximetry 08/17/20 08/17/20 08/17/20 08:20 08:25 08:30 Temperature Pulse Rate 102 H 106 H 102 H Respiratory Rate Blood Pressure Blood Pressure [Left] O2 Sat by Pulse 98 97 98 Oximetry 08/17/20 08/17/20 08/17/20 08:35 08:40 08:43 Temperature Pulse Rate 107 H 109 H 39 L Respiratory Rate Blood Pressure Blood Pressure [Left] O2 Sat by Pulse 97 97 87 Oximetry 08/17/20 08/17/20 08/17/20 08:45 09:20 09:40 Temperature Pulse Rate 79 96 H Respiratory Rate Blood Pressure Blood Pressure [Left] O2 Sat by Pulse 86 0 L 89 Oximetry 08/17/20 08/17/20 08/17/20 09:43 09:45 09:50 Temperature Pulse Rate 25 L 31 L Respiratory Rate Blood Pressure Blood Pressure [Left] O2 Sat by Pulse 88 85 96 Oximetry 08/17/20 08/17/20 08/17/20 10:06 10:07 10:11 Temperature Pulse Rate 60 40 L Respiratory Rate Blood Pressure Blood Pressure [Left] O2 Sat by Pulse 85 67 L 72 L Oximetry 08/17/20 08/17/20 08/17/20 10:16 10:17 10:35 Temperature Pulse Rate 96 H 88 Respiratory Rate Blood Pressure 108/64 Blood Pressure [Left] O2 Sat by Pulse 61 L 98 Oximetry 08/17/20 08/17/20 08/17/20 10:40 10:45 10:50 Temperature Pulse Rate 94 H 99 H 103 H Respiratory Rate Blood Pressure Blood Pressure [Left] O2 Sat by Pulse 97 98 98 Oximetry 08/17/20 08/17/20 08/17/20 10:55 11:00 11:05 Temperature Pulse Rate 101 H 106 H 103 H Respiratory Rate Blood Pressure Blood Pressure [Left] O2 Sat by Pulse 99 98 97 Oximetry 08/17/20 08/17/20 08/17/20 11:09 11:10 11:15 Temperature Pulse Rate 104 H 98 H 101 H Respiratory Rate Blood Pressure 111/61 Blood Pressure [Left] O2 Sat by Pulse 97 98 Oximetry 08/17/20 08/17/20 08/17/20 11:20 11:25 11:30 Temperature Pulse Rate 103 H 102 H 106 H Respiratory Rate Blood Pressure Blood Pressure [Left] O2 Sat by Pulse 98 97 97 Oximetry 08/17/20 08/17/20 08/17/20 11:44 11:49 11:51 Temperature Pulse Rate 104 H 100 H Respiratory Rate Blood Pressure 109/66 Blood Pressure [Left] O2 Sat by Pulse 95 98 Oximetry 08/17/20 08/17/20 08/17/20 11:52 11:54 11:59 Temperature 98.0 F Pulse Rate 100 H 103 H 101 H Respiratory 16 Rate Blood Pressure Blood Pressure 109/66 [Left] O2 Sat by Pulse 99 98 98 Oximetry 08/17/20 08/17/20 08/17/20 12:04 12:09 12:14 Temperature Pulse Rate 99 H 100 H 109 H Respiratory Rate Blood Pressure 111/66 Blood Pressure [Left] O2 Sat by Pulse 98 100 98 Oximetry 08/17/20 08/17/20 08/17/20 12:19 12:24 12:29 Temperature Pulse Rate 100 H 104 H 95 H Respiratory Rate Blood Pressure Blood Pressure [Left] O2 Sat by Pulse 97 98 95 Oximetry 08/17/20 08/17/20 08/17/20 12:34 12:35 12:39 Temperature Pulse Rate 117 H 125 H 124 H Respiratory Rate Blood Pressure Blood Pressure [Left] O2 Sat by Pulse 99 94 96 Oximetry 08/17/20 08/17/20 08/17/20 12:44 12:49 12:52 Temperature Pulse Rate 118 H 113 H 120 H Respiratory Rate Blood Pressure Blood Pressure [Left] O2 Sat by Pulse 97 96 93 Oximetry 08/17/20 08/17/20 08/17/20 12:54 12:59 13:04 Temperature Pulse Rate 105 H 113 H 76 Respiratory Rate Blood Pressure Blood Pressure [Left] O2 Sat by Pulse 92 95 100 Oximetry 08/17/20 08/17/20 08/17/20 13:11 13:16 13:21 Temperature Pulse Rate 100 H 120 H 115 H Respiratory Rate Blood Pressure Blood Pressure [Left] O2 Sat by Pulse 99 98 95 Oximetry 08/17/20 08/17/20 08/17/20 13:25 13:26 13:31 Temperature Pulse Rate 107 H 108 H 108 H Respiratory Rate Blood Pressure Blood Pressure [Left] O2 Sat by Pulse 91 96 95 Oximetry 08/17/20 08/17/20 08/17/20 13:36 13:38 13:41 Temperature Pulse Rate 111 H 97 H 122 H Respiratory Rate Blood Pressure Blood Pressure [Left] O2 Sat by Pulse 96 93 97 Oximetry 08/17/20 08/17/20 08/17/20 13:46 13:50 13:51 Temperature Pulse Rate 103 H 98 H 106 H Respiratory Rate Blood Pressure Blood Pressure [Left] O2 Sat by Pulse 96 93 96 Oximetry 08/17/20 13:56 Temperature Pulse Rate 107 H Respiratory Rate Blood Pressure Blood Pressure [Left] O2 Sat by Pulse 96 Oximetry - Exam Abdomen: Present: soft FHR: category 1 Uterine Contraction Pattern: Absent Extremities: normal - Labs Labs: Abnormal Labs 08/07/20 08/07/20 08/08/20 13:39 18:35 01:02 RDW 13.1 L Seg Neutrophils % 72.8 H Sodium Carbon Dioxide BUN Creatinine Glucose Calcium Magnesium 4.10 H 5.00 H AST ALT Total Protein Albumin 08/08/20 08/08/20 08/08/20 13:04 17:26 17:26 RDW Seg Neutrophils % Sodium 134 L Carbon Dioxide 17 L BUN 3 L Creatinine 0.5 L Glucose 145 H Calcium 7.2 L Magnesium 5.50 H 5.50 H AST ALT < 5 L Total Protein 6.1 L Albumin 3.8 L 08/09/20 08/09/20 08/09/20 00:31 07:32 12:24 RDW Seg Neutrophils % Sodium Carbon Dioxide BUN Creatinine Glucose Calcium Magnesium 5.50 H 5.30 H 5.50 H AST ALT Total Protein Albumin 08/09/20 08/10/20 08/17/20 18:08 01:07 06:41 RDW Seg Neutrophils % Sodium 134 L Carbon Dioxide BUN Creatinine 0.5 L Glucose 211 H Calcium Magnesium 4.80 H 3.60 H AST < 5 L ALT < 5 L Total Protein Albumin 3.3 L Laboratory Results - last 24 hr 08/16/20 08/16/20 08/17/20 22:46 22:46 06:41 Sodium 134 L Potassium 4.2 Chloride 99.3 Carbon Dioxide 22 Anion Gap 17 BUN 8 Creatinine 0.5 L Estimated GFR > 60 BUN/Creatinine Ratio 16 Glucose 211 H Calcium 9.3 Total Bilirubin < 0.20 AST < 5 L ALT < 5 L Alkaline Phosphatase 65 Total Creatine Kinase 34 Troponin T < 0.010 < 0.010 Total Protein 6.6 Albumin 3.3 L Albumin/Globulin Ratio 1.0
[2020-08-17] MEDS: SERTRALINE 50 MG TAB PO SCH (16:08)
--- NOTE | 2020-08-17 21:39 | Consultation ---
History of Present Illness Consult date: 08/17/20 Requesting physician: JOSELIN EVANS Consult reason: chest pain History of present illness: Pt is 30-year-old AA female admitted for mgmt of labor currently @ 27w/4d. Cardiology has been consulted to evaluate chest pain. Pt reports an episode of chest pain x 1 week ago with a subsequent episode x 2 days ago, both of which lasted only a few seconds. Pt describes pain as substernal pressure radiating to the left side of her chest and underneath her breast. She reports her breathing and heart rate speed up when she feels the aforementioned discomfort in her chest. Pt denies any additional cardiac complaints. No further cardiac hx reported. Trop neg x 2. ECG reveals NSR, non-specific ST & T wave abnormality. Past History Past Medical History: GERD, migraines, other (pseudotumor cerebri) Social history: denies: smoking, alcohol abuse Family history: hypertension Medications and Allergies Allergies Allergy/AdvReac Type Severity Reaction Status Date / Time No Known Allergies Allergy Verified 08/07/20 11:08 Home Medications Medication Instructions Recorded Confirmed Last Taken Type metroNIDAZOLE [Flagyl] 500 mg PO Q12HR #14 tab 01/28/20 08/07/20 Unknown Rx Active Meds: Active Medications Acetaminophen (Acetaminophen 500 Mg Tab) 1,000 mg PO Q6H PRN PRN Reason: Pain MILD(1-3)/Fever >100.5/SANCHEZ Last Admin: 08/16/20 15:22 Dose: 1,000 mg Documented by: Al Hydrox/Mg Hydrox/Simethicone (Alum-Mag Hydroxide-Simethicone [phone]/5ml Oral Liqd 30 Ml) 30 ml PO Q4H PRN PRN Reason: Indigestion Benzocaine/Menthol (Benzocaine/Menthol Lozenge) 1 each MM Q2H PRN PRN Reason: Sore Throat Calcium Carbonate/Glycine (Calcium Carbonate 500 Mg Tab Chew) 500 mg PO Q4H PRN PRN Reason: Indigestion Last Admin: 08/10/20 06:49 Dose: 500 mg Documented by: Clotrimazole (Clotrimazole 1% Vag Cream 45 Gm) 1 applic VG QDAY GALEN Stop: 08/21/20 10:01 Diphenhydramine HCl (Diphenhydramine 25 Mg Cap) 50 mg PO QHS PRN PRN Reason: Sleep Last Admin: 08/16/20 23:30 Dose: 50 mg Documented by: Docusate Sodium (Docusate Sodium 100 Mg Cap) 100 mg PO Q12H PRN PRN Reason: Constipation Last Admin: 08/16/20 09:21 Dose: 100 mg Documented by: Famotidine (Famotidine 20 Mg Tab) 40 mg PO QDAY [facility] Last Admin: 08/17/20 10:11 Dose: 40 mg Documented by: Guaifenesin (Guaifenesin Dm 200/20 Mg Oral Liqd 10 Ml) 10 ml PO Q6H PRN PRN Reason: Cough Lactated Ringer's (Lactated Ringers) 500 mls @ 999 mls/hr IV DIRECT [facility] Last Admin: 08/16/20 19:07 Dose: 999 mls/hr Documented by: Lactated Ringer's (Lactated Ringers) 500 mls @ 999 mls/hr IV DIRECT [facility] Last Admin: 08/17/20 18:22 Dose: 125 mls/hr Documented by: Lidocaine HCl (Magic Mouthwash 30ml) 15 ml PO Q4HR PRN PRN Reason: Mouth Pain or soreness Last Admin: 08/13/20 06:48 Dose: 15 ml Documented by: Multivitamins/Iron/Calcium ( Ddg15-Tl Fumarate-Folic Acid Vit Tab) 1 each PO QDAY [facility] Last Admin: 08/17/20 10:11 Dose: 1 each Documented by: Sertraline HCl (Sertraline 50 Mg Tab) 50 mg PO QDAY [facility] Last Admin: 08/17/20 16:08 Dose: 50 mg Documented by: Simethicone (Simethicone 80 Mg Chew Tab) 80 mg PO Q6H PRN PRN Reason: Gas pain Sodium Chloride (Sodium Chloride Nasal [place] 44ml) 2 spray NS Q4H PRN PRN Reason: Congestion Review of Systems Constitutional: no fever, no chills, no sweats Ears, nose, mouth and throat: no nasal congestion, no sore throat Cardiovascular: chest pain, rapid/irregular heart beat, no orthopnea, no palpitations, no edema, no syncope, no lightheadedness, no shortness of breath, no dyspnea on exertion, no paroxysmal nocturnal dyspnea Respiratory: no cough, no shortness of breath, no wheezing Gastrointestinal: no abdominal pain, no nausea, no vomiting, no diarrhea, no constipation Genitourinary Female: no flank pain, no dysuria Musculoskeletal: no neck stiffness, no neck pain, no myalgias Integumentary: no rash, no wounds Neurological: migraines, no head injury, no paralysis, no weakness, no parathesias, no numbness, no tingling, no seizures, no syncope, no vertigo Endocrine: no cold intolerance, no heat intolerance, no polydipsia, no polyuria Hematologic/Lymphatic: no easy bruising, no easy bleeding Allergic/Immunologic: no urticaria, no anaphylaxis Physical Examination Last Vital Signs Temp 98.0 F 08/17/20 19:33 Pulse 94 H 08/17/20 21:48 Resp 17 08/17/20 19:33 BP 117/65 08/17/20 19:33 Pulse Ox 100 08/17/20 21:48 General appearance: no acute distress HEENT: Positive: EOMI, Normocephaly, Mucus Membranes Moist Neck: Positive: neck supple, trachea midline. Negative: JVD/HJR Cardiac: Positive: Reg Rate and Rhythm, S1/S2. Negative: Audible Murmur Lungs: Positive: clear to auscultation Neuro: Positive: Grossly Intact Abdomen: Positive: Soft. Negative: Tender Skin: Negative: Rash Musculoskeletal: No Pain, Normal Range of Motion Extremities: Present: upper extr. pulses, lower extr. pulses. Absent: edema Results 08/07/20 13:39 08/17/20 06:41 Cardiac Enzymes 08/17/20 Range/Units 06:41 AST < 5 L (5-40) units/L Comprehensive Metabolic Panel 08/17/20 Range/Units 06:41 Sodium 134 L (137-145) mmol/L Potassium 4.2 (3.6-5.0) mmol/L Chloride 99.3 (98-107) mmol/L Carbon Dioxide 22 (22-30) mmol/L BUN 8 (7-17) mg/dL Creatinine 0.5 L (0.6-1.2) mg/dL Glucose 211 H (65-100) mg/dL Calcium 9.3 (8.4-10.2) mg/dL AST < 5 L (5-40) units/L ALT < 5 L (7-56) units/L Alkaline Phosphatase 65 (35-129) units/L Total Protein 6.6 (6.3-8.2) g/dL Albumin 3.3 L (3.9-5) g/dL - Imaging and Cardiology Echo: report reviewed (08/16/2020 - EF 50-55%, no significant valvular abnormalities) EKG: report reviewed, image reviewed - EKG Interpretation EKG: no acute changes EKG interpretations - Telemetry EKG Rhythm: Sinus Rhythm - EKG Sinus rhythms and dysrhythmias: sinus rhythm Repolarization changes or abnormalities: nonspecific abnormality, ST segment, and/or T wave Assessment and Plan TTE 08/16/2020 reviewed - EF 50-55%, no significant valvular abnormalities. Chest CTA noted to be negative for PE, no additional acute findings. Clinical findings suggestive of atypical chest pain likely in the setting of anxiety +/- GERD. Agree with resumption of Zoloft. Advised pt to sit up for 30 min - 1 hr after eating. Otherwise stable cardiac status. Will see PRN. Please do not hesitate to call if any questions and/or if cardiac sx reoccur - . Pt seen in conjunction with Dr. Carney, who agrees with the assessment and plan of care. - Patient Problems (1) Atypical chest pain Current Visit: Yes Status: Resolved (2) 27 weeks gestation of Current Visit: Yes Status: Acute (3) GERD (gastroesophageal reflux disease) Current Visit: Yes Status: Chronic (4) Anxiety Current Visit: Yes Status: Chronic (5) Pseudotumor cerebri Current Visit: Yes Status: Chronic
--- NOTE | 2020-08-18 09:05 | Progress Note ---
Assessment and Plan patient resting, no complains. Reviewed plan of care, all questions addressed. pt denies leaking, bleeding or ctx. she reports active FM. 1. IUP at 27+5 weeks gestation s/p BMZ 2. 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 History of PTD x 2 Intrapartum demise 4. History of Pseudotumor cerebri 5. Anxiety on zoloft AMFM Rec: 1. Continue to monitor for labor , ROM 2. Continue 17OHP injections q Wednesday 3. Continue inpatient observation, reevaluate cervical length/dilation at 28 weeks gestation to determine if she is a candidate for out pt management - Patient Problems (1) labor in second trimester Current Visit: Yes Status: Acute Qualifiers: Fetus number: single or unspecified fetus (2) Abnormal glucose tolerance test (GTT) during , antepartum Onset Date: ~08/10/20 Current Visit: Yes Status: Acute Plan to address problem: 3hGTT ordered for 08/19 (3) Pseudotumor cerebri Current Visit: Yes Status: Chronic (4) 27 weeks gestation of Current Visit: Yes Status: Acute (5) Chest pain Current Visit: Yes Status: Acute Qualifiers: Chest pain type: unspecified Qualified Code(s): R07.9 - Chest pain, unspecified Plan to address problem: CT scan neg pneumonia and PE ECHO done Pt currently doesn't have any chest pain, states " I think it's just my anxiety" Cardiology consult done - atypical chest pain likely associated with anxiety and GERD (6) Anxiety Current Visit: Yes Status: Chronic Subjective - Subjective Date of service: 08/18/20 Principal diagnosis: IUP @27w 5/7d; labor; steriods complete Interval history: EDC Confirmation: 11/12/2020 Past History : 3 Term Births: 0 Premature Births: 2 Living Children: 1 Para: 2 Mult. Births: 0 Prev : 0 Prev. attempt? 0 Aborta: 0 Elect. Ab: 0 Spont. 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 of genital herpes: no Partner hx. of genital herpes: no Rash, Viral, or Febrile illness since last LMP? no Varicella/Chicken Pox Status: Previous Disease Genetic History Congenital Heart Defect: Mom: no Dad: no Oziel Disease: Mom: no Dad: no Thalassemia Mom: no Dad: no Neural Tube Defect Mom: no Dad: no Down's Syndrome Mom: no Dad: no David-Sachs Mom: no Dad: no Sickle Cell Disease/Trait Mom: yes Dad: no Hemophilia Mom: no Dad: no Muscular Dystrophy Mom: no Dad: no Cystic Fibrosis Mom: no Dad: no Jay Em Chorea Mom: no Dad: no Mental Retardation Mom: no Dad: no Fragile X Mom: no Dad: no Other Genetic/Chromosomal Disorder Mom: no Dad: no Child w/other defect Mom: no Dad: no Enviromental Exposures Xray Exposure: no Medication, drug, or alcohol use since LMP: no Chemical/Other Exposure: no Exposure to Cat Liter: no Hx of Parvovirus (Fifth Disease): no Occupational Exposure to Children: none Current Allergies: No known allergies Patient reports: new complaints (no chest pain), movement normal, no loss of fluid, no vaginal bleeding, no contractions Objective - Vital Signs Vital Signs: Vital Signs - 12hr 08/17/20 08/17/20 08/17/20 21:06 21:08 21:11 Temperature Pulse Rate 92 H 92 H 89 Respiratory Rate Blood Pressure Blood Pressure [Left] O2 Sat by Pulse 94 94 94 Oximetry 08/17/20 08/17/20 08/17/20 21:16 21:21 21:22 Temperature Pulse Rate 98 H 99 H 85 Respiratory Rate Blood Pressure Blood Pressure [Left] O2 Sat by Pulse 93 96 94 Oximetry 08/17/20 08/17/20 08/17/20 21:26 21:33 21:38 Temperature Pulse Rate 112 H 93 H 98 H Respiratory Rate Blood Pressure Blood Pressure [Left] O2 Sat by Pulse 98 98 100 Oximetry 08/17/20 08/17/20 08/17/20 21:43 21:48 21:53 Temperature Pulse Rate 91 H 94 H 90 Respiratory Rate Blood Pressure Blood Pressure [Left] O2 Sat by Pulse 99 100 100 Oximetry 08/17/20 08/17/20 08/17/20 21:58 22:03 22:08 Temperature Pulse Rate 98 H 90 93 H Respiratory Rate Blood Pressure Blood Pressure [Left] O2 Sat by Pulse 99 99 99 Oximetry 08/17/20 08/17/20 08/17/20 23:11 23:16 23:21 Temperature Pulse Rate 119 H 129 H 113 H Respiratory Rate Blood Pressure Blood Pressure [Left] O2 Sat by Pulse 96 97 98 Oximetry 08/17/20 08/17/20 08/17/20 23:26 23:31 23:42 Temperature Pulse Rate 102 H 96 H 88 Respiratory Rate Blood Pressure Blood Pressure [Left] O2 Sat by Pulse 97 97 98 Oximetry 08/17/20 08/17/20 08/17/20 23:47 23:51 23:52 Temperature 98.3 F Pulse Rate 95 H 90 99 H Respiratory 19 Rate Blood Pressure 123/79 Blood Pressure [Left] O2 Sat by Pulse 98 97 Oximetry 08/17/20 08/18/20 08/18/20 23:57 00:02 00:14 Temperature Pulse Rate 111 H 99 H 97 H Respiratory Rate Blood Pressure Blood Pressure [Left] O2 Sat by Pulse 97 97 97 Oximetry 08/18/20 08/18/20 08/18/20 00:19 00:24 00:29 Temperature Pulse Rate 93 H 108 H 103 H Respiratory Rate Blood Pressure Blood Pressure [Left] O2 Sat by Pulse 98 97 97 Oximetry 08/18/20 08/18/20 08/18/20 00:34 00:39 00:44 Temperature Pulse Rate 102 H 102 H 106 H Respiratory Rate Blood Pressure Blood Pressure [Left] O2 Sat by Pulse 98 97 98 Oximetry 08/18/20 08/18/20 08/18/20 00:49 00:54 00:59 Temperature Pulse Rate 98 H 103 H 89 Respiratory Rate Blood Pressure Blood Pressure [Left] O2 Sat by Pulse 96 97 97 Oximetry 08/18/20 08/18/20 08/18/20 01:05 01:10 01:15 Temperature Pulse Rate 99 H 108 H Respiratory Rate Blood Pressure Blood Pressure [Left] O2 Sat by Pulse 100 99 99 Oximetry 08/18/20 08/18/20 08/18/20 01:20 01:25 01:30 Temperature Pulse Rate 100 H 99 H 104 H Respiratory Rate Blood Pressure Blood Pressure [Left] O2 Sat by Pulse 99 99 98 Oximetry 08/18/20 08/18/20 08/18/20 01:35 01:40 01:45 Temperature Pulse Rate 100 H 97 H 102 H Respiratory Rate Blood Pressure Blood Pressure [Left] O2 Sat by Pulse 98 99 98 Oximetry 08/18/20 08/18/20 08/18/20 01:50 01:55 02:00 Temperature Pulse Rate 100 H 95 H 97 H Respiratory Rate Blood Pressure Blood Pressure [Left] O2 Sat by Pulse 99 98 97 Oximetry 08/18/20 08/18/20 08/18/20 02:05 02:12 02:17 Temperature Pulse Rate 97 H 95 H 94 H Respiratory Rate Blood Pressure Blood Pressure [Left] O2 Sat by Pulse 98 99 99 Oximetry 08/18/20 08/18/20 08/18/20 02:22 02:27 02:32 Temperature Pulse Rate 102 H 96 H 96 H Respiratory Rate Blood Pressure Blood Pressure [Left] O2 Sat by Pulse 99 99 99 Oximetry 08/18/20 08/18/20 08/18/20 02:37 02:42 02:47 Temperature Pulse Rate 99 H 104 H 95 H Respiratory Rate Blood Pressure Blood Pressure [Left] O2 Sat by Pulse 99 99 99 Oximetry 08/18/20 08/18/20 08/18/20 02:52 02:57 03:02 Temperature Pulse Rate 97 H 102 H 99 H Respiratory Rate Blood Pressure Blood Pressure [Left] O2 Sat by Pulse 99 99 98 Oximetry 08/18/20 08/18/20 08/18/20 03:07 03:19 03:24 Temperature Pulse Rate 96 H 110 H 100 H Respiratory Rate Blood Pressure Blood Pressure [Left] O2 Sat by Pulse 99 99 98 Oximetry 08/18/20 08/18/20 08/18/20 03:29 03:34 03:39 Temperature Pulse Rate 101 H 100 H 103 H Respiratory Rate Blood Pressure Blood Pressure [Left] O2 Sat by Pulse 98 98 98 Oximetry 08/18/20 08/18/20 08/18/20 03:44 03:49 03:54 Temperature Pulse Rate 104 H 104 H 101 H Respiratory Rate Blood Pressure Blood Pressure [Left] O2 Sat by Pulse 98 99 100 Oximetry 08/18/20 08/18/20 08/18/20 03:59 04:04 04:06 Temperature Pulse Rate 110 H 102 H 105 H Respiratory Rate Blood Pressure Blood Pressure [Left] O2 Sat by Pulse 99 98 94 Oximetry 08/18/20 08/18/20 08/18/20 04:09 04:10 04:15 Temperature 98.4 F Pulse Rate 93 H 96 H 91 H Respiratory 17 Rate Blood Pressure 127/79 Blood Pressure [Left] O2 Sat by Pulse 98 98 Oximetry 08/18/20 08/18/20 08/18/20 04:20 04:25 04:30 Temperature Pulse Rate 94 H 98 H 94 H Respiratory Rate Blood Pressure Blood Pressure [Left] O2 Sat by Pulse 97 98 97 Oximetry 08/18/20 08/18/20 08/18/20 04:35 04:40 04:45 Temperature Pulse Rate 91 H 94 H 97 H Respiratory Rate Blood Pressure Blood Pressure [Left] O2 Sat by Pulse 99 98 99 Oximetry 08/18/20 08/18/20 08/18/20 04:50 04:55 05:00 Temperature Pulse Rate 94 H 88 93 H Respiratory Rate Blood Pressure Blood Pressure [Left] O2 Sat by Pulse 99 99 99 Oximetry 08/18/20 08/18/20 08/18/20 05:05 05:10 05:15 Temperature Pulse Rate 110 H 105 H 103 H Respiratory Rate Blood Pressure Blood Pressure [Left] O2 Sat by Pulse 98 98 97 Oximetry 08/18/20 08/18/20 08/18/20 05:20 05:25 05:26 Temperature Pulse Rate 110 H 109 H 109 H Respiratory Rate Blood Pressure Blood Pressure [Left] O2 Sat by Pulse 96 94 94 Oximetry 08/18/20 08/18/20 08/18/20 05:30 05:31 05:36 Temperature Pulse Rate 125 H 115 H 59 L Respiratory Rate Blood Pressure Blood Pressure [Left] O2 Sat by Pulse 91 94 99 Oximetry 08/18/20 08/18/20 08/18/20 05:41 05:45 05:46 Temperature Pulse Rate 102 H 111 H 109 H Respiratory Rate Blood Pressure Blood Pressure [Left] O2 Sat by Pulse 96 94 95 Oximetry 08/18/20 08/18/20 08/18/20 05:51 05:56 05:57 Temperature Pulse Rate 96 H 106 H 104 H Respiratory Rate Blood Pressure Blood Pressure [Left] O2 Sat by Pulse 98 95 94 Oximetry 08/18/20 08/18/20 08/18/20 06:01 06:04 06:06 Temperature Pulse Rate 104 H 108 H 109 H Respiratory Rate Blood Pressure Blood Pressure [Left] O2 Sat by Pulse 93 94 95 Oximetry 08/18/20 08/18/20 08/18/20 06:10 06:11 06:16 Temperature Pulse Rate 111 H 124 H 107 H Respiratory Rate Blood Pressure Blood Pressure [Left] O2 Sat by Pulse 93 93 95 Oximetry 08/18/20 08/18/20 08/18/20 06:21 06:24 06:26 Temperature Pulse Rate 109 H 109 H 110 H Respiratory Rate Blood Pressure Blood Pressure [Left] O2 Sat by Pulse 96 94 96 Oximetry 08/18/20 08/18/20 08/18/20 06:31 06:36 06:37 Temperature Pulse Rate 111 H 109 H 123 H Respiratory Rate Blood Pressure Blood Pressure [Left] O2 Sat by Pulse 96 95 93 Oximetry 08/18/20 08/18/20 08/18/20 06:41 06:43 06:46 Temperature Pulse Rate 121 H 111 H 118 H Respiratory Rate Blood Pressure Blood Pressure [Left] O2 Sat by Pulse 93 94 97 Oximetry 08/18/20 08/18/20 08/18/20 06:51 06:56 07:01 Temperature Pulse Rate 112 H 118 H 115 H Respiratory Rate Blood Pressure Blood Pressure [Left] O2 Sat by Pulse 97 96 96 Oximetry 08/18/20 08/18/20 08/18/20 07:06 07:11 07:16 Temperature Pulse Rate 114 H 113 H 112 H Respiratory Rate Blood Pressure Blood Pressure [Left] O2 Sat by Pulse 97 97 96 Oximetry 08/18/20 08/18/20 08/18/20 07:21 07:22 07:26 Temperature 98.7 F Pulse Rate 121 H 125 H 110 H Respiratory 16 Rate Blood Pressure 112/66 Blood Pressure 112/66 [Left] O2 Sat by Pulse 97 97 96 Oximetry 08/18/20 08/18/20 08/18/20 07:31 07:36 07:41 Temperature Pulse Rate 110 H 111 H 111 H Respiratory Rate Blood Pressure Blood Pressure [Left] O2 Sat by Pulse 97 97 97 Oximetry 08/18/20 08/18/20 08/18/20 07:46 07:54 07:59 Temperature Pulse Rate 111 H 123 H 108 H Respiratory Rate Blood Pressure Blood Pressure [Left] O2 Sat by Pulse 97 98 96 Oximetry 08/18/20 08/18/20 08/18/20 08:04 08:09 08:14 Temperature Pulse Rate 109 H 108 H 117 H Respiratory Rate Blood Pressure Blood Pressure [Left] O2 Sat by Pulse 96 96 96 Oximetry 08/18/20 08/18/20 08/18/20 08:19 08:24 08:29 Temperature Pulse Rate 111 H 114 H 118 H Respiratory Rate Blood Pressure Blood Pressure [Left] O2 Sat by Pulse 97 97 97 Oximetry 08/18/20 08/18/20 08/18/20 08:34 08:39 08:44 Temperature Pulse Rate 114 H 107 H 109 H Respiratory Rate Blood Pressure Blood Pressure [Left] O2 Sat by Pulse 97 98 96 Oximetry 08/18/20 08/18/20 08/18/20 08:46 08:49 08:54 Temperature Pulse Rate 117 H 131 H 107 H Respiratory Rate Blood Pressure Blood Pressure [Left] O2 Sat by Pulse 94 100 96 Oximetry 08/18/20 08:59 Temperature Pulse Rate 112 H Respiratory Rate Blood Pressure Blood Pressure [Left] O2 Sat by Pulse 96 Oximetry - Exam Cardiovascular: Regular rate Lungs: Normal air movement Abdomen: Present: normal appearance, soft Uterus: Present: normal, fundal height above umbilicus FHR: auscultation normal, category 1 Uterine Contraction Monitor Mode: External Uterine Contraction Pattern: Absent Uterine Tone Measurement Phase: Resting Extremities: normal Deep Tendon Reflex Grade: Normal +2 - Labs Labs: Abnormal Labs 08/07/20 08/07/20 08/08/20 13:39 18:35 01:02 RDW 13.1 L Seg Neutrophils % 72.8 H Sodium Carbon Dioxide BUN Creatinine Glucose Calcium Magnesium 4.10 H 5.00 H AST ALT Total Protein Albumin 08/08/20 08/08/20 08/08/20 13:04 17:26 17:26 RDW Seg Neutrophils % Sodium 134 L Carbon Dioxide 17 L BUN 3 L Creatinine 0.5 L Glucose 145 H Calcium 7.2 L Magnesium 5.50 H 5.50 H AST ALT < 5 L Total Protein 6.1 L Albumin 3.8 L 08/09/20 08/09/20 08/09/20 00:31 07:32 12:24 RDW Seg Neutrophils % Sodium Carbon Dioxide BUN Creatinine Glucose Calcium Magnesium 5.50 H 5.30 H 5.50 H AST ALT Total Protein Albumin 08/09/20 08/10/20 08/17/20 18:08 01:07 06:41 RDW Seg Neutrophils % Sodium 134 L Carbon Dioxide BUN Creatinine 0.5 L Glucose 211 H Calcium Magnesium 4.80 H 3.60 H AST < 5 L ALT < 5 L Total Protein Albumin 3.3 L
[2020-08-18] MEDS ORDERED: SERTRALINE 50 MG TAB PO SCH (10:00)
[2020-08-18] MEDS: FAMOTIDINE 20 MG TAB PO SCH (10:28)
[2020-08-18] MEDS: SERTRALINE 50 MG TAB PO SCH (10:28)
[2020-08-18] MEDS: PRENATAL VIT27-FE FUMARATE-FOLIC ACID VIT TAB PO SCH (10:28)
[2020-08-18] MEDS: DOCUSATE SODIUM 100 MG CAP PO PRN (10:55)
[2020-08-18] MEDS: diphenhydrAMINE 25 MG CAP PO PRN (21:29)
--- NOTE | 2020-08-19 06:39 | Progress Note ---
Assessment and Plan Pt in good spirits this AM. Aware to be NPO and that the GTT will take 4 sticks. Anxious for tomorrow "I'm ready to go home." Cervical length to be done tomorrow. 1. IUP at 27+6 weeks gestation s/p BMZ 2. 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 History of PTD x 2 Intrapartum demise 4. History of Pseudotumor cerebri 5. Anxiety on zoloft AMFM Rec: 1. Continue to monitor for labor , ROM 2. Continue 17OHP injections q Wednesday 3. Continue inpatient observation, reevaluate cervical length/dilation at 28 weeks gestation to determine if she is a candidate for out pt management - Patient Problems (1) Abnormal glucose tolerance test (GTT) during , antepartum Onset Date: ~08/10/20 Current Visit: Yes Status: Acute Plan to address problem: 3hr GTT being done this AM. Pt is aware to remain NPO (2) 27 weeks gestation of Onset Date: ~08/19/20 Current Visit: Yes Status: Acute Subjective - Subjective Date of service: 08/19/20 (pt NPO for 3hr GTT) Principal diagnosis: IUP @27w 6/7d; labor; steriods complete; 3hr GTT today Patient reports: new complaints (no chest pain), movement normal, no loss of fluid, no vaginal bleeding, no contractions Objective - Vital Signs Vital Signs: Vital Signs - 12hr 08/18/20 08/18/20 08/18/20 18:36 18:41 18:46 Temperature Pulse Rate 106 H 114 H 111 H Respiratory Rate Blood Pressure O2 Sat by Pulse 96 97 97 Oximetry 08/18/20 08/18/20 08/18/20 18:51 18:56 19:01 Temperature Pulse Rate 104 H 107 H 109 H Respiratory Rate Blood Pressure O2 Sat by Pulse 99 98 99 Oximetry 08/18/20 08/18/20 08/18/20 19:06 19:11 19:16 Temperature Pulse Rate 113 H 106 H 108 H Respiratory Rate Blood Pressure O2 Sat by Pulse 98 98 96 Oximetry 08/18/20 08/18/20 08/18/20 19:21 19:26 19:31 Temperature Pulse Rate 105 H 111 H 111 H Respiratory Rate Blood Pressure O2 Sat by Pulse 98 99 98 Oximetry 0508/18/20 08/18/20 19:32 19:36 19:41 Temperature Pulse Rate 104 H 104 H 105 H Respiratory Rate Blood Pressure 120/68 O2 Sat by Pulse 96 97 Oximetry 08/18/20 08/18/20 08/18/20 19:46 19:51 19:56 Temperature 98.4 F Pulse Rate 107 H 127 H 111 H Respiratory 18 Rate Blood Pressure O2 Sat by Pulse 97 97 97 Oximetry 08/18/20 08/18/20 08/18/20 20:01 20:06 20:11 Temperature Pulse Rate 105 H 114 H 102 H Respiratory Rate Blood Pressure O2 Sat by Pulse 98 98 97 Oximetry 08/18/20 08/18/20 08/18/20 20:17 20:22 20:28 Temperature Pulse Rate 98 H 103 H 105 H Respiratory Rate Blood Pressure O2 Sat by Pulse 96 95 95 Oximetry 08/18/20 08/18/20 08/18/20 20:29 20:33 20:38 Temperature Pulse Rate 102 H 99 H 105 H Respiratory Rate Blood Pressure O2 Sat by Pulse 93 95 96 Oximetry 08/18/20 08/18/20 08/18/20 20:43 20:46 20:48 Temperature Pulse Rate 116 H 113 H 114 H Respiratory Rate Blood Pressure O2 Sat by Pulse 96 93 94 Oximetry 08/18/20 08/18/20 08/18/20 20:52 20:53 21:02 Temperature Pulse Rate 112 H 109 H 61 Respiratory Rate Blood Pressure O2 Sat by Pulse 94 94 95 Oximetry 08/18/20 08/18/20 08/18/20 21:07 21:12 21:17 Temperature Pulse Rate 111 H 115 H 107 H Respiratory Rate Blood Pressure O2 Sat by Pulse 95 97 97 Oximetry 08/18/20 08/18/20 08/18/20 21:22 21:27 21:32 Temperature Pulse Rate 108 H 105 H 110 H Respiratory Rate Blood Pressure O2 Sat by Pulse 98 96 98 Oximetry 08/18/20 08/18/20 08/18/20 21:37 21:42 21:47 Temperature Pulse Rate 108 H 114 H 117 H Respiratory Rate Blood Pressure O2 Sat by Pulse 96 96 100 Oximetry 08/18/20 08/18/20 08/18/20 21:52 21:57 22:02 Temperature Pulse Rate 107 H 115 H 107 H Respiratory Rate Blood Pressure O2 Sat by Pulse 97 98 98 Oximetry 08/18/20 08/18/20 08/18/20 22:09 22:14 22:19 Temperature Pulse Rate 104 H 112 H 115 H Respiratory Rate Blood Pressure O2 Sat by Pulse 99 97 98 Oximetry 08/18/20 08/18/20 08/18/20 22:24 22:29 22:34 Temperature Pulse Rate 113 H 118 H 114 H Respiratory Rate Blood Pressure O2 Sat by Pulse 98 98 95 Oximetry 08/18/20 08/18/20 08/18/20 22:38 22:39 22:43 Temperature Pulse Rate 117 H 114 H 116 H Respiratory Rate Blood Pressure O2 Sat by Pulse 94 95 94 Oximetry 08/18/20 08/18/20 08/18/20 22:44 22:49 22:54 Temperature Pulse Rate 109 H 112 H 119 H Respiratory Rate Blood Pressure O2 Sat by Pulse 98 93 96 Oximetry 08/18/20 08/18/20 08/18/20 22:59 23:01 23:04 Temperature Pulse Rate 115 H 113 H 115 H Respiratory Rate Blood Pressure O2 Sat by Pulse 93 94 95 Oximetry 08/18/20 08/18/20 08/18/20 23:08 23:09 23:14 Temperature Pulse Rate 116 H 117 H 115 H Respiratory Rate Blood Pressure O2 Sat by Pulse 94 94 95 Oximetry 08/18/20 08/18/20 08/18/20 23:16 23:19 23:23 Temperature Pulse Rate 115 H 110 H 111 H Respiratory Rate Blood Pressure O2 Sat by Pulse 94 98 94 Oximetry 08/18/20 08/18/20 08/18/20 23:24 23:29 23:34 Temperature Pulse Rate 108 H 114 H 111 H Respiratory Rate Blood Pressure O2 Sat by Pulse 95 96 97 Oximetry 08/18/20 08/18/20 08/18/20 23:39 23:44 23:49 Temperature Pulse Rate 113 H 105 H 112 H Respiratory Rate Blood Pressure O2 Sat by Pulse 93 95 93 Oximetry 08/18/20 08/19/20 08/19/20 23:54 00:00 00:05 Temperature Pulse Rate 111 H 57 L 103 H Respiratory Rate Blood Pressure O2 Sat by Pulse 94 96 95 Oximetry 08/19/20 08/19/20 08/19/20 00:10 00:15 00:20 Temperature Pulse Rate 107 H 111 H 98 H Respiratory Rate Blood Pressure O2 Sat by Pulse 95 94 92 Oximetry 08/19/20 08/19/20 08/19/20 00:22 00:25 00:30 Temperature Pulse Rate 111 H 112 H 108 H Respiratory Rate Blood Pressure O2 Sat by Pulse 94 95 94 Oximetry 08/19/20 08/19/20 08/19/20 00:35 00:40 00:45 Temperature Pulse Rate 106 H 105 H 109 H Respiratory Rate Blood Pressure O2 Sat by Pulse 97 96 96 Oximetry 08/19/20 08/19/20 08/19/20 00:50 00:55 01:00 Temperature Pulse Rate 107 H 47 L 113 H Respiratory Rate Blood Pressure O2 Sat by Pulse 97 93 96 Oximetry 08/19/20 08/19/20 08/19/20 01:05 01:07 01:10 Temperature Pulse Rate 115 H 114 H 110 H Respiratory Rate Blood Pressure O2 Sat by Pulse 95 94 95 Oximetry 08/19/20 08/19/20 08/19/20 01:15 01:18 01:20 Temperature Pulse Rate 112 H 110 H 111 H Respiratory Rate Blood Pressure O2 Sat by Pulse 96 94 95 Oximetry 08/19/20 08/19/20 08/19/20 01:23 01:25 01:30 Temperature Pulse Rate 109 H 112 H 117 H Respiratory Rate Blood Pressure O2 Sat by Pulse 94 96 95 Oximetry 08/19/20 08/19/20 08/19/20 01:31 01:35 01:40 Temperature Pulse Rate 109 H 106 H 108 H Respiratory Rate Blood Pressure O2 Sat by Pulse 91 96 96 Oximetry 08/19/20 08/19/20 08/19/20 01:45 01:49 01:50 Temperature Pulse Rate 112 H 109 H 113 H Respiratory Rate Blood Pressure O2 Sat by Pulse 96 94 95 Oximetry 08/19/20 08/19/20 08/19/20 01:55 02:00 02:05 Temperature Pulse Rate 111 H 111 H 106 H Respiratory Rate Blood Pressure O2 Sat by Pulse 97 97 98 Oximetry 08/19/20 08/19/20 08/19/20 02:10 02:13 02:15 Temperature Pulse Rate 113 H 107 H 110 H Respiratory Rate Blood Pressure O2 Sat by Pulse 96 94 96 Oximetry 08/19/20 08/19/20 08/19/20 02:20 02:25 02:30 Temperature Pulse Rate 110 H 108 H 107 H Respiratory Rate Blood Pressure O2 Sat by Pulse 97 97 96 Oximetry 08/19/20 08/19/20 08/19/20 02:35 02:40 02:45 Temperature Pulse Rate 102 H 115 H 106 H Respiratory Rate Blood Pressure O2 Sat by Pulse 97 98 96 Oximetry 08/19/20 08/19/20 08/19/20 02:50 02:55 03:00 Temperature Pulse Rate 109 H 106 H 106 H Respiratory Rate Blood Pressure O2 Sat by Pulse 97 96 96 Oximetry 08/19/20 08/19/20 08/19/20 03:05 03:09 03:10 Temperature Pulse Rate 107 H 111 H 100 H Respiratory Rate Blood Pressure O2 Sat by Pulse 95 94 96 Oximetry 08/19/20 08/19/20 08/19/20 03:15 03:20 03:25 Temperature Pulse Rate 115 H 106 H 111 H Respiratory Rate Blood Pressure O2 Sat by Pulse 94 95 95 Oximetry 08/19/20 08/19/20 08/19/20 03:30 03:35 03:40 Temperature Pulse Rate 101 H 64 108 H Respiratory Rate Blood Pressure O2 Sat by Pulse 94 95 97 Oximetry 08/19/20 08/19/20 08/19/20 03:45 03:50 03:53 Temperature Pulse Rate 115 H 117 H 111 H Respiratory Rate Blood Pressure O2 Sat by Pulse 96 95 94 Oximetry 08/19/20 08/19/20 08/19/20 03:55 04:00 04:03 Temperature Pulse Rate 119 H 112 H 111 H Respiratory Rate Blood Pressure O2 Sat by Pulse 95 95 94 Oximetry 08/19/20 08/19/20 08/19/20 04:05 04:10 04:15 Temperature Pulse Rate 121 H 115 H 115 H Respiratory Rate Blood Pressure O2 Sat by Pulse 95 96 96 Oximetry 08/19/20 08/19/20 08/19/20 04:20 04:25 04:26 Temperature Pulse Rate 113 H 113 H 109 H Respiratory Rate Blood Pressure O2 Sat by Pulse 96 96 94 Oximetry 08/19/20 08/19/20 08/19/20 04:30 04:33 04:35 Temperature Pulse Rate 106 H 103 H 109 H Respiratory Rate Blood Pressure O2 Sat by Pulse 94 94 96 Oximetry 08/19/20 08/19/20 08/19/20 04:40 04:45 04:50 Temperature Pulse Rate 105 H 100 H 100 H Respiratory Rate Blood Pressure O2 Sat by Pulse 92 93 93 Oximetry 08/19/20 08/19/20 08/19/20 04:55 05:00 05:05 Temperature Pulse Rate 95 H 97 H 102 H Respiratory Rate Blood Pressure O2 Sat by Pulse 91 92 95 Oximetry 08/19/20 08/19/20 08/19/20 05:10 05:15 05:18 Temperature Pulse Rate 100 H 100 H 103 H Respiratory Rate Blood Pressure O2 Sat by Pulse 94 94 93 Oximetry 08/19/20 08/19/20 08/19/20 05:20 05:24 05:25 Temperature Pulse Rate 104 H 102 H 100 H Respiratory Rate Blood Pressure O2 Sat by Pulse 94 94 94 Oximetry 08/19/20 08/19/20 08/19/20 05:30 05:35 05:40 Temperature Pulse Rate 104 H 111 H 100 H Respiratory Rate Blood Pressure O2 Sat by Pulse 94 93 93 Oximetry 08/19/20 08/19/20 08/19/20 05:43 05:45 05:46 Temperature 98.3 F Pulse Rate 118 H 105 H Respiratory 16 Rate Blood Pressure 117/67 O2 Sat by Pulse 93 Oximetry 08/19/20 08/19/20 08/19/20 05:51 05:56 06:00 Temperature Pulse Rate 101 H 105 H 107 H Respiratory Rate Blood Pressure O2 Sat by Pulse 92 92 92 Oximetry 08/19/20 08/19/20 08/19/20 06:05 06:06 06:11 Temperature Pulse Rate 100 H 99 H 107 H Respiratory Rate Blood Pressure O2 Sat by Pulse 94 93 94 Oximetry 08/19/20 08/19/20 08/19/20 06:16 06:20 06:21 Temperature Pulse Rate 98 H 103 H 107 H Respiratory Rate Blood Pressure O2 Sat by Pulse 94 94 93 Oximetry 08/19/20 08/19/20 08/19/20 06:25 06:26 06:31 Temperature Pulse Rate 103 H 113 H 102 H Respiratory Rate Blood Pressure O2 Sat by Pulse 95 94 96 Oximetry - Exam Breasts: deferred Cardiovascular: Regular rate Lungs: Normal air movement Abdomen: Present: normal appearance, soft. Absent: distention, tenderness Uterus: Present: normal FHR: auscultation normal, category 1 Uterine Contraction Pattern: Absent Extremities: normal Deep Tendon Reflex Grade: Normal +2 - Labs Labs: Abnormal Labs 08/07/20 08/07/20 08/08/20 13:39 18:35 01:02 RDW 13.1 L Seg Neutrophils % 72.8 H Sodium Carbon Dioxide BUN Creatinine Glucose Calcium Magnesium 4.10 H 5.00 H AST ALT Total Protein Albumin 08/08/20 08/08/20 08/08/20 13:04 17:26 17:26 RDW Seg Neutrophils % Sodium 134 L Carbon Dioxide 17 L BUN 3 L Creatinine 0.5 L Glucose 145 H Calcium 7.2 L Magnesium 5.50 H 5.50 H AST ALT < 5 L Total Protein 6.1 L Albumin 3.8 L 08/09/20 08/09/20 08/09/20 00:31 07:32 12:24 RDW Seg Neutrophils % Sodium Carbon Dioxide BUN Creatinine Glucose Calcium Magnesium 5.50 H 5.30 H 5.50 H AST ALT Total Protein Albumin 08/09/20 08/10/20 08/17/20 18:08 01:07 06:41 RDW Seg Neutrophils % Sodium 134 L Carbon Dioxide BUN Creatinine 0.5 L Glucose 211 H Calcium Magnesium 4.80 H 3.60 H AST < 5 L ALT < 5 L Total Protein Albumin 3.3 L
[2020-08-19] MEDS: PRENATAL VIT27-FE FUMARATE-FOLIC ACID VIT TAB PO SCH (09:54)
[2020-08-19] MEDS: FAMOTIDINE 20 MG TAB PO SCH (09:54)
[2020-08-19] MEDS: SERTRALINE 50 MG TAB PO SCH (09:54)
[2020-08-19] MEDS ORDERED: PROGESTERONE IM SCH (10:00)
--- NOTE | 2020-08-19 11:10 | Electrocardiograph Report ---
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
--- NOTE | 2020-08-19 12:38 | Progress Note ---
Assessment and Plan A: 1. IUP at 27 6/7 weeks gestation s/p BMZ 2. 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 History of PTD x 2 Intrapartum demise 4. History of Pseudotumor cerebri 5. Chest pain , resolved , GERD cleared by cardiology Rec: 1. Continue to monitor for labor , ROM 2. Continue 17OHP injections q wednesday 3. Continue inpatient observation , reevaluate cervical length/dilation at 28 weeks gestation to determine if she is a candidate for outpt management Subjective - Subjective Date of service: 08/19/20 Principal diagnosis: IUP @27w 6/7d; labor; steriods complete; 3hr GTT today Interval history: Was evaluated for Chest pain, neg trop , neg EKG/Echo Cleared by cardiology She has no complaints today Denies chest pain , s/s labor Patient reports: new complaints (no chest pain), movement normal, no loss of fluid, no vaginal bleeding, no contractions Objective - Vital Signs Vital Signs: Vital Signs - 12hr 08/19/20 08/19/20 08/19/20 00:40 00:45 00:50 Temperature Pulse Rate 105 H 109 H 107 H Respiratory Rate Blood Pressure Blood Pressure [Left] O2 Sat by Pulse 96 96 97 Oximetry 08/19/20 08/19/20 08/19/20 00:55 01:00 01:05 Temperature Pulse Rate 47 L 113 H 115 H Respiratory Rate Blood Pressure Blood Pressure [Left] O2 Sat by Pulse 93 96 95 Oximetry 08/19/20 08/19/20 08/19/20 01:07 01:10 01:15 Temperature Pulse Rate 114 H 110 H 112 H Respiratory Rate Blood Pressure Blood Pressure [Left] O2 Sat by Pulse 94 95 96 Oximetry 08/19/20 08/19/20 08/19/20 01:18 01:20 01:23 Temperature Pulse Rate 110 H 111 H 109 H Respiratory Rate Blood Pressure Blood Pressure [Left] O2 Sat by Pulse 94 95 94 Oximetry 08/19/20 08/19/20 08/19/20 01:25 01:30 01:31 Temperature Pulse Rate 112 H 117 H 109 H Respiratory Rate Blood Pressure Blood Pressure [Left] O2 Sat by Pulse 96 95 91 Oximetry 08/19/20 08/19/20 08/19/20 01:35 01:40 01:45 Temperature Pulse Rate 106 H 108 H 112 H Respiratory Rate Blood Pressure Blood Pressure [Left] O2 Sat by Pulse 96 96 96 Oximetry 08/19/20 08/19/20 08/19/20 01:49 01:50 01:55 Temperature Pulse Rate 109 H 113 H 111 H Respiratory Rate Blood Pressure Blood Pressure [Left] O2 Sat by Pulse 94 95 97 Oximetry 08/19/20 08/19/20 08/19/20 02:00 02:05 02:10 Temperature Pulse Rate 111 H 106 H 113 H Respiratory Rate Blood Pressure Blood Pressure [Left] O2 Sat by Pulse 97 98 96 Oximetry 08/19/20 08/19/20 08/19/20 02:13 02:15 02:20 Temperature Pulse Rate 107 H 110 H 110 H Respiratory Rate Blood Pressure Blood Pressure [Left] O2 Sat by Pulse 94 96 97 Oximetry 08/19/20 08/19/20 08/19/20 02:25 02:30 02:35 Temperature Pulse Rate 108 H 107 H 102 H Respiratory Rate Blood Pressure Blood Pressure [Left] O2 Sat by Pulse 97 96 97 Oximetry 08/19/20 08/19/20 08/19/20 02:40 02:45 02:50 Temperature Pulse Rate 115 H 106 H 109 H Respiratory Rate Blood Pressure Blood Pressure [Left] O2 Sat by Pulse 98 96 97 Oximetry 08/19/20 08/19/20 08/19/20 02:55 03:00 03:05 Temperature Pulse Rate 106 H 106 H 107 H Respiratory Rate Blood Pressure Blood Pressure [Left] O2 Sat by Pulse 96 96 95 Oximetry 08/19/20 08/19/20 08/19/20 03:09 03:10 03:15 Temperature Pulse Rate 111 H 100 H 115 H Respiratory Rate Blood Pressure Blood Pressure [Left] O2 Sat by Pulse 94 96 94 Oximetry 08/19/20 08/19/20 08/19/20 03:20 03:25 03:30 Temperature Pulse Rate 106 H 111 H 101 H Respiratory Rate Blood Pressure Blood Pressure [Left] O2 Sat by Pulse 95 95 94 Oximetry 08/19/20 08/19/20 08/19/20 03:35 03:40 03:45 Temperature Pulse Rate 64 108 H 115 H Respiratory Rate Blood Pressure Blood Pressure [Left] O2 Sat by Pulse 95 97 96 Oximetry 08/19/20 08/19/20 08/19/20 03:50 03:53 03:55 Temperature Pulse Rate 117 H 111 H 119 H Respiratory Rate Blood Pressure Blood Pressure [Left] O2 Sat by Pulse 95 94 95 Oximetry 08/19/20 08/19/20 08/19/20 04:00 04:03 04:05 Temperature Pulse Rate 112 H 111 H 121 H Respiratory Rate Blood Pressure Blood Pressure [Left] O2 Sat by Pulse 95 94 95 Oximetry 08/19/20 08/19/20 08/19/20 04:10 04:15 04:20 Temperature Pulse Rate 115 H 115 H 113 H Respiratory Rate Blood Pressure Blood Pressure [Left] O2 Sat by Pulse 96 96 96 Oximetry 08/19/20 08/19/20 08/19/20 04:25 04:26 04:30 Temperature Pulse Rate 113 H 109 H 106 H Respiratory Rate Blood Pressure Blood Pressure [Left] O2 Sat by Pulse 96 94 94 Oximetry 08/19/20 08/19/20 08/19/20 04:33 04:35 04:40 Temperature Pulse Rate 103 H 109 H 105 H Respiratory Rate Blood Pressure Blood Pressure [Left] O2 Sat by Pulse 94 96 92 Oximetry 08/19/20 08/19/20 08/19/20 04:45 04:50 04:55 Temperature Pulse Rate 100 H 100 H 95 H Respiratory Rate Blood Pressure Blood Pressure [Left] O2 Sat by Pulse 93 93 91 Oximetry 08/19/20 08/19/20 08/19/20 05:00 05:05 05:10 Temperature Pulse Rate 97 H 102 H 100 H Respiratory Rate Blood Pressure Blood Pressure [Left] O2 Sat by Pulse 92 95 94 Oximetry 08/19/20 08/19/20 08/19/20 05:15 05:18 05:20 Temperature Pulse Rate 100 H 103 H 104 H Respiratory Rate Blood Pressure Blood Pressure [Left] O2 Sat by Pulse 94 93 94 Oximetry 08/19/20 08/19/20 08/19/20 05:24 05:25 05:30 Temperature Pulse Rate 102 H 100 H 104 H Respiratory Rate Blood Pressure Blood Pressure [Left] O2 Sat by Pulse 94 94 94 Oximetry 08/19/20 08/19/20 08/19/20 05:35 05:40 05:43 Temperature Pulse Rate 111 H 100 H 118 H Respiratory Rate Blood Pressure 117/67 Blood Pressure [Left] O2 Sat by Pulse 93 93 Oximetry 08/19/20 08/19/2021 05:45 05:46 05:51 Temperature 98.3 F Pulse Rate 105 H 101 H Respiratory 16 Rate Blood Pressure Blood Pressure [Left] O2 Sat by Pulse 93 92 Oximetry 08/19/20 08/19/20 08/19/20 05:56 06:00 06:05 Temperature Pulse Rate 105 H 107 H 100 H Respiratory Rate Blood Pressure Blood Pressure [Left] O2 Sat by Pulse 92 92 94 Oximetry 08/19/20 08/19/20 08/19/20 06:06 06:11 06:16 Temperature Pulse Rate 99 H 107 H 98 H Respiratory Rate Blood Pressure Blood Pressure [Left] O2 Sat by Pulse 93 94 94 Oximetry 08/19/20 08/19/20 08/19/20 06:20 06:21 06:25 Temperature Pulse Rate 103 H 107 H 103 H Respiratory Rate Blood Pressure Blood Pressure [Left] O2 Sat by Pulse 94 93 95 Oximetry 08/19/20 08/19/20 08/19/20 06:26 06:31 06:36 Temperature Pulse Rate 113 H 102 H 112 H Respiratory Rate Blood Pressure Blood Pressure [Left] O2 Sat by Pulse 94 96 98 Oximetry 08/19/20 08/19/20 08/19/20 06:41 06:45 06:51 Temperature Pulse Rate 112 H 105 H 97 H Respiratory Rate Blood Pressure Blood Pressure [Left] O2 Sat by Pulse 97 95 91 Oximetry 08/19/20 08/19/20 08/19/20 06:56 07:03 07:04 Temperature Pulse Rate 107 H 105 H Respiratory Rate Blood Pressure Blood Pressure [Left] O2 Sat by Pulse 93 93 95 Oximetry 08/19/20 08/19/20 08/19/20 07:09 07:11 07:13 Temperature Pulse Rate 110 H 115 H 120 H Respiratory Rate Blood Pressure Blood Pressure [Left] O2 Sat by Pulse 96 94 94 Oximetry 08/19/20 08/19/20 08/19/20 07:16 07:18 07:24 Temperature Pulse Rate 101 H 107 H 118 H Respiratory Rate Blood Pressure Blood Pressure [Left] O2 Sat by Pulse 94 96 95 Oximetry 08/19/20 08/19/20 08/19/20 07:27 07:29 07:33 Temperature Pulse Rate 110 H 109 H 112 H Respiratory Rate Blood Pressure Blood Pressure [Left] O2 Sat by Pulse 94 95 95 Oximetry 08/19/20 08/19/20 08/19/20 07:39 07:44 07:49 Temperature Pulse Rate 105 H 107 H 112 H Respiratory Rate Blood Pressure Blood Pressure [Left] O2 Sat by Pulse 94 93 95 Oximetry 08/19/20 08/19/20 08/19/20 07:53 07:54 07:55 Temperature 98.8 F Pulse Rate 116 H 108 H 107 H Respiratory 18 Rate Blood Pressure 96/52 Blood Pressure 96/52 [Left] O2 Sat by Pulse 96 96 Oximetry 08/19/20 08/19/20 08/19/20 07:58 07:59 08:03 Temperature Pulse Rate 108 H 118 H 114 H Respiratory Rate Blood Pressure Blood Pressure [Left] O2 Sat by Pulse 94 94 95 Oximetry 08/19/20 08/19/20 08/19/20 08:04 08:09 08:10 Temperature Pulse Rate 114 H 112 H 111 H Respiratory Rate Blood Pressure Blood Pressure [Left] O2 Sat by Pulse 94 95 89 Oximetry 08/19/20 08/19/20 08/19/20 08:14 08:19 08:24 Temperature Pulse Rate 113 H 116 H 112 H Respiratory Rate Blood Pressure Blood Pressure [Left] O2 Sat by Pulse 96 93 96 Oximetry 08/19/20 08/19/20 08/19/20 08:29 08:34 08:39 Temperature Pulse Rate 119 H 115 H 116 H Respiratory Rate Blood Pressure Blood Pressure [Left] O2 Sat by Pulse 98 99 95 Oximetry 08/19/20 08/19/20 08/19/20 08:44 08:49 08:51 Temperature Pulse Rate 107 H 111 H 109 H Respiratory Rate Blood Pressure Blood Pressure [Left] O2 Sat by Pulse 94 94 94 Oximetry 08/19/20 08/19/20 08/19/20 08:54 08:59 09:04 Temperature Pulse Rate 104 H 106 H 109 H Respiratory Rate Blood Pressure Blood Pressure [Left] O2 Sat by Pulse 94 93 94 Oximetry 08/19/20 08/19/20 08/19/20 09:06 09:09 09:14 Temperature Pulse Rate 119 H 104 H 112 H Respiratory Rate Blood Pressure Blood Pressure [Left] O2 Sat by Pulse 94 95 97 Oximetry 08/19/20 08/19/20 08/19/20 09:19 09:24 09:29 Temperature Pulse Rate 111 H 105 H 111 H Respiratory Rate Blood Pressure Blood Pressure [Left] O2 Sat by Pulse 97 97 97 Oximetry 08/19/20 08/19/20 08/19/20 09:34 09:37 09:39 Temperature Pulse Rate 112 H 100 H 112 H Respiratory Rate Blood Pressure Blood Pressure [Left] O2 Sat by Pulse 96 91 95 Oximetry 08/19/20 08/19/20 08/19/20 09:42 09:44 09:49 Temperature Pulse Rate 110 H 108 H 111 H Respiratory Rate Blood Pressure Blood Pressure [Left] O2 Sat by Pulse 94 95 95 Oximetry 08/19/20 08/19/20 08/19/20 09:50 09:54 11:29 Temperature Pulse Rate 102 H 130 H 73 Respiratory Rate Blood Pressure Blood Pressure [Left] O2 Sat by Pulse 93 96 63 L Oximetry 08/19/20 08/19/20 08/19/20 11:34 11:39 11:44 Temperature Pulse Rate 116 H 120 H 111 H Respiratory Rate Blood Pressure Blood Pressure [Left] O2 Sat by Pulse 99 98 97 Oximetry 08/19/20 08/19/20 08/19/20 11:49 11:54 11:59 Temperature Pulse Rate 108 H 106 H 111 H Respiratory Rate Blood Pressure Blood Pressure [Left] O2 Sat by Pulse 96 97 98 Oximetry 08/19/20 08/19/20 08/19/20 12:04 12:09 12:14 Temperature Pulse Rate 107 H 103 H 105 H Respiratory Rate Blood Pressure Blood Pressure [Left] O2 Sat by Pulse 97 100 99 Oximetry 08/19/20 08/19/20 08/19/20 12:19 12:24 12:29 Temperature Pulse Rate 103 H 104 H 106 H Respiratory Rate Blood Pressure Blood Pressure [Left] O2 Sat by Pulse 98 99 99 Oximetry - Exam Narrative Exam: sitting in bed NAD Abdomen: Present: normal appearance FHR: category 1 Uterine Contraction Pattern: Absent - Labs Labs: Abnormal Labs 08/07/20 08/07/20 08/08/20 13:39 18:35 01:02 RDW 13.1 L Seg Neutrophils % 72.8 H Sodium Carbon Dioxide BUN Creatinine Glucose Calcium Magnesium 4.10 H 5.00 H AST ALT Total Protein Albumin 08/08/20 08/08/20 08/08/20 13:04 17:26 17:26 RDW Seg Neutrophils % Sodium 134 L Carbon Dioxide 17 L BUN 3 L Creatinine 0.5 L Glucose 145 H Calcium 7.2 L Magnesium 5.50 H 5.50 H AST ALT < 5 L Total Protein 6.1 L Albumin 3.8 L 08/09/20 08/09/20 08/09/20 00:31 07:32 12:24 RDW Seg Neutrophils % Sodium Carbon Dioxide BUN Creatinine Glucose Calcium Magnesium 5.50 H 5.30 H 5.50 H AST ALT Total Protein Albumin 08/09/20 08/10/20 08/17/20 18:08 01:07 06:41 RDW Seg Neutrophils % Sodium 134 L Carbon Dioxide BUN Creatinine 0.5 L Glucose 211 H Calcium Magnesium 4.80 H 3.60 H AST < 5 L ALT < 5 L Total Protein Albumin 3.3 L Laboratory Results - last 24 hr 08/19/20 08:30 Gest Glucose Tolerance
--- NOTE | 2020-08-19 16:36 | Event Note ---
Date: 08/19/20 (results of tomorrows cervical length) Dr Lara asks that the results of the vaginal probe US be called to her tomorrow once done. She states there is no indication for cervical exam unless US indicates increased funneling or pt has had ctx. Once she has measurement, decision can be made for outpt mgt. Dr Hickman aware
[2020-08-19] MEDS ORDERED: DEXTROSE 50% IN WATER (25GM) 50 ML SYRINGE IV PRN (16:51)
--- NOTE | 2020-08-19 17:00 | Event Note ---
Date: 08/19/20 (notified by RN of 3hr GTT) Received report that 3hr GTT had 2 abnormal values. Pt is GDM POC blood glucose orders placed and [facility] notified of pt's dx After discussion with Dr Hickman will cancel SSI for now
[2020-08-19] MEDS: diphenhydrAMINE 25 MG CAP PO PRN (22:28)
[2020-08-20] MEDS ORDERED: INSULIN REGULAR, HUMAN 100 UNITS/1 ML SUB-Q SCH (07:30)
--- NOTE | 2020-08-20 07:50 | Progress Note ---
<RUBYSEAN Kevin - Last Filed: 08/20/20 11:34> Assessment and Plan Pt resting, no complaints reviewed plan for today A: 1. IUP at 28+0/7 weeks gestation -s/p BMZ 2. 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 History of PTD x 2 -Intrapartum demise 4. History of Pseudotumor cerebri 5. Chest pain - resolved , GERD, cleared by cardiology 6.GDM -newly diagnosed, diet controlled Rec per [facility]: 1. Continue to monitor for labor , ROM 2. Continue 17OHP injections q wednesday 3. Reevaluate cervical length/dilation today to determine if she is a candidate for outpt management. Call [facility] with u/s findings - Patient Problems (1) Pseudotumor cerebri Current Visit: Yes Status: Chronic (2) Chest pain Current Visit: Yes Status: Resolved Qualifiers: Chest pain type: unspecified Qualified Code(s): R07.9 - Chest pain, unspecified Plan to address problem: resolved (3) Anxiety Current Visit: Yes Status: Chronic Plan to address problem: Zoloft QD (4) 28 weeks gestation of Onset Date: ~08/20/20 Current Visit: Yes Status: Acute (5) labor in third trimester Current Visit: Yes Status: Acute Qualifiers: Fetus number: single or unspecified fetus (6) Gestational diabetes Onset Date: ~08/19/20 Current Visit: Yes Status: Acute Qualifiers: Gestational diabetes mellitus control: diet-controlled Trimester: third trimester Qualified Code(s): O24.410 - Gestational diabetes mellitus in , diet controlled Plan to address problem: Consistent carbohydrate diet ordered Acchecks fasting and 2hr PP MFM to follow Subjective - Subjective Date of service: 08/20/20 Principal diagnosis: IUP @28w 0/7d; labor; steriods complete; 3hr GTT today Interval history: EDC Confirmation: 11/12/2020 Past History : 3 Term Births: 0 Premature Births: 2 Living Children: 1 Para: 2 Mult. Births: 0 Prev : 0 Prev. attempt? 0 Aborta: 0 Elect. Ab: 0 Spont. 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 of genital herpes: no Partner hx. of genital herpes: no Rash, Viral, or Febrile illness since last LMP? no Varicella/Chicken Pox Status: Previous Disease Genetic History Congenital Heart Defect: Mom: no Dad: no Oziel Disease: Mom: no Dad: no Thalassemia Mom: no Dad: no Neural Tube Defect Mom: no Dad: no Down's Syndrome Mom: no Dad: no David-Sachs Mom: no Dad: no Sickle Cell Disease/Trait Mom: yes Dad: no Hemophilia Mom: no Dad: no Muscular Dystrophy Mom: no Dad: no Cystic Fibrosis Mom: no Dad: no [place] Chorea Mom: no Dad: no Mental Retardation Mom: no Dad: no Fragile X Mom: no Dad: no Other Genetic/Chromosomal Disorder Mom: no Dad: no Child w/other defect Mom: no Dad: no Enviromental Exposures Xray Exposure: no Medication, drug, or alcohol use since LMP: no Chemical/Other Exposure: no Exposure to Cat Liter: no Hx of Parvovirus (Fifth Disease): no Occupational Exposure to Children: none Current Allergies: No known allergies Patient reports: movement normal, no new complaints, no loss of fluid, no vaginal bleeding, no contractions Objective - Vital Signs Vital Signs: Vital Signs - 12hr 08/19/20 08/19/20 08/19/20 19:47 19:52 19:57 Temperature Pulse Rate 99 H 104 H 102 H Respiratory Rate Blood Pressure O2 Sat by Pulse 98 99 98 Oximetry 08/19/20 08/19/20 08/19/20 20:02 20:07 20:12 Temperature Pulse Rate 105 H 104 H 99 H Respiratory Rate Blood Pressure O2 Sat by Pulse 98 98 98 Oximetry 08/19/20 08/19/20 08/19/20 20:17 20:23 20:28 Temperature Pulse Rate 118 H 125 H 106 H Respiratory Rate Blood Pressure O2 Sat by Pulse 97 99 99 Oximetry 08/19/20 08/19/20 08/19/20 20:33 20:38 20:43 Temperature Pulse Rate 107 H 109 H 104 H Respiratory Rate Blood Pressure O2 Sat by Pulse 100 99 100 Oximetry 08/19/20 08/19/20 08/19/20 20:48 20:53 20:58 Temperature Pulse Rate 98 H 108 H 102 H Respiratory Rate Blood Pressure O2 Sat by Pulse 100 100 100 Oximetry 08/19/20 08/19/20 08/19/20 21:03 21:08 21:13 Temperature Pulse Rate 98 H 98 H 108 H Respiratory Rate Blood Pressure O2 Sat by Pulse 100 99 100 Oximetry 08/19/20 08/19/20 08/19/20 21:18 21:23 21:28 Temperature Pulse Rate 97 H 96 H 105 H Respiratory Rate Blood Pressure O2 Sat by Pulse 99 99 99 Oximetry 08/19/20 08/19/20 08/19/20 21:33 21:38 21:43 Temperature Pulse Rate 102 H 99 H 109 H Respiratory Rate Blood Pressure O2 Sat by Pulse 99 98 99 Oximetry 08/19/20 08/19/20 08/19/20 21:48 21:53 21:58 Temperature Pulse Rate 104 H 100 H 105 H Respiratory Rate Blood Pressure O2 Sat by Pulse 98 98 98 Oximetry 08/19/20 08/19/20 08/19/20 22:03 22:08 22:13 Temperature Pulse Rate 105 H 113 H 98 H Respiratory Rate Blood Pressure O2 Sat by Pulse 98 99 98 Oximetry 08/19/20 08/19/20 08/19/20 22:18 22:23 22:28 Temperature Pulse Rate 102 H 98 H 102 H Respiratory Rate Blood Pressure O2 Sat by Pulse 97 99 96 Oximetry 08/19/20 08/19/20 08/19/20 22:33 22:38 22:43 Temperature Pulse Rate 115 H 99 H 113 H Respiratory Rate Blood Pressure O2 Sat by Pulse 99 96 99 Oximetry 08/19/20 08/19/20 08/19/20 22:48 22:53 22:58 Temperature Pulse Rate 114 H 127 H 127 H Respiratory Rate Blood Pressure O2 Sat by Pulse 99 99 99 Oximetry 08/19/20 08/19/20 08/19/20 23:03 23:08 23:13 Temperature Pulse Rate 114 H 109 H 127 H Respiratory Rate Blood Pressure O2 Sat by Pulse 98 100 97 Oximetry 08/19/20 08/19/20 08/19/20 23:18 23:23 23:28 Temperature Pulse Rate 124 H 118 H 111 H Respiratory Rate Blood Pressure O2 Sat by Pulse 97 96 98 Oximetry 08/19/20 08/19/20 08/19/20 23:33 23:38 23:43 Temperature Pulse Rate 107 H 113 H 111 H Respiratory Rate Blood Pressure O2 Sat by Pulse 97 97 97 Oximetry 08/19/20 08/19/20 08/19/20 23:48 23:53 23:58 Temperature Pulse Rate 117 H 112 H 124 H Respiratory Rate Blood Pressure O2 Sat by Pulse 97 97 97 Oximetry 08/20/20 08/20/20 08/20/20 00:00 00:03 00:08 Temperature 98.2 F Pulse Rate 109 H 117 H 119 H Respiratory 18 Rate Blood Pressure O2 Sat by Pulse 100 96 96 Oximetry 08/20/20 08/20/20 08/20/20 00:13 00:18 00:23 Temperature Pulse Rate 112 H 118 H 118 H Respiratory Rate Blood Pressure O2 Sat by Pulse 95 96 95 Oximetry 08/20/20 08/20/20 08/20/20 00:28 00:31 00:33 Temperature Pulse Rate 116 H 123 H 115 H Respiratory Rate Blood Pressure O2 Sat by Pulse 94 94 95 Oximetry 08/20/20 08/20/20 08/20/20 00:36 00:38 00:43 Temperature Pulse Rate 118 H 115 H 116 H Respiratory Rate Blood Pressure O2 Sat by Pulse 94 94 94 Oximetry 08/20/20 08/20/20 08/20/20 00:48 00:53 00:58 Temperature Pulse Rate 117 H 141 H 129 H Respiratory Rate Blood Pressure O2 Sat by Pulse 94 95 96 Oximetry 08/20/20 08/20/20 08/20/20 01:03 01:08 01:13 Temperature Pulse Rate 117 H 123 H 118 H Respiratory Rate Blood Pressure O2 Sat by Pulse 97 97 98 Oximetry 08/20/20 08/20/20 08/20/20 01:18 01:23 01:28 Temperature Pulse Rate 119 H 120 H 121 H Respiratory Rate Blood Pressure O2 Sat by Pulse 96 96 98 Oximetry 08/20/20 08/20/20 08/20/20 01:33 01:38 01:43 Temperature Pulse Rate 117 H 116 H 117 H Respiratory Rate Blood Pressure O2 Sat by Pulse 96 97 97 Oximetry 08/20/20 08/20/20 08/20/20 01:48 01:53 01:58 Temperature Pulse Rate 117 H 120 H 119 H Respiratory Rate Blood Pressure O2 Sat by Pulse 96 96 97 Oximetry 08/20/20 08/20/20 08/20/20 02:03 02:05 02:08 Temperature Pulse Rate 124 H 118 H 119 H Respiratory Rate Blood Pressure 100/59 O2 Sat by Pulse 97 96 Oximetry 08/20/20 08/20/20 08/20/20 02:13 02:18 02:23 Temperature Pulse Rate 119 H 119 H 122 H Respiratory Rate Blood Pressure O2 Sat by Pulse 97 96 98 Oximetry 08/20/20 08/20/20 08/20/20 02:28 02:33 02:38 Temperature Pulse Rate 124 H 120 H 120 H Respiratory Rate Blood Pressure O2 Sat by Pulse 97 98 98 Oximetry 08/20/20 08/20/20 08/20/20 02:43 02:48 02:53 Temperature Pulse Rate 135 H 117 H 118 H Respiratory Rate Blood Pressure O2 Sat by Pulse 99 98 97 Oximetry 08/20/20 08/20/20 08/20/20 02:58 03:03 03:08 Temperature Pulse Rate 106 H 118 H 116 H Respiratory Rate Blood Pressure O2 Sat by Pulse 98 98 98 Oximetry 08/20/20 08/20/20 08/20/20 03:13 03:29 03:34 Temperature Pulse Rate 116 H 98 H 109 H Respiratory Rate Blood Pressure O2 Sat by Pulse 98 99 98 Oximetry 08/20/20 08/20/20 08/20/20 03:39 03:44 03:49 Temperature Pulse Rate 108 H 97 H 102 H Respiratory Rate Blood Pressure O2 Sat by Pulse 98 99 98 Oximetry 08/20/20 08/20/20 08/20/20 03:54 03:59 04:04 Temperature Pulse Rate 110 H 113 H 111 H Respiratory Rate Blood Pressure O2 Sat by Pulse 98 98 97 Oximetry 08/20/20 08/20/20 08/20/20 04:09 04:14 04:19 Temperature Pulse Rate 108 H 100 H 109 H Respiratory Rate Blood Pressure O2 Sat by Pulse 99 98 98 Oximetry 08/20/20 08/20/20 08/20/20 04:24 04:29 04:34 Temperature Pulse Rate 96 H 117 H 103 H Respiratory Rate Blood Pressure O2 Sat by Pulse 98 98 98 Oximetry 08/20/20 08/20/20 08/20/20 04:39 04:44 04:49 Temperature Pulse Rate 106 H 103 H 105 H Respiratory Rate Blood Pressure O2 Sat by Pulse 99 97 98 Oximetry 08/20/20 08/20/20 08/20/20 04:54 04:59 05:03 Temperature Pulse Rate 112 H 99 H 108 H Respiratory Rate Blood Pressure O2 Sat by Pulse 98 99 88 Oximetry 08/20/20 08/20/20 08/20/20 05:04 05:09 05:14 Temperature Pulse Rate 104 H 107 H 105 H Respiratory Rate Blood Pressure O2 Sat by Pulse 100 98 98 Oximetry 08/20/20 08/20/20 08/20/20 05:19 05:24 05:29 Temperature Pulse Rate 104 H 105 H 104 H Respiratory Rate Blood Pressure O2 Sat by Pulse 97 98 97 Oximetry 08/20/20 08/20/20 08/20/20 05:34 05:39 05:44 Temperature Pulse Rate 107 H 103 H 108 H Respiratory Rate Blood Pressure O2 Sat by Pulse 97 98 98 Oximetry 08/20/20 08/20/20 08/20/20 05:49 05:54 05:59 Temperature Pulse Rate 105 H 103 H 110 H Respiratory Rate Blood Pressure O2 Sat by Pulse 98 98 98 Oximetry 08/20/20 08/20/20 08/20/20 06:04 06:09 06:14 Temperature Pulse Rate 107 H 107 H 127 H Respiratory Rate Blood Pressure O2 Sat by Pulse 97 97 97 Oximetry 08/20/20 08/20/20 08/20/20 06:19 06:24 06:29 Temperature Pulse Rate 110 H 106 H 112 H Respiratory Rate Blood Pressure O2 Sat by Pulse 97 97 97 Oximetry 08/20/20 08/20/20 08/20/20 06:34 06:39 06:44 Temperature Pulse Rate 128 H 116 H 121 H Respiratory Rate Blood Pressure O2 Sat by Pulse 99 98 98 Oximetry 08/20/20 08/20/20 08/20/20 06:49 06:54 06:59 Temperature Pulse Rate 115 H 122 H 101 H Respiratory Rate Blood Pressure O2 Sat by Pulse 98 97 97 Oximetry 08/20/20 08/20/20 08/20/20 07:04 07:09 07:14 Temperature Pulse Rate 112 H 109 H 115 H Respiratory Rate Blood Pressure O2 Sat by Pulse 98 98 98 Oximetry 08/20/20 08/20/20 08/20/20 07:19 07:24 07:29 Temperature Pulse Rate 113 H 111 H 110 H Respiratory Rate Blood Pressure O2 Sat by Pulse 98 99 98 Oximetry 08/20/20 08/20/20 08/20/20 07:34 07:39 07:44 Temperature Pulse Rate 112 H 109 H 113 H Respiratory Rate Blood Pressure O2 Sat by Pulse 98 98 98 Oximetry - Exam Cardiovascular: Regular rate Lungs: Clear to auscultation, Normal air movement Abdomen: Present: normal appearance, soft Vulva: both: normal Uterus: Present: normal FHR: auscultation normal Uterine Contraction Monitor Mode: External Uterine Contraction Pattern: Absent Uterine Tone Measurement Phase: Resting Extremities: normal Deep Tendon Reflex Grade: Normal +2 - Labs Labs: Abnormal Labs 08/07/20 08/07/20 08/08/20 13:39 18:35 01:02 RDW 13.1 L Seg Neutrophils % 72.8 H Sodium Carbon Dioxide BUN Creatinine Glucose POC Glucose Calcium Magnesium 4.10 H 5.00 H AST ALT Total Protein Albumin 08/08/20 08/08/20 08/08/20 13:04 17:26 17:26 RDW Seg Neutrophils % Sodium 134 L Carbon Dioxide 17 L BUN 3 L Creatinine 0.5 L Glucose 145 H POC Glucose Calcium 7.2 L Magnesium 5.50 H 5.50 H AST ALT < 5 L Total Protein 6.1 L Albumin 3.8 L 08/09/20 08/09/20 08/09/20 00:31 07:32 12:24 RDW Seg Neutrophils % Sodium Carbon Dioxide BUN Creatinine Glucose POC Glucose Calcium Magnesium 5.50 H 5.30 H 5.50 H AST ALT Total Protein Albumin 08/09/20 08/10/20 08/17/20 18:08 01:07 06:41 RDW Seg Neutrophils % Sodium 134 L Carbon Dioxide BUN Creatinine 0.5 L Glucose 211 H POC Glucose Calcium Magnesium 4.80 H 3.60 H AST < 5 L ALT < 5 L Total Protein Albumin 3.3 L 08/19/20 08/20/20 17:45 02:03 RDW Seg Neutrophils % Sodium Carbon Dioxide BUN Creatinine Glucose POC Glucose 107 H 126 H Calcium Magnesium AST ALT Total Protein Albumin Laboratory Results - last 24 hr 08/19/20 08/19/20 08/19/20 08:30 17:45 22:05 POC Glucose 107 H 85 Gest Glucose Tolerance 08/20/20 08/20/20 02:03 06:33 POC Glucose 126 H 95 Gest Glucose Tolerance <SUZI HANNON D - Last Filed: 08/20/20 13:05> Assessment and Plan Diabetic teaching and nutrition counseling ordered. TSH( normal) , Free T4 (normal), Free T3 (pending) ordered d/t tachycardia US results pending - Patient Problems (1) 28 weeks gestation of Onset Date: ~08/20/20 Current Visit: Yes Status: Acute (2) labor in third trimester Current Visit: Yes Status: Acute Qualifiers: Fetus number: single or unspecified fetus (3) Chest pain Current Visit: Yes Status: Resolved Qualifiers: Chest pain type: unspecified Qualified Code(s): R07.9 - Chest pain, unspecified (4) Pseudotumor cerebri Current Visit: Yes Status: Chronic (5) Sickle cell trait Current Visit: Yes Status: Chronic (6) Gestational diabetes Onset Date: ~08/19/20 Current Visit: Yes Status: Acute Qualifiers: Trimester: third trimester (7) Anxiety Current Visit: Yes Status: Chronic Objective - Vital Signs Vital Signs: Vital Signs - 12hr 08/20/20 08/20/20 08/20/20 01:03 01:08 01:13 Temperature Pulse Rate 117 H 123 H 118 H Respiratory Rate Blood Pressure Blood Pressure [Left] O2 Sat by Pulse 97 97 98 Oximetry 08/20/20 08/20/20 08/20/20 01:18 01:23 01:28 Temperature Pulse Rate 119 H 120 H 121 H Respiratory Rate Blood Pressure Blood Pressure [Left] O2 Sat by Pulse 96 96 98 Oximetry 08/20/20 08/20/20 08/20/20 01:33 01:38 01:43 Temperature Pulse Rate 117 H 116 H 117 H Respiratory Rate Blood Pressure Blood Pressure [Left] O2 Sat by Pulse 96 97 97 Oximetry 08/20/20 08/20/20 08/20/20 01:48 01:53 01:58 Temperature Pulse Rate 117 H 120 H 119 H Respiratory Rate Blood Pressure Blood Pressure [Left] O2 Sat by Pulse 96 96 97 Oximetry 08/20/20 08/20/20 08/20/20 02:03 02:05 02:08 Temperature Pulse Rate 124 H 118 H 119 H Respiratory Rate Blood Pressure 100/59 Blood Pressure [Left] O2 Sat by Pulse 97 96 Oximetry 08/20/20 08/20/20 08/20/20 02:13 02:18 02:23 Temperature Pulse Rate 119 H 119 H 122 H Respiratory Rate Blood Pressure Blood Pressure [Left] O2 Sat by Pulse 97 96 98 Oximetry 08/20/20 08/20/20 08/20/20 02:28 02:33 02:38 Temperature Pulse Rate 124 H 120 H 120 H Respiratory Rate Blood Pressure Blood Pressure [Left] O2 Sat by Pulse 97 98 98 Oximetry 08/20/20 08/20/20 08/20/20 02:43 02:48 02:53 Temperature Pulse Rate 135 H 117 H 118 H Respiratory Rate Blood Pressure Blood Pressure [Left] O2 Sat by Pulse 99 98 97 Oximetry 08/20/20 08/20/20 08/20/20 02:58 03:03 03:08 Temperature Pulse Rate 106 H 118 H 116 H Respiratory Rate Blood Pressure Blood Pressure [Left] O2 Sat by Pulse 98 98 98 Oximetry 08/20/20 08/20/20 08/20/20 03:13 03:29 03:34 Temperature Pulse Rate 116 H 98 H 109 H Respiratory Rate Blood Pressure Blood Pressure [Left] O2 Sat by Pulse 98 99 98 Oximetry 08/20/20 08/20/20 08/20/20 03:39 03:44 03:49 Temperature Pulse Rate 108 H 97 H 102 H Respiratory Rate Blood Pressure Blood Pressure [Left] O2 Sat by Pulse 98 99 98 Oximetry 08/20/20 08/20/20 08/20/20 03:54 03:59 04:04 Temperature Pulse Rate 110 H 113 H 111 H Respiratory Rate Blood Pressure Blood Pressure [Left] O2 Sat by Pulse 98 98 97 Oximetry 08/20/20 08/20/20 08/20/20 04:09 04:14 04:19 Temperature Pulse Rate 108 H 100 H 109 H Respiratory Rate Blood Pressure Blood Pressure [Left] O2 Sat by Pulse 99 98 98 Oximetry 08/20/20 08/20/20 08/20/20 04:24 04:29 04:34 Temperature Pulse Rate 96 H 117 H 103 H Respiratory Rate Blood Pressure Blood Pressure [Left] O2 Sat by Pulse 98 98 98 Oximetry 08/20/20 08/20/20 08/20/20 04:39 04:44 04:49 Temperature Pulse Rate 106 H 103 H 105 H Respiratory Rate Blood Pressure Blood Pressure [Left] O2 Sat by Pulse 99 97 98 Oximetry 08/20/20 08/20/20 08/20/20 04:54 04:59 05:03 Temperature Pulse Rate 112 H 99 H 108 H Respiratory Rate Blood Pressure Blood Pressure [Left] O2 Sat by Pulse 98 99 88 Oximetry 08/20/20 08/20/20 08/20/20 05:04 05:09 05:14 Temperature Pulse Rate 104 H 107 H 105 H Respiratory Rate Blood Pressure Blood Pressure [Left] O2 Sat by Pulse 100 98 98 Oximetry 08/20/20 08/20/20 08/20/20 05:19 05:24 05:29 Temperature Pulse Rate 104 H 105 H 104 H Respiratory Rate Blood Pressure Blood Pressure [Left] O2 Sat by Pulse 97 98 97 Oximetry 08/20/20 08/20/20 08/20/20 05:34 05:39 05:44 Temperature Pulse Rate 107 H 103 H 108 H Respiratory Rate Blood Pressure Blood Pressure [Left] O2 Sat by Pulse 97 98 98 Oximetry 08/20/20 08/20/20 08/20/20 05:49 05:54 05:59 Temperature Pulse Rate 105 H 103 H 110 H Respiratory Rate Blood Pressure Blood Pressure [Left] O2 Sat by Pulse 98 98 98 Oximetry 08/20/20 08/20/20 08/20/20 06:04 06:09 06:14 Temperature Pulse Rate 107 H 107 H 127 H Respiratory Rate Blood Pressure Blood Pressure [Left] O2 Sat by Pulse 97 97 97 Oximetry 08/20/20 08/20/20 08/20/20 06:19 06:24 06:29 Temperature Pulse Rate 110 H 106 H 112 H Respiratory Rate Blood Pressure Blood Pressure [Left] O2 Sat by Pulse 97 97 97 Oximetry 08/20/20 08/20/20 08/20/20 06:34 06:39 06:44 Temperature Pulse Rate 128 H 116 H 121 H Respiratory Rate Blood Pressure Blood Pressure [Left] O2 Sat by Pulse 99 98 98 Oximetry 08/20/20 08/20/20 08/20/20 06:49 06:54 06:59 Temperature Pulse Rate 115 H 122 H 101 H Respiratory Rate Blood Pressure Blood Pressure [Left] O2 Sat by Pulse 98 97 97 Oximetry 08/20/20 08/20/20 08/20/20 07:04 07:09 07:14 Temperature Pulse Rate 112 H 109 H 115 H Respiratory Rate Blood Pressure Blood Pressure [Left] O2 Sat by Pulse 98 98 98 Oximetry 08/20/20 08/20/20 08/20/20 07:19 07:24 07:29 Temperature Pulse Rate 113 H 111 H 110 H Respiratory Rate Blood Pressure Blood Pressure [Left] O2 Sat by Pulse 98 99 98 Oximetry 08/20/20 08/20/20 08/20/20 07:34 07:39 07:44 Temperature Pulse Rate 112 H 109 H 113 H Respiratory Rate Blood Pressure Blood Pressure [Left] O2 Sat by Pulse 98 98 98 Oximetry 08/20/20 08/20/20 08/20/20 07:49 07:54 07:59 Temperature Pulse Rate 110 H 110 H 104 H Respiratory Rate Blood Pressure Blood Pressure [Left] O2 Sat by Pulse 98 98 98 Oximetry 08/20/20 08/20/20 08/20/20 08:04 08:09 08:20 Temperature Pulse Rate 109 H 111 H 117 H Respiratory Rate Blood Pressure Blood Pressure [Left] O2 Sat by Pulse 98 99 98 Oximetry 08/20/20 08/20/20 08/20/20 08:25 08:30 08:35 Temperature Pulse Rate 109 H 117 H 104 H Respiratory Rate Blood Pressure Blood Pressure [Left] O2 Sat by Pulse 98 98 99 Oximetry 08/20/20 08/20/20 08/20/20 08:40 08:45 08:50 Temperature Pulse Rate 104 H 109 H 100 H Respiratory Rate Blood Pressure Blood Pressure [Left] O2 Sat by Pulse 99 99 99 Oximetry 08/20/20 08/20/20 08/20/20 08:55 09:00 09:05 Temperature Pulse Rate 105 H 124 H 106 H Respiratory Rate Blood Pressure Blood Pressure [Left] O2 Sat by Pulse 99 97 98 Oximetry 08/20/20 08/20/20 08/20/20 09:10 09:15 09:20 Temperature Pulse Rate 115 H 112 H 108 H Respiratory Rate Blood Pressure Blood Pressure [Left] O2 Sat by Pulse 98 98 99 Oximetry 08/20/20 08/20/20 08/20/20 09:25 09:30 09:32 Temperature Pulse Rate 119 H 109 H 77 Respiratory Rate Blood Pressure Blood Pressure [Left] O2 Sat by Pulse 99 100 82 L Oximetry 08/20/20 08/20/20 08/20/20 09:37 09:50 09:51 Temperature Pulse Rate 72 109 H Respiratory Rate Blood Pressure Blood Pressure [Left] O2 Sat by Pulse 89 84 97 Oximetry 08/20/20 08/20/20 08/20/20 09:56 10:01 10:06 Temperature Pulse Rate 114 H 103 H 109 H Respiratory Rate Blood Pressure Blood Pressure [Left] O2 Sat by Pulse 97 98 95 Oximetry 08/20/20 08/20/20 08/20/20 10:09 10:10 10:11 Temperature 98.0 F Pulse Rate 102 H 100 H 102 H Respiratory 16 Rate Blood Pressure 108/71 Blood Pressure 108/71 [Left] O2 Sat by Pulse 98 98 Oximetry 08/20/20 08/20/20 08/20/20 10:16 10:21 10:26 Temperature Pulse Rate 101 H 104 H 98 H Respiratory Rate Blood Pressure Blood Pressure [Left] O2 Sat by Pulse 96 96 97 Oximetry 08/20/20 08/20/20 08/20/20 10:31 10:36 10:41 Temperature Pulse Rate 104 H 100 H 107 H Respiratory Rate Blood Pressure Blood Pressure [Left] O2 Sat by Pulse 97 97 97 Oximetry 08/20/20 08/20/20 08/20/20 10:46 10:51 10:56 Temperature Pulse Rate 106 H 102 H 103 H Respiratory Rate Blood Pressure Blood Pressure [Left] O2 Sat by Pulse 97 96 96 Oximetry 08/20/20 08/20/20 08/20/20 11:01 11:06 11:11 Temperature Pulse Rate 106 H 106 H 99 H Respiratory Rate Blood Pressure Blood Pressure [Left] O2 Sat by Pulse 96 95 96 Oximetry 08/20/20 08/20/20 11:16 11:21 Temperature Pulse Rate 98 H 98 H Respiratory Rate Blood Pressure Blood Pressure [Left] O2 Sat by Pulse 95 94 Oximetry - Labs Labs: Abnormal Labs 08/07/20 08/07/20 08/08/20 13:39 18:35 01:02 RDW 13.1 L Seg Neutrophils % 72.8 H Sodium Carbon Dioxide BUN Creatinine Glucose POC Glucose Calcium Magnesium 4.10 H 5.00 H AST ALT Total Protein Albumin 08/08/20 08/08/20 08/08/20 13:04 17:26 17:26 RDW Seg Neutrophils % Sodium 134 L Carbon Dioxide 17 L BUN 3 L Creatinine 0.5 L Glucose 145 H POC Glucose Calcium 7.2 L Magnesium 5.50 H 5.50 H AST ALT < 5 L Total Protein 6.1 L Albumin 3.8 L 08/09/20 08/09/20 08/09/20 00:31 07:32 12:24 RDW Seg Neutrophils % Sodium Carbon Dioxide BUN Creatinine Glucose POC Glucose Calcium Magnesium 5.50 H 5.30 H 5.50 H AST ALT Total Protein Albumin 08/09/20 08/10/20 08/17/20 18:08 01:07 06:41 RDW Seg Neutrophils % Sodium 134 L Carbon Dioxide BUN Creatinine 0.5 L Glucose 211 H POC Glucose Calcium Magnesium 4.80 H 3.60 H AST < 5 L ALT < 5 L Total Protein Albumin 3.3 L 08/19/20 08/20/20 17:45 02:03 RDW Seg Neutrophils % Sodium Carbon Dioxide BUN Creatinine Glucose POC Glucose 107 H 126 H Calcium Magnesium AST ALT Total Protein Albumin Laboratory Results - last 24 hr 08/19/20 08/19/20 08/19/20 08:30 17:45 22:05 POC Glucose 107 H 85 Gest Glucose Tolerance TSH Free T4 08/20/20 08/20/20 08/20/20 02:03 06:33 10:38 POC Glucose 126 H 95 Gest Glucose Tolerance TSH Free T4 0.81 08/20/20 10:38 POC Glucose Gest Glucose Tolerance TSH 2.050 Free T4
[2020-08-20 10:11] VITALS: BP 108/71
[2020-08-20] MEDS: PRENATAL VIT27-FE FUMARATE-FOLIC ACID VIT TAB PO SCH (10:11)
[2020-08-20] MEDS: FAMOTIDINE 20 MG TAB PO SCH (10:12)
[2020-08-20] MEDS: SERTRALINE 50 MG TAB PO SCH (10:12)
--- NOTE | 2020-08-20 12:57 | Progress Note ---
Assessment and Plan A: A: 1. IUP at 28 0/7 weeks gestation s/p BMZ 2. 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 History of PTD x 2 Intrapartum demise 4. History of Pseudotumor cerebri 5. Chest pain , resolved , GERD cleared by cardiology 6. GDM Rec: 1. Continue to monitor for labor , ROM 2. Continue 17OHP injections q wednesday 3. Images reviewed . Discussed with Sravanthi . Radiology will return to perform a trans-vaginal US to assess the cervical length 4. GDM counseling performed Advised of the need for fasting and 2 hr PP accuchecks, goal Fasting <95mg/dl, 2 hr PP goal <120mg/dl Discussed ADA diet, avoidance of simple sugars, reduction in simple carbohydrates, and increased protein and complex carbohydrates Pt will need nutritional counseling while admitted Should be d/c to home with a glucometer and testing supplies when discharged Reviewed potential complications associated with uncontrolled GDM including macrosomia, distress, demise All questions were answered and they stated understanding Subjective - Subjective Date of service: 08/20/20 Principal diagnosis: IUP @28w 1/7d; labor; steriods complete; 3hr GTT today Interval history: Has no complaints Denied contractions,bleeding, LOF s/p translabial US - images reviewed She has a new diagnosis of GDM Patient reports: movement normal, no new complaints, no loss of fluid, no vaginal bleeding, no contractions Objective - Vital Signs Vital Signs: Vital Signs - 12hr 08/20/20 08/20/20 08/20/20 00:58 01:03 01:08 Temperature Pulse Rate 129 H 117 H 123 H Respiratory Rate Blood Pressure Blood Pressure [Left] O2 Sat by Pulse 96 97 97 Oximetry 08/20/20 08/20/20 08/20/20 01:13 01:18 01:23 Temperature Pulse Rate 118 H 119 H 120 H Respiratory Rate Blood Pressure Blood Pressure [Left] O2 Sat by Pulse 98 96 96 Oximetry 08/20/20 08/20/20 08/20/20 01:28 01:33 01:38 Temperature Pulse Rate 121 H 117 H 116 H Respiratory Rate Blood Pressure Blood Pressure [Left] O2 Sat by Pulse 98 96 97 Oximetry 08/20/20 08/20/20 08/20/20 01:43 01:48 01:53 Temperature Pulse Rate 117 H 117 H 120 H Respiratory Rate Blood Pressure Blood Pressure [Left] O2 Sat by Pulse 97 96 96 Oximetry 08/20/20 08/20/20 08/20/20 01:58 02:03 02:05 Temperature Pulse Rate 119 H 124 H 118 H Respiratory Rate Blood Pressure 100/59 Blood Pressure [Left] O2 Sat by Pulse 97 97 Oximetry 08/20/20 08/20/20 08/20/20 02:08 02:13 02:18 Temperature Pulse Rate 119 H 119 H 119 H Respiratory Rate Blood Pressure Blood Pressure [Left] O2 Sat by Pulse 96 97 96 Oximetry 08/20/20 08/20/20 08/20/20 02:23 02:28 02:33 Temperature Pulse Rate 122 H 124 H 120 H Respiratory Rate Blood Pressure Blood Pressure [Left] O2 Sat by Pulse 98 97 98 Oximetry 08/20/20 08/20/20 08/20/20 02:38 02:43 02:48 Temperature Pulse Rate 120 H 135 H 117 H Respiratory Rate Blood Pressure Blood Pressure [Left] O2 Sat by Pulse 98 99 98 Oximetry 08/20/20 08/20/20 08/20/20 02:53 02:58 03:03 Temperature Pulse Rate 118 H 106 H 118 H Respiratory Rate Blood Pressure Blood Pressure [Left] O2 Sat by Pulse 97 98 98 Oximetry 08/20/20 08/20/20 08/20/20 03:08 03:13 03:29 Temperature Pulse Rate 116 H 116 H 98 H Respiratory Rate Blood Pressure Blood Pressure [Left] O2 Sat by Pulse 98 98 99 Oximetry 08/20/20 08/20/20 08/20/20 03:34 03:39 03:44 Temperature Pulse Rate 109 H 108 H 97 H Respiratory Rate Blood Pressure Blood Pressure [Left] O2 Sat by Pulse 98 98 99 Oximetry 08/20/20 08/20/20 08/20/20 03:49 03:54 03:59 Temperature Pulse Rate 102 H 110 H 113 H Respiratory Rate Blood Pressure Blood Pressure [Left] O2 Sat by Pulse 98 98 98 Oximetry 08/20/20 08/20/20 08/20/20 04:04 04:09 04:14 Temperature Pulse Rate 111 H 108 H 100 H Respiratory Rate Blood Pressure Blood Pressure [Left] O2 Sat by Pulse 97 99 98 Oximetry 08/20/20 08/20/20 08/20/20 04:19 04:24 04:29 Temperature Pulse Rate 109 H 96 H 117 H Respiratory Rate Blood Pressure Blood Pressure [Left] O2 Sat by Pulse 98 98 98 Oximetry 08/20/20 08/20/20 08/20/20 04:34 04:39 04:44 Temperature Pulse Rate 103 H 106 H 103 H Respiratory Rate Blood Pressure Blood Pressure [Left] O2 Sat by Pulse 98 99 97 Oximetry 08/20/20 08/20/20 08/20/20 04:49 04:54 04:59 Temperature Pulse Rate 105 H 112 H 99 H Respiratory Rate Blood Pressure Blood Pressure [Left] O2 Sat by Pulse 98 98 99 Oximetry 08/20/20 08/20/20 08/20/20 05:03 05:04 05:09 Temperature Pulse Rate 108 H 104 H 107 H Respiratory Rate Blood Pressure Blood Pressure [Left] O2 Sat by Pulse 88 100 98 Oximetry 08/20/20 08/20/20 08/20/20 05:14 05:19 05:24 Temperature Pulse Rate 105 H 104 H 105 H Respiratory Rate Blood Pressure Blood Pressure [Left] O2 Sat by Pulse 98 97 98 Oximetry 08/20/20 08/20/20 08/20/20 05:29 05:34 05:39 Temperature Pulse Rate 104 H 107 H 103 H Respiratory Rate Blood Pressure Blood Pressure [Left] O2 Sat by Pulse 97 97 98 Oximetry 08/20/20 08/20/20 08/20/20 05:44 05:49 05:54 Temperature Pulse Rate 108 H 105 H 103 H Respiratory Rate Blood Pressure Blood Pressure [Left] O2 Sat by Pulse 98 98 98 Oximetry 08/20/20 08/20/20 08/20/20 05:59 06:04 06:09 Temperature Pulse Rate 110 H 107 H 107 H Respiratory Rate Blood Pressure Blood Pressure [Left] O2 Sat by Pulse 98 97 97 Oximetry 08/20/20 08/20/20 08/20/20 06:14 06:19 06:24 Temperature Pulse Rate 127 H 110 H 106 H Respiratory Rate Blood Pressure Blood Pressure [Left] O2 Sat by Pulse 97 97 97 Oximetry 08/20/20 08/20/20 08/20/20 06:29 06:34 06:39 Temperature Pulse Rate 112 H 128 H 116 H Respiratory Rate Blood Pressure Blood Pressure [Left] O2 Sat by Pulse 97 99 98 Oximetry 08/20/20 08/20/20 08/20/20 06:44 06:49 06:54 Temperature Pulse Rate 121 H 115 H 122 H Respiratory Rate Blood Pressure Blood Pressure [Left] O2 Sat by Pulse 98 98 97 Oximetry 08/20/20 08/20/20 08/20/20 06:59 07:04 07:09 Temperature Pulse Rate 101 H 112 H 109 H Respiratory Rate Blood Pressure Blood Pressure [Left] O2 Sat by Pulse 97 98 98 Oximetry 08/20/20 08/20/20 08/20/20 07:14 07:19 07:24 Temperature Pulse Rate 115 H 113 H 111 H Respiratory Rate Blood Pressure Blood Pressure [Left] O2 Sat by Pulse 98 98 99 Oximetry 08/20/20 08/20/20 08/20/20 07:29 07:34 07:39 Temperature Pulse Rate 110 H 112 H 109 H Respiratory Rate Blood Pressure Blood Pressure [Left] O2 Sat by Pulse 98 98 98 Oximetry 08/20/20 08/20/20 08/20/20 07:44 07:49 07:54 Temperature Pulse Rate 113 H 110 H 110 H Respiratory Rate Blood Pressure Blood Pressure [Left] O2 Sat by Pulse 98 98 98 Oximetry 08/20/20 08/20/20 08/20/20 07:59 08:04 08:09 Temperature Pulse Rate 104 H 109 H 111 H Respiratory Rate Blood Pressure Blood Pressure [Left] O2 Sat by Pulse 98 98 99 Oximetry 08/20/20 08/20/20 08/20/20 08:20 08:25 08:30 Temperature Pulse Rate 117 H 109 H 117 H Respiratory Rate Blood Pressure Blood Pressure [Left] O2 Sat by Pulse 98 98 98 Oximetry 08/20/20 08/20/20 08/20/20 08:35 08:40 08:45 Temperature Pulse Rate 104 H 104 H 109 H Respiratory Rate Blood Pressure Blood Pressure [Left] O2 Sat by Pulse 99 99 99 Oximetry 08/20/20 08/20/20 08/20/20 08:50 08:55 09:00 Temperature Pulse Rate 100 H 105 H 124 H Respiratory Rate Blood Pressure Blood Pressure [Left] O2 Sat by Pulse 99 99 97 Oximetry 08/20/20 08/20/20 08/20/20 09:05 09:10 09:15 Temperature Pulse Rate 106 H 115 H 112 H Respiratory Rate Blood Pressure Blood Pressure [Left] O2 Sat by Pulse 98 98 98 Oximetry 08/20/20 08/20/20 08/20/20 09:20 09:25 09:30 Temperature Pulse Rate 108 H 119 H 109 H Respiratory Rate Blood Pressure Blood Pressure [Left] O2 Sat by Pulse 99 99 100 Oximetry 08/20/20 08/20/20 08/20/20 09:32 09:37 09:50 Temperature Pulse Rate 77 72 Respiratory Rate Blood Pressure Blood Pressure [Left] O2 Sat by Pulse 82 L 89 84 Oximetry 08/20/20 08/20/20 08/20/20 09:51 09:56 10:01 Temperature Pulse Rate 109 H 114 H 103 H Respiratory Rate Blood Pressure Blood Pressure [Left] O2 Sat by Pulse 97 97 98 Oximetry 08/20/20 08/20/20 08/20/20 10:06 10:09 10:10 Temperature 98.0 F Pulse Rate 109 H 102 H 100 H Respiratory 16 Rate Blood Pressure 108/71 Blood Pressure 108/71 [Left] O2 Sat by Pulse 95 98 Oximetry 08/20/20 08/20/20 08/20/20 10:11 10:16 10:21 Temperature Pulse Rate 102 H 101 H 104 H Respiratory Rate Blood Pressure Blood Pressure [Left] O2 Sat by Pulse 98 96 96 Oximetry 08/20/20 08/20/20 08/20/20 10:26 10:31 10:36 Temperature Pulse Rate 98 H 104 H 100 H Respiratory Rate Blood Pressure Blood Pressure [Left] O2 Sat by Pulse 97 97 97 Oximetry 08/20/20 08/20/20 08/20/20 10:41 10:46 10:51 Temperature Pulse Rate 107 H 106 H 102 H Respiratory Rate Blood Pressure Blood Pressure [Left] O2 Sat by Pulse 97 97 96 Oximetry 08/20/20 08/20/20 08/20/20 10:56 11:01 11:06 Temperature Pulse Rate 103 H 106 H 106 H Respiratory Rate Blood Pressure Blood Pressure [Left] O2 Sat by Pulse 96 96 95 Oximetry 08/20/20 08/20/20 08/20/20 11:11 11:16 11:21 Temperature Pulse Rate 99 H 98 H 98 H Respiratory Rate Blood Pressure Blood Pressure [Left] O2 Sat by Pulse 96 95 94 Oximetry - Exam Narrative Exam: NAD laying in bed Abdomen: Present: normal appearance FHR: category 1 Uterine Contraction Pattern: Absent Extremities: normal - Labs Labs: Abnormal Labs 08/07/20 08/07/20 08/08/20 13:39 18:35 01:02 RDW 13.1 L Seg Neutrophils % 72.8 H Sodium Carbon Dioxide BUN Creatinine Glucose POC Glucose Calcium Magnesium 4.10 H 5.00 H AST ALT Total Protein Albumin 08/08/20 08/08/20 08/08/20 13:04 17:26 17:26 RDW Seg Neutrophils % Sodium 134 L Carbon Dioxide 17 L BUN 3 L Creatinine 0.5 L Glucose 145 H POC Glucose Calcium 7.2 L Magnesium 5.50 H 5.50 H AST ALT < 5 L Total Protein 6.1 L Albumin 3.8 L 08/09/20 08/09/20 08/09/20 00:31 07:32 12:24 RDW Seg Neutrophils % Sodium Carbon Dioxide BUN Creatinine Glucose POC Glucose Calcium Magnesium 5.50 H 5.30 H 5.50 H AST ALT Total Protein Albumin 08/09/20 08/10/20 08/17/20 18:08 01:07 06:41 RDW Seg Neutrophils % Sodium 134 L Carbon Dioxide BUN Creatinine 0.5 L Glucose 211 H POC Glucose Calcium Magnesium 4.80 H 3.60 H AST < 5 L ALT < 5 L Total Protein Albumin 3.3 L 08/19/20 08/20/20 17:45 02:03 RDW Seg Neutrophils % Sodium Carbon Dioxide BUN Creatinine Glucose POC Glucose 107 H 126 H Calcium Magnesium AST ALT Total Protein Albumin Laboratory Results - last 24 hr 08/19/20 08/19/20 08/19/20 08:30 17:45 22:05 POC Glucose 107 H 85 Gest Glucose Tolerance TSH Free T4 08/20/20 08/20/20 08/20/20 02:03 06:33 10:38 POC Glucose 126 H 95 Gest Glucose Tolerance TSH Free T4 0.81 08/20/20 10:38 POC Glucose Gest Glucose Tolerance TSH 2.050 Free T4 - Results US- obstetric: image reviewed
--- NOTE | 2020-08-20 14:22 | Ultrasound Report ---
US OB transvaginal INDICATION / CLINICAL INFORMATION: CL - TRANSVAGINAL. COMPARISON: Ultrasound 08/07/2020. FINDINGS: There is cervical funneling, the cervix is widened at the internal os measuring 2.6 cm. At the herb digger al os, there is widening measuring 0.7 cm. IMPRESSION: 1. Cervical funneling as above. This is similar to the prior exam from 08/07/2020. Signer Name: Jeffrey Pefiffer MD Signed: 08/20/2020 2:18 PM Workstation Name: [id number]
--- NOTE | 2020-08-20 14:38 | Ultrasound Report ---
Limited OB ultrasound INDICATION: Evaluate cervical length FINDINGS: Transabdominal and translabial imaging was performed. Intrauterine is noted. heart rate is 151 bpm. Cervix measures 1.7 cm in length. IMPRESSION: Cervix appears shortened measuring 1.7 cm in length. Signer Name: Jan Perea MD Signed: 08/20/2020 2:33 PM Workstation Name: [id number]
--- NOTE | 2020-08-20 16:07 | Progress Note ---
Assessment and Plan Reviewed u/s images with Dr. Lara, she advised a spec exam and if membranes not visible then SVE. reported findings to her. She states patient can go home on complete bedrest or, if she feels more comfortable, she may stay in house. Patient informed of options and states she would like to go home. d/c teaching provided. will send rx glucometer and zoloft. Patient verbalizes understand to return to [facility] for any s/s of labor. - Patient Problems (1) Pseudotumor cerebri Current Visit: Yes Status: Chronic (2) Chest pain Current Visit: Yes Status: Resolved Qualifiers: Chest pain type: unspecified Qualified Code(s): R07.9 - Chest pain, unspecified (3) Anxiety Current Visit: Yes Status: Chronic (4) 28 weeks gestation of Onset Date: ~08/20/20 Current Visit: Yes Status: Acute (5) labor in third trimester Current Visit: Yes Status: Acute Qualifiers: Fetus number: single or unspecified fetus (6) Gestational diabetes Onset Date: ~08/19/20 Current Visit: Yes Status: Acute Qualifiers: Trimester: third trimester Subjective - Subjective Date of service: 08/20/20 Principal diagnosis: IUP @28w 1/7d; labor; steriods complete; Interval history: EDC Confirmation: 11/12/2020 Past History : 3 Term Births: 0 Premature Births: 2 Living Children: 1 Para: 2 Mult. Births: 0 Prev : 0 Prev. attempt? 0 Aborta: 0 Elect. Ab: 0 Spont. 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 of genital herpes: no Partner hx. of genital herpes: no Rash, Viral, or Febrile illness since last LMP? no Varicella/Chicken Pox Status: Previous Disease Genetic History Congenital Heart Defect: Mom: no Dad: no Oziel Disease: Mom: no Dad: no Thalassemia Mom: no Dad: no Neural Tube Defect Mom: no Dad: no Down's Syndrome Mom: no Dad: no David-Sachs Mom: no Dad: no Sickle Cell Disease/Trait Mom: yes Dad: no Hemophilia Mom: no Dad: no Muscular Dystrophy Mom: no Dad: no Cystic Fibrosis Mom: no Dad: no [place] Chorea Mom: no Dad: no Mental Retardation Mom: no Dad: no Fragile X Mom: no Dad: no Other Genetic/Chromosomal Disorder Mom: no Dad: no Child w/other defect Mom: no Dad: no Enviromental Exposures Xray Exposure: no Medication, drug, or alcohol use since LMP: no Chemical/Other Exposure: no Exposure to Cat Liter: no Hx of Parvovirus (Fifth Disease): no Occupational Exposure to Children: none Current Allergies: No known allergies Patient reports: movement normal, no new complaints, no loss of fluid, no vaginal bleeding, no contractions Objective - Vital Signs Vital Signs: Vital Signs - 12hr 08/20/20 08/20/20 08/20/20 04:09 04:14 04:19 Temperature Pulse Rate 108 H 100 H 109 H Respiratory Rate Blood Pressure Blood Pressure [Left] O2 Sat by Pulse 99 98 98 Oximetry 08/20/20 08/20/20 08/20/20 04:24 04:29 04:34 Temperature Pulse Rate 96 H 117 H 103 H Respiratory Rate Blood Pressure Blood Pressure [Left] O2 Sat by Pulse 98 98 98 Oximetry 08/20/20 08/20/20 08/20/20 04:39 04:44 04:49 Temperature Pulse Rate 106 H 103 H 105 H Respiratory Rate Blood Pressure Blood Pressure [Left] O2 Sat by Pulse 99 97 98 Oximetry 08/20/20 08/20/20 08/20/20 04:54 04:59 05:03 Temperature Pulse Rate 112 H 99 H 108 H Respiratory Rate Blood Pressure Blood Pressure [Left] O2 Sat by Pulse 98 99 88 Oximetry 08/20/20 08/20/20 08/20/20 05:04 05:09 05:14 Temperature Pulse Rate 104 H 107 H 105 H Respiratory Rate Blood Pressure Blood Pressure [Left] O2 Sat by Pulse 100 98 98 Oximetry 08/20/20 08/20/20 08/20/20 05:19 05:24 05:29 Temperature Pulse Rate 104 H 105 H 104 H Respiratory Rate Blood Pressure Blood Pressure [Left] O2 Sat by Pulse 97 98 97 Oximetry 08/20/20 08/20/20 08/20/20 05:34 05:39 05:44 Temperature Pulse Rate 107 H 103 H 108 H Respiratory Rate Blood Pressure Blood Pressure [Left] O2 Sat by Pulse 97 98 98 Oximetry 08/20/20 08/20/20 08/20/20 05:49 05:54 05:59 Temperature Pulse Rate 105 H 103 H 110 H Respiratory Rate Blood Pressure Blood Pressure [Left] O2 Sat by Pulse 98 98 98 Oximetry 08/20/20 08/20/20 08/20/20 06:04 06:09 06:14 Temperature Pulse Rate 107 H 107 H 127 H Respiratory Rate Blood Pressure Blood Pressure [Left] O2 Sat by Pulse 97 97 97 Oximetry 08/20/20 08/20/20 08/20/20 06:19 06:24 06:29 Temperature Pulse Rate 110 H 106 H 112 H Respiratory Rate Blood Pressure Blood Pressure [Left] O2 Sat by Pulse 97 97 97 Oximetry 08/20/20 08/20/20 08/20/20 06:34 06:39 06:44 Temperature Pulse Rate 128 H 116 H 121 H Respiratory Rate Blood Pressure Blood Pressure [Left] O2 Sat by Pulse 99 98 98 Oximetry 08/20/20 08/20/20 08/20/20 06:49 06:54 06:59 Temperature Pulse Rate 115 H 122 H 101 H Respiratory Rate Blood Pressure Blood Pressure [Left] O2 Sat by Pulse 98 97 97 Oximetry 08/20/20 08/20/20 08/20/20 07:04 07:09 07:14 Temperature Pulse Rate 112 H 109 H 115 H Respiratory Rate Blood Pressure Blood Pressure [Left] O2 Sat by Pulse 98 98 98 Oximetry 08/20/20 08/20/20 08/20/20 07:19 07:24 07:29 Temperature Pulse Rate 113 H 111 H 110 H Respiratory Rate Blood Pressure Blood Pressure [Left] O2 Sat by Pulse 98 99 98 Oximetry 08/20/20 08/20/20 08/20/20 07:34 07:39 07:44 Temperature Pulse Rate 112 H 109 H 113 H Respiratory Rate Blood Pressure Blood Pressure [Left] O2 Sat by Pulse 98 98 98 Oximetry 08/20/20 08/20/20 08/20/20 07:49 07:54 07:59 Temperature Pulse Rate 110 H 110 H 104 H Respiratory Rate Blood Pressure Blood Pressure [Left] O2 Sat by Pulse 98 98 98 Oximetry 08/20/20 08/20/20 08/20/20 08:04 08:09 08:20 Temperature Pulse Rate 109 H 111 H 117 H Respiratory Rate Blood Pressure Blood Pressure [Left] O2 Sat by Pulse 98 99 98 Oximetry 08/20/20 08/20/20 08/20/20 08:25 08:30 08:35 Temperature Pulse Rate 109 H 117 H 104 H Respiratory Rate Blood Pressure Blood Pressure [Left] O2 Sat by Pulse 98 98 99 Oximetry 08/20/20 08/20/20 08/20/20 08:40 08:45 08:50 Temperature Pulse Rate 104 H 109 H 100 H Respiratory Rate Blood Pressure Blood Pressure [Left] O2 Sat by Pulse 99 99 99 Oximetry 08/20/20 08/20/20 08/20/20 08:55 09:00 09:05 Temperature Pulse Rate 105 H 124 H 106 H Respiratory Rate Blood Pressure Blood Pressure [Left] O2 Sat by Pulse 99 97 98 Oximetry 08/20/20 08/20/20 08/20/20 09:10 09:15 09:20 Temperature Pulse Rate 115 H 112 H 108 H Respiratory Rate Blood Pressure Blood Pressure [Left] O2 Sat by Pulse 98 98 99 Oximetry 08/20/20 08/20/20 08/20/20 09:25 09:30 09:32 Temperature Pulse Rate 119 H 109 H 77 Respiratory Rate Blood Pressure Blood Pressure [Left] O2 Sat by Pulse 99 100 82 L Oximetry 08/20/20 08/20/20 08/20/20 09:37 09:50 09:51 Temperature Pulse Rate 72 109 H Respiratory Rate Blood Pressure Blood Pressure [Left] O2 Sat by Pulse 89 84 97 Oximetry 08/20/20 08/20/20 08/20/20 09:56 10:01 10:06 Temperature Pulse Rate 114 H 103 H 109 H Respiratory Rate Blood Pressure Blood Pressure [Left] O2 Sat by Pulse 97 98 95 Oximetry 08/20/20 08/20/20 08/20/20 10:09 10:10 10:11 Temperature 98.0 F Pulse Rate 102 H 100 H 102 H Respiratory 16 Rate Blood Pressure 108/71 Blood Pressure 108/71 [Left] O2 Sat by Pulse 98 98 Oximetry 08/20/20 08/20/20 08/20/20 10:16 10:21 10:26 Temperature Pulse Rate 101 H 104 H 98 H Respiratory Rate Blood Pressure Blood Pressure [Left] O2 Sat by Pulse 96 96 97 Oximetry 08/20/20 08/20/20 08/20/20 10:31 10:36 10:41 Temperature Pulse Rate 104 H 100 H 107 H Respiratory Rate Blood Pressure Blood Pressure [Left] O2 Sat by Pulse 97 97 97 Oximetry 08/20/20 08/20/20 08/20/20 10:46 10:51 10:56 Temperature Pulse Rate 106 H 102 H 103 H Respiratory Rate Blood Pressure Blood Pressure [Left] O2 Sat by Pulse 97 96 96 Oximetry 08/20/20 08/20/20 08/20/20 11:01 11:06 11:11 Temperature Pulse Rate 106 H 106 H 99 H Respiratory Rate Blood Pressure Blood Pressure [Left] O2 Sat by Pulse 96 95 96 Oximetry 08/20/20 08/20/20 11:16 11:21 Temperature Pulse Rate 98 H 98 H Respiratory Rate Blood Pressure Blood Pressure [Left] O2 Sat by Pulse 95 94 Oximetry - Exam Uterine Contraction Monitor Mode: Palpation Cervical Dilatation: 1.5 (soft) Cervical Effacement Percentage: 60 station: -3 Uterine Contraction Frequency (min): none Uterine Contraction Pattern: Absent Uterine Tone Measurement Phase: Resting - Labs Labs: Abnormal Labs 08/07/20 08/07/20 08/08/20 13:39 18:35 01:02 RDW 13.1 L Seg Neutrophils % 72.8 H Sodium Carbon Dioxide BUN Creatinine Glucose POC Glucose Calcium Magnesium 4.10 H 5.00 H AST ALT Total Protein Albumin 08/08/20 08/08/20 08/08/20 13:04 17:26 17:26 RDW Seg Neutrophils % Sodium 134 L Carbon Dioxide 17 L BUN 3 L Creatinine 0.5 L Glucose 145 H POC Glucose Calcium 7.2 L Magnesium 5.50 H 5.50 H AST ALT < 5 L Total Protein 6.1 L Albumin 3.8 L 08/09/20 08/09/20 08/09/20 00:31 07:32 12:24 RDW Seg Neutrophils % Sodium Carbon Dioxide BUN Creatinine Glucose POC Glucose Calcium Magnesium 5.50 H 5.30 H 5.50 H AST ALT Total Protein Albumin 08/09/20 08/10/20 08/17/20 18:08 01:07 06:41 RDW Seg Neutrophils % Sodium 134 L Carbon Dioxide BUN Creatinine 0.5 L Glucose 211 H POC Glucose Calcium Magnesium 4.80 H 3.60 H AST < 5 L ALT < 5 L Total Protein Albumin 3.3 L 08/19/20 08/20/20 08/20/20 17:45 02:03 12:59 RDW Seg Neutrophils % Sodium Carbon Dioxide BUN Creatinine Glucose POC Glucose 107 H 126 H 106 H Calcium Magnesium AST ALT Total Protein Albumin Laboratory Results - last 24 hr 08/19/20 08/19/20 08/20/20 17:45 22:05 02:03 POC Glucose 107 H 85 126 H TSH Free T4 08/20/20 08/20/20 08/20/20 06:33 10:38 10:38 POC Glucose 95 TSH 2.050 Free T4 0.81 08/20/20 12:59 POC Glucose 106 H TSH Free T4
--- NOTE | 2020-08-20 16:23 | Discharge Summary ---
Providers - Providers Date of Admission: 08/07/20 12:23 Date of discharge: 08/20/20 Attending physician: SUZI HANNON 08/07/20 12:36 Consult to Physician [CONS] Urgent Comment: Consulting Provider: ANDRE RAMIREZ Physician Instructions: Reason For Exam: labor @ 26wks Consult to Physician [CONS] Urgent Comment: Consulting Provider: FLAKITO REYNOSO Physician Instructions: Reason For Exam: labor @ 26wks 08/16/20 13:40 Consult to Cardiology [CONS] Urgent Consulting Provider: CORY BELTRAN Reason For Exam: Chest pain and pressure 08/20/20 07:28 Consult to Dietitian/Nutrition [CONS] Routine Physician Instructions: failed 3hgtt, 28weeks Reason For Exam: Diabetic teaching,nutrition counseling Reason for Consult: Diet education Primary care physician: SUZI HANNON Hospitalization Reason for admission: labor Discharge diagnosis: other (IUP @ 28 weeks, labor) Hospital course: tocolysis and steroids Condition at discharge: Good Disposition: DC-01 TO HOME OR SELFCARE - Discharge Diagnoses (1) Pseudotumor cerebri Status: Chronic (2) Anxiety Status: Chronic (3) 28 weeks gestation of Status: Acute (4) labor in third trimester Status: Acute Qualifiers: labor delivery status: without delivery Qualified Code(s): O60.03 - labor without delivery, third trimester (5) Gestational diabetes Status: Acute Qualifiers: Gestational diabetes mellitus control: diet-controlled Trimester: third trimester Qualified Code(s): O24.410 - Gestational diabetes mellitus in , diet controlled Plan - Discharge Medications Prescriptions: Sertraline [Zoloft] 50 mg PO QDAY #30 tablet - Provider Discharge Summary Additional instructions: Call your doctor immediately for: * Fever > 100.5 * Heavy vaginal bleeding ( >1 pad per hour) * Severe persistent headache * Shortness of breath * Reddened, hot, painful area to leg or breast * Leaking or bleeding from vagina * Decreased movement * Abdominal pain, cramping or contractions - Follow up plan Follow up: SUZI HANNON MD [Primary Care Provider] - 14 Days ([facility] to [facility]. Keep a log of all your blood sugars and bring them to your appointments. Come back to hospital for any signs or labor. Call [phone] to schedule your next appointment with [facility].)
== END 2020-08-20 18:35 | disposition home or self-care (01) | DRG 781 ==
LOC: TRG 09:27 → APU 09:28 → LD 12:23 → TRG 12:23 → LD 08-12 18:24
PROVIDERS: ADMIT Obstetrics & Gynecology; ATTEND Obstetrics & Gynecology
DX: O24.419 Gestational diabetes mellitus in pregnancy, unspecified control (principal); O60.02 Preterm labor without delivery, second trimester; O26.892 Other specified pregnancy related conditions, second trimester; O99.342 Other mental disorders complicating pregnancy, second trimester; G93.2 Benign intracranial hypertension; F41.9 Anxiety disorder, unspecified; Z20.822 Contact with and (suspected) exposure to COVID-19; O99.612 Diseases of the digestive system complicating pregnancy, second trimester; K21.9 Gastro-esophageal reflux disease without esophagitis; O26.872 Cervical shortening, second trimester; Z3A.26 26 weeks gestation of pregnancy; Z90.49 Acquired absence of other specified parts of digestive tract; Z79.899 Other long term (current) drug therapy; Z56.0 Unemployment, unspecified; Z82.49 Family history of ischemic heart disease and other diseases of the circulatory system
CPT/HCPCS: 36415; 59025; 71275; 76815; 76816; 76817; 80053; 81001; 82550; 82731; 82951; 82962; 83735; 84439; 84443; 84481; 84484; 85025; 86592; 86850; 86900; 86901; 87086; 87116; 93005; 93306; 96360; G0378; J1100; J3246; J3475; J7120; Q9967; U0003

== ENCOUNTER 2020-10-01 03:05 | Inpatient (IN) | payer MEDICAID ==
[2020-10-01] MEDS ORDERED: LACTATED RINGERS 1,000 ML IV ONE (04:03)
[2020-10-01] MEDS ORDERED: ONDANSETRON 4 MG/2 ML INJ IV PRN ×2 (04:51→22:13)
[2020-10-01] MEDS ORDERED: PROMETHAZINE 25 MG TAB PO PRN (04:51)
[2020-10-01] MEDS ORDERED: ACETAMINOPHEN 325 MG TAB PO PRN (04:51)
[2020-10-01] MEDS ORDERED: LIDOCAINE (2%) 20 MG/1 ML VIAL 20 ML MDV INFILTRATI ONE (04:51)
[2020-10-01] MEDS ORDERED: ePHEDrine SULFATE 50 MG/1 ML INJ IV PRN ×2 (04:51→06:30)
[2020-10-01] MEDS ORDERED: MINERAL OIL 30 ML ORAL LIQD PO PRN (04:51)
[2020-10-01] MEDS ORDERED: TERBUTALINE 1 MG/1 ML INJ SUB-Q PRN (04:51)
[2020-10-01] MEDS ORDERED: MAGNESIUM HYDROXIDE (MOM) ORAL LIQD UDC PO PRN (04:56)
[2020-10-01] MEDS ORDERED: DOCUSATE SODIUM 100 MG CAP PO PRN (04:56)
[2020-10-01] MEDS ORDERED: ALUM-MAG HYDROXIDE-SIMETHICONE 200-200-20MG/5ML ORAL LIQD 30 ML PO PRN (04:56)
[2020-10-01] MEDS ORDERED: LACTATED RINGERS 1,000 ML IV SCH ×2 (05:00→19:45)
--- NOTE | 2020-10-01 05:01 | History and Physical Report ---
History of Present Illness Date of examination: 10/01/20 (SROM) Date of admission: 10/01/20 Chief complaint: My water broke. History of present illness: Patient presents to triage with complaints of LOF that started at 0200am and abdominal pain that started at 0230am. EDC Confirmation: 11/12/2020 Gestational Age: 34 weeks on admission Past History : 3 Term Births: 0 Premature Births: 2 Living Children: 1 Para: 2 Mult. Births: 0 Prev : 0 Prev. attempt? 0 Aborta: 0 Elect. Ab: 0 Spont. 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 of genital herpes: no Partner hx. of genital herpes: no Rash, Viral, or Febrile illness since last LMP? no Varicella/Chicken Pox Status: Previous Disease Genetic History Congenital Heart Defect: Mom: no Dad: no Oziel Disease: Mom: no Dad: no Thalassemia Mom: no Dad: no Neural Tube Defect Mom: no Dad: no Down's Syndrome Mom: no Dad: no David-Sachs Mom: no Dad: no Sickle Cell Disease/Trait Mom: no Dad: no Hemophilia Mom: no Dad: no Muscular Dystrophy Mom: no Dad: no Cystic Fibrosis Mom: no Dad: no [place] Chorea Mom: no Dad: no Mental Retardation Mom: no Dad: no Fragile X Mom: no Dad: no Other Genetic/Chromosomal Disorder Mom: no Dad: no Child w/other defect Mom: no Dad: no Enviromental Exposures Xray Exposure: no Medication, drug, or alcohol use since LMP: no Chemical/Other Exposure: no Exposure to Cat Liter: no Hx of Parvovirus (Fifth Disease): no Occupational Exposure to Children: none Current Allergies: No known allergies Past History Past Medical History: neurologic (pseudo brain tumor) Past Surgical History: appendectomy, other (umbilical hernia repair) Family/Genetic History: none Social history: no significant social history - Obstetrical History Expected Date of Delivery: 11/12/20 Actual Gestation: 34 Week(s) 0 Day(s) : 3 Para: 2 Hx # Term Pregnancies: 0 Number of Pregnancies: 2 (2008 @ 27 weeks, 2019 @ 24 wks, infant passed after delivery) Spontaneous Abortions: 0 Induced : 0 Number of Living Children: 1 Medications and Allergies Allergies Allergy/AdvReac Type Severity Reaction Status Date / Time No Known Allergies Allergy Verified 08/07/20 11:08 Home Medications Medication Instructions Recorded Confirmed Last Taken Type metroNIDAZOLE [Flagyl] 500 mg PO Q12HR #14 tab 01/28/20 08/07/20 Unknown Rx Sertraline [Zoloft] 50 mg PO QDAY #30 tablet 08/20/20 Unknown Rx Active Meds: Active Medications Acetaminophen (Acetaminophen 325 Mg Tab) 1,000 mg PO Q6H PRN PRN Reason: Pain, Mild (1-3) Al Hydrox/Mg Hydrox/Simethicone (Alum-Mag Hydroxide-Simethicone [phone]/5ml Oral Liqd 30 Ml) 30 ml PO Q6H PRN PRN Reason: Indigestion Docusate Sodium (Docusate Sodium 100 Mg Cap) 100 mg PO Q12H PRN PRN Reason: Constipation Ephedrine Sulfate (Ephedrine Sulfate 50 Mg/1 Ml Inj) 10 mg IV Q2M PRN PRN Reason: Hypotension Lactated Ringer's (Lactated Ringers) 1,000 mls @ 999 mls/hr IV BOLUS ONE Stop: 10/01/20 05:03 Lactated Ringer's (Lactated Ringers) 1,000 mls @ 125 mls/hr IV DIRECT GALEN Ampicillin Sodium (Ampicillin/Ns 2 Gm/100 Ml) 2 gm in 100 mls @ 100 mls/hr IV Q6H GALEN; Protocol Stop: 10/02/20 23:59 Lidocaine (Lidocaine (2%) 20 Mg/1 Ml Vial 20 Ml Mdv) 20 ml INFILTRATI ONCE ONE Stop: 10/01/20 04:52 Magnesium Hydroxide (Magnesium Hydroxide (Mom) Oral Liqd Udc) 30 ml PO QHS PRN PRN Reason: Laxative Effect Mineral Oil (Mineral Oil 30 Ml Oral Liqd) 30 ml PO QHS PRN PRN Reason: Constipation Multivitamins/Iron/Calcium ( Rld17-Rq Fumarate-Folic Acid Vit Tab) 1 each PO QDAY GALEN Ondansetron HCl (Ondansetron 4 Mg/2 Ml Inj) 4 mg IV Q8H PRN PRN Reason: Nausea And Vomiting Promethazine HCl (Promethazine 25 Mg Tab) 25 mg PO Q6H PRN PRN Reason: Nausea And Vomiting Terbutaline Sulfate (Terbutaline 1 Mg/1 Ml Inj) 0.25 mg SUB-Q ONCE PRN PRN Reason: Hyperstimulation/Hypertonicity Review of Systems All systems: negative - Vital Signs Vital signs: Vital Signs Pulse BP Pulse Ox 107 H 122/75 99 10/01/20 03:37 10/01/20 03:37 10/01/20 03:37 Temp Pulse Resp BP Pulse Ox 98.7 F 100 H 18 122/75 98 10/01/20 03:51 10/01/20 04:57 10/01/20 03:51 10/01/20 03:51 10/01/20 04:57 Discussed with patient the plan for admission, expectant management of labor, and NICU consult. Pt verbalized understanding. - Physical Exam Breasts: Positive: deferred Cardiovascular: Regular rate Lungs: Positive: Clear to auscultation Abdomen: Positive: normal appearance, soft Genitourinary (Female): Positive: normal external genitalia, normal perenium Vulva: both: normal Vagina: Positive: normal moisture Uterus: Positive: normal size Extremities: Positive: normal - Obstetrical FHR: category 1 Uterine Contraction Monitor Mode: External Cervical Dilatation: 1 (Large amount clear fluid noted on peripad.) Cervical Effacement Percentage: 50 station: -3 Uterine Contraction Pattern: Irregular Uterine Tone Measurement Phase: Resting Uterine Contraction Intensity: Mild Results Result Diagrams: 10/01/20 05:05 Abnormal lab results 10/01/20 Range/Units 04:05 Membranes Rupture Positive A (Negative) All other labs normal. GBS UNKNOWN HBsAg Screen Negative Negative *1 RPR Non Reactive Non Reactive *2 Rubella Antibodies, IgG 1.45 index Immune >0.99 *3 Non-immune <0.90 Equivocal 0.90 - 0.99 Immune >0.99 ABO Grouping B *4 Rh Factor Positive *5 Antibody Screen Negative Negative *6 Tests: (2) HB Solu + Rflx Frac (520555) Hemoglobin (Hgb) Solubility [A] Positive Negative *31 Verified by repeat analysis Tests: (3) Hemoglobin Frac.w/o Solubility (216162) ! Hgb F 0.0 % 0.0-2.0 *32 ! Hgb A [L] 63.2 % 96.4-98.8 *33 ! Hgb S [H] 32.8 % 0.0 *34 ! Hgb C 0.0 % 0.0 *35 ! Hgb A2 [H] 4.0 % 1.8-3.2 *36 ! Hgb Variant <No Reported Value> *37 ! Interpretation HGAS1 *38 Hemoglobin pattern and concentration are consistent with sickle cell trait (heterozygous). Suggest clinical and hematologic correlation. Sickle Trait Interpretation Ranges Hgb A 50.0 - 70.0% Hgb S 30.0 - 45.0% Hgb A2 3.0 - 5.0%* *Hgb A2 values are seen to be increased over normal levels. This increase is typically due to interference from co-eluting Hgb S-subunits with the HPLC method and therefore the Hgb A2 interpretation ranges have been adjusted. Tests: (4) HIV Ag/Ab with Reflex (101898) HIV Screen 4th Generation wRfx Non Reactive Non Reactive *39 Tests: (5) HCV Ab w/Rflx to Verification (437898) ! HCV Ab <0.1 s/co ratio 0.0-0.9 *40 Tests: (6) Comment: ([id number]) ! Comment: SPRCS *41 Non reactive HCV antibody screen is consistent with no HCV infection, unless recent infection is suspected or other evidence exists to indicate HCV infection. Assessment and Plan A: 30 y.o. @ 34 weeks with PPROM @ 0200am for clear fluid, GDM this . - Patient Problems (1) with 34 to 36 completed weeks gestation Onset Date: ~10/01/20 Current Visit: Yes Status: Acute Plan to address problem: Admit to labor and delivery. Initiate IV. Admission labs ordered. NICU consult placed. EFM to monitor status. (2) premature rupture of membranes Onset Date: ~10/01/20 Current Visit: Yes Status: Acute Plan to address problem: Monitor for s/sx of labor. Antibiotics ordered. (3) Gestational diabetes Onset Date: ~08/19/20 Current Visit: Yes Status: Acute Qualifiers: Gestational diabetes mellitus control: diet-controlled Trimester: third trimester Qualified Code(s): O24.410 - Gestational diabetes mellitus in , diet controlled Plan to address problem: Insulin moderate scale ordered. Accu-checks q 6hrs.
[2020-10-01 05:34] LABS: Hematocrit 29.4 % (30.3-42.9); Hemoglobin 10.5 gm/dl (10.1-14.3); Mean Corpuscular HGB Conc 36 % (30-34); Mean Corpuscular Volume 81 fl (79-97); Platelet Count 209 K/mm3 (140-440); Red Blood Count 3.63 M/mm3 (3.65-5.03); Red Cell Distribution Width 13.6 % (13.2-15.2)
[2020-10-01] MEDS ORDERED: DEXTROSE 50% IN WATER (25GM) 50 ML SYRINGE IV PRN (05:53)
[2020-10-01] MEDS ORDERED: INSULIN REGULAR, HUMAN 100 UNITS/1 ML SUB-Q SCH ×2 (06:00→17:00)
[2020-10-01] MEDS ORDERED: NALOXONE 0.4 MG/1 ML INJ IV PRN ×2 (06:30→22:13)
[2020-10-01] MEDS ORDERED: OXYTOCIN 10 UNIT/1 ML INJ IM PRN (06:30)
[2020-10-01] MEDS ORDERED: CARBOPROST TROMETHAMINE 250 MCG/1 ML INJ IM PRN (06:30)
[2020-10-01] MEDS ORDERED: METHYLERGONOVINE MALEATE 0.2 MG/ML VIAL IM PRN (06:30)
[2020-10-01] MEDS ORDERED: fentaNYL 100 MCG/2 ML INJ IV PRN (06:30)
[2020-10-01] MEDS ORDERED: miSOPROStol 200 MCG TAB PR PRN (06:30)
[2020-10-01] MEDS ORDERED: LOPERAMIDE 2 MG CAP PO PRN (06:30)
[2020-10-01] MEDS ORDERED: OXYTOCIN DRIP 30 UNITS/500 ML BAG IV SCH ×2 (07:00→19:00)
[2020-10-01] MEDS: AMPICILLIN/NS 2 GM/100 ML 2 GM/100 ML BAG IV SCH ×2 (12:00→17:54)
--- NOTE | 2020-10-01 14:09 | Consultation ---
Consult Note - Parent Education I met with parent(s) and discussed the following:: Need for NICU admission, Poss ible need for intubation and surfactant or other resp support, Temperature regulation, Possible need for IV fluids/TPN and IV antibiotics, Importance of providing breast milk & encouraged pumping aft delivery, Slow feeding advancement and monitoring of tolerance. NG/OG feeds, Need to monitor for jaundice, Data for survival & survival without significant co-morbidities Parent(s) demonstrated understanding of all the information:: Yes Additional Comment: 30 yo L1 mother presented with SROM 10/01/20 0200 and abdominal pain. Mother was hopsitalized in July for PTL and received mag and steroids at that time. Currently on Ampicillin. B+, rubella immune, Hep B negative, HIV negative, RPR NR, GBS unkown, GDM diet controlled. History of delivery at 27 weeks and 24 week (passed at delivery). EDC 11/12/20 Assessment and Plan - Assessment Gestation:: 34 Baby's gender: Male - Plan Plan: Will attend delivery Please call NICU with questions
--- NOTE | 2020-10-01 16:08 | Progress Note ---
Assessment and Plan - Patient Problems (1) 34 weeks gestation of Current Visit: Yes Status: Acute Plan to address problem: OB US for EFW, REFUGIO and presentation ordered BPP ordered (2) premature rupture of membranes Onset Date: ~10/01/20 Current Visit: Yes Status: Acute Plan to address problem: No s/s chorioamnionitis at this time. Continue observation for now Delivery does not appear to be imminent, will hold steroids for now. She received a full course of Decadron 08/07-08/08. GBS order NICU completed (3) Gestational diabetes Onset Date: ~08/19/20 Current Visit: Yes Status: Acute Qualifiers: Gestational diabetes mellitus control: insulin-controlled Trimester: third trimester Qualified Code(s): O24.414 - Gestational diabetes mellitus in , insulin controlled Plan to address problem: Per patient Humulin N 20u qam and 12u qhs. 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 She stopped taking Diamox when she found out she was . Subjective - Subjective Date of service: 10/01/20 Principal diagnosis: IUP@34 0/7wga, SROM, h/o PTLx2(IUFD x1 @24wks), GDM on insulin Interval history: Still leaking Patient reports: no new complaints, no vaginal bleeding, no contractions Objective - Vital Signs Vital Signs: Vital Signs - 12hr 10/01/20 10/01/20 10/01/20 04:07 04:12 04:17 Pulse Rate 98 H 99 H 98 H Blood Pressure O2 Sat by Pulse 100 99 98 Oximetry 10/01/20 10/01/20 10/01/20 04:22 04:27 04:32 Pulse Rate 102 H 93 H 100 H Blood Pressure O2 Sat by Pulse 98 97 99 Oximetry 10/01/20 10/01/20 10/01/20 04:37 04:42 04:47 Pulse Rate 102 H 101 H 95 H Blood Pressure O2 Sat by Pulse 97 97 99 Oximetry 10/01/20 10/01/20 10/01/20 04:52 04:57 05:02 Pulse Rate 100 H 100 H 96 H Blood Pressure O2 Sat by Pulse 97 98 96 Oximetry 10/01/20 10/01/20 10/01/20 05:03 05:07 05:12 Pulse Rate 91 H 109 H 100 H Blood Pressure O2 Sat by Pulse 94 97 97 Oximetry 10/01/20 10/01/20 10/01/20 05:17 05:22 05:27 Pulse Rate 94 H 97 H 96 H Blood Pressure O2 Sat by Pulse 98 98 98 Oximetry 10/01/20 10/01/20 10/01/20 05:32 05:37 05:42 Pulse Rate 98 H 107 H 98 H Blood Pressure O2 Sat by Pulse 99 98 98 Oximetry 10/01/20 10/01/20 10/01/20 05:47 05:57 06:02 Pulse Rate 94 H 109 H 103 H Blood Pressure O2 Sat by Pulse 99 97 100 Oximetry 10/01/20 10/01/20 10/01/20 06:07 06:12 06:17 Pulse Rate 101 H 99 H 98 H Blood Pressure O2 Sat by Pulse 100 98 98 Oximetry 10/01/20 10/01/20 10/01/20 06:22 06:27 06:32 Pulse Rate 96 H 106 H 94 H Blood Pressure O2 Sat by Pulse 98 100 96 Oximetry 10/01/20 10/01/20 10/01/20 06:37 06:42 06:47 Pulse Rate 102 H 90 98 H Blood Pressure O2 Sat by Pulse 98 99 98 Oximetry 10/01/20 10/01/20 10/01/20 06:52 06:57 07:02 Pulse Rate 94 H 88 93 H Blood Pressure O2 Sat by Pulse 98 98 99 Oximetry 10/01/20 10/01/20 10/01/20 07:07 07:12 07:17 Pulse Rate 99 H 100 H 101 H Blood Pressure O2 Sat by Pulse 97 97 95 Oximetry 10/01/20 10/01/20 10/01/20 07:22 07:27 07:32 Pulse Rate 104 H 105 H 100 H Blood Pressure O2 Sat by Pulse 99 96 97 Oximetry 10/01/20 10/01/20 10/01/20 07:37 08:00 08:01 Pulse Rate 101 H 105 H 106 H Blood Pressure 135/86 O2 Sat by Pulse 98 99 Oximetry 10/01/20 10/01/20 10/01/20 08:06 08:11 08:16 Pulse Rate 104 H 101 H 104 H Blood Pressure O2 Sat by Pulse 98 99 98 Oximetry 10/01/20 10/01/20 10/01/20 08:21 08:26 08:31 Pulse Rate 83 105 H 100 H Blood Pressure O2 Sat by Pulse 96 97 98 Oximetry 10/01/20 10/01/20 10/01/20 08:36 08:41 08:46 Pulse Rate 112 H 89 99 H Blood Pressure O2 Sat by Pulse 98 100 97 Oximetry 10/01/20 10/01/20 10/01/20 08:52 08:57 09:00 Pulse Rate 104 H 104 H 102 H Blood Pressure O2 Sat by Pulse 98 97 94 Oximetry 10/01/20 10/01/20 10/01/20 09:02 09:07 09:10 Pulse Rate 101 H 94 H 101 H Blood Pressure O2 Sat by Pulse 95 97 94 Oximetry 10/01/20 10/01/20 10/01/20 09:12 09:17 09:18 Pulse Rate 97 H 95 H 100 H Blood Pressure O2 Sat by Pulse 95 95 93 Oximetry 10/01/20 10/01/20 10/01/20 09:22 09:23 09:27 Pulse Rate 107 H 94 H 101 H Blood Pressure O2 Sat by Pulse 97 94 97 Oximetry 10/01/20 10/01/20 10/01/20 09:30 09:32 09:35 Pulse Rate 93 H 94 H 98 H Blood Pressure O2 Sat by Pulse 93 94 93 Oximetry 10/01/20 10/01/20 10/01/20 09:37 09:41 09:42 Pulse Rate 96 H 94 H 96 H Blood Pressure O2 Sat by Pulse 94 94 94 Oximetry 10/01/20 10/01/20 10/01/20 09:46 09:47 09:52 Pulse Rate 92 H 97 H 91 H Blood Pressure O2 Sat by Pulse 94 94 93 Oximetry 10/01/20 10/01/20 10/01/20 09:57 10:02 10:07 Pulse Rate 97 H 95 H 98 H Blood Pressure O2 Sat by Pulse 91 93 92 Oximetry 10/01/20 10/01/20 10/01/20 10:10 10:12 10:15 Pulse Rate 112 H 111 H 99 H Blood Pressure O2 Sat by Pulse 92 97 93 Oximetry 10/01/20 10/01/20 10/01/20 10:17 10:20 10:22 Pulse Rate 89 96 H 98 H Blood Pressure O2 Sat by Pulse 94 94 94 Oximetry 10/01/20 10/01/20 10/01/20 10:27 10:32 10:35 Pulse Rate 96 H 96 H 104 H Blood Pressure O2 Sat by Pulse 94 93 93 Oximetry 10/01/20 10/01/20 10/01/20 10:37 10:42 10:47 Pulse Rate 95 H 96 H 99 H Blood Pressure O2 Sat by Pulse 99 97 96 Oximetry 10/01/20 10/01/20 10/01/20 10:52 10:57 10:58 Pulse Rate 96 H 95 H 94 H Blood Pressure O2 Sat by Pulse 96 95 93 Oximetry 10/01/20 10/01/20 10/01/20 11:02 11:07 11:12 Pulse Rate 95 H 96 H 108 H Blood Pressure O2 Sat by Pulse 96 94 93 Oximetry 10/01/20 10/01/20 10/01/20 11:17 11:22 11:27 Pulse Rate 108 H 92 H 100 H Blood Pressure O2 Sat by Pulse 96 97 96 Oximetry 10/01/20 10/01/20 10/01/20 11:29 11:32 11:35 Pulse Rate 105 H 95 H 101 H Blood Pressure O2 Sat by Pulse 94 95 94 Oximetry 10/01/20 10/01/20 10/01/20 11:37 11:42 11:44 Pulse Rate 97 H 101 H 101 H Blood Pressure O2 Sat by Pulse 94 96 94 Oximetry 10/01/20 10/01/20 10/01/20 11:47 11:49 11:52 Pulse Rate 95 H 90 97 H Blood Pressure O2 Sat by Pulse 95 92 95 Oximetry 10/01/20 10/01/20 10/01/20 11:55 11:57 12:02 Pulse Rate 92 H 97 H 102 H Blood Pressure O2 Sat by Pulse 93 97 98 Oximetry 10/01/20 10/01/20 10/01/20 12:16 12:21 12:26 Pulse Rate 104 H 86 93 H Blood Pressure O2 Sat by Pulse 100 99 98 Oximetry 10/01/20 10/01/20 10/01/20 12:31 12:36 12:41 Pulse Rate 110 H 92 H 95 H Blood Pressure O2 Sat by Pulse 99 99 99 Oximetry 10/01/20 10/01/20 10/01/20 12:46 12:51 12:56 Pulse Rate 98 H 93 H 109 H Blood Pressure O2 Sat by Pulse 99 99 99 Oximetry 10/01/20 10/01/20 10/01/20 13:01 13:06 13:11 Pulse Rate 101 H 115 H 109 H Blood Pressure O2 Sat by Pulse 99 99 99 Oximetry 10/01/20 10/01/20 10/01/20 13:16 13:21 13:26 Pulse Rate 105 H 107 H 100 H Blood Pressure O2 Sat by Pulse 98 98 97 Oximetry 10/01/20 10/01/20 10/01/20 13:31 13:36 13:41 Pulse Rate 103 H 99 H 106 H Blood Pressure O2 Sat by Pulse 97 97 99 Oximetry 10/01/20 10/01/20 10/01/20 13:46 13:51 13:57 Pulse Rate 109 H 115 H 98 H Blood Pressure O2 Sat by Pulse 99 99 99 Oximetry 10/01/20 10/01/20 10/01/20 14:02 14:07 14:12 Pulse Rate 109 H 98 H 101 H Blood Pressure O2 Sat by Pulse 99 99 98 Oximetry 10/01/20 10/01/20 10/01/20 14:17 14:22 14:27 Pulse Rate 102 H 103 H 101 H Blood Pressure O2 Sat by Pulse 98 98 100 Oximetry 10/01/20 10/01/20 10/01/20 14:32 14:37 15:10 Pulse Rate 99 H 100 H 106 H Blood Pressure O2 Sat by Pulse 99 97 99 Oximetry 10/01/20 10/01/20 10/01/20 15:15 15:20 15:25 Pulse Rate 101 H 111 H 101 H Blood Pressure O2 Sat by Pulse 99 98 97 Oximetry 10/01/20 10/01/20 10/01/20 15:30 15:35 15:40 Pulse Rate 98 H 112 H 100 H Blood Pressure O2 Sat by Pulse 96 97 97 Oximetry 10/01/20 10/01/20 10/01/20 15:45 15:50 15:55 Pulse Rate 101 H 102 H 109 H Blood Pressure O2 Sat by Pulse 96 96 98 Oximetry 10/01/20 16:00 Pulse Rate 114 H Blood Pressure O2 Sat by Pulse 99 Oximetry - Exam Breasts: deferred Cardiovascular: Regular rate Lungs: Normal air movement Abdomen: Present: soft. Absent: tenderness Uterus: Present: fundal height above umbilicus. Absent: tenderness Uterine Contraction Monitor Mode: External Uterine Contraction Pattern: Absent Extremities: normal - Labs Labs: Abnormal Labs 10/01/20 10/01/20 10/01/20 04:05 05:05 13:00 RBC 3.63 L Hct 29.4 L MCHC 36 H POC Glucose 142 H Membranes Rupture Positive A Laboratory Results - last 24 hr 10/01/20 10/01/20 10/01/20 04:05 05:05 05:05 WBC 8.3 RBC 3.63 L Hgb 10.5 Hct 29.4 L MCV 81 MCH 29 MCHC 36 H RDW 13.6 Plt Count 209 POC Glucose Membranes Rupture Positive A Syphilis IgG Antibody Blood Type B POSITIVE Antibody Screen Negative 10/01/20 10/01/20 08:33 13:00 WBC RBC Hgb Hct MCV MCH MCHC RDW Plt Count POC Glucose 142 H Membranes Rupture Syphilis IgG Antibody Nonreactive Blood Type Antibody Screen - Results US- obstetric: pending
--- NOTE | 2020-10-01 18:35 | Progress Note ---
Assessment and Plan - Patient Problems (1) 34 weeks gestation of Current Visit: Yes Status: Acute (2) premature rupture of membranes Onset Date: ~10/01/20 Current Visit: Yes Status: Acute (3) Gestational diabetes Onset Date: ~08/19/20 Current Visit: Yes Status: Acute Qualifiers: Gestational diabetes mellitus control: insulin-controlled Trimester: third trimester Qualified Code(s): O24.414 - Gestational diabetes mellitus in , insulin controlled (4) Intracranial hypertension Current Visit: Yes Status: Chronic Plan to address problem: Diagnosis with Anesthesia who voiced concern for epidural for pain management intracranial hypotension. Also discussed concern for increase intracranial pressure with labor and pushing and need for instrumented delivery without analgesia. Options reviewed. Risk associated with delivery were discussed, including but not limited to, bleeding that may require blood transfusion, infection that may be life threatening, injury to adjacent organs specifically bowel or bladder that may require further surgeries, or major vascular injury. She was also informed that when she has had a delivery she may require repeat deliveries for all subsequent pregnancies. Questions were encouraged and answered, consents were reviewed and signed. Patient voiced understanding and desires to proceed with delivery. (5) Abnormal ultrasound Current Visit: Yes Status: Acute Plan to address problem: Persistent Cat 2, BPP /10 will move to delivery Subjective - Subjective Date of service: 10/01/20 Principal diagnosis: IUP@34 0/7wga, SROM, h/o PTLx2(IUFD x1 @24wks), GDM on insulin Patient reports: no new complaints, no vaginal bleeding, no contractions Objective - Vital Signs Vital Signs: Vital Signs - 12hr 10/01/20 10/01/20 10/01/20 06:22 06:27 06:32 Temperature Pulse Rate 96 H 106 H 94 H Respiratory Rate Blood Pressure O2 Sat by Pulse 98 100 96 Oximetry 10/01/20 10/01/20 10/01/20 06:37 06:42 06:47 Temperature Pulse Rate 102 H 90 98 H Respiratory Rate Blood Pressure O2 Sat by Pulse 98 99 98 Oximetry 10/01/20 10/01/20 10/01/20 06:52 06:57 07:02 Temperature Pulse Rate 94 H 88 93 H Respiratory Rate Blood Pressure O2 Sat by Pulse 98 98 99 Oximetry 10/01/20 10/01/20 10/01/20 07:07 07:12 07:17 Temperature Pulse Rate 99 H 100 H 101 H Respiratory Rate Blood Pressure O2 Sat by Pulse 97 97 95 Oximetry 10/01/20 10/01/20 10/01/20 07:22 07:27 07:32 Temperature Pulse Rate 104 H 105 H 100 H Respiratory Rate Blood Pressure O2 Sat by Pulse 99 96 97 Oximetry 10/01/20 10/01/20 10/01/20 07:37 08:00 08:01 Temperature Pulse Rate 101 H 105 H 106 H Respiratory Rate Blood Pressure 135/86 O2 Sat by Pulse 98 99 Oximetry 10/01/20 10/01/20 10/01/20 08:06 08:11 08:16 Temperature Pulse Rate 104 H 101 H 104 H Respiratory Rate Blood Pressure O2 Sat by Pulse 98 99 98 Oximetry 10/01/20 10/01/20 10/01/20 08:21 08:26 08:31 Temperature Pulse Rate 83 105 H 100 H Respiratory Rate Blood Pressure O2 Sat by Pulse 96 97 98 Oximetry 10/01/20 10/01/20 10/01/20 08:36 08:41 08:46 Temperature Pulse Rate 112 H 89 99 H Respiratory Rate Blood Pressure O2 Sat by Pulse 98 100 97 Oximetry 10/01/20 10/01/20 10/01/20 08:52 08:57 09:00 Temperature Pulse Rate 104 H 104 H 102 H Respiratory Rate Blood Pressure O2 Sat by Pulse 98 97 94 Oximetry 10/01/20 10/01/20 10/01/20 09:02 09:07 09:10 Temperature Pulse Rate 101 H 94 H 101 H Respiratory Rate Blood Pressure O2 Sat by Pulse 95 97 94 Oximetry 10/01/20 10/01/20 10/01/20 09:12 09:17 09:18 Temperature Pulse Rate 97 H 95 H 100 H Respiratory Rate Blood Pressure O2 Sat by Pulse 95 95 93 Oximetry 10/01/20 10/01/20 10/01/20 09:22 09:23 09:27 Temperature Pulse Rate 107 H 94 H 101 H Respiratory Rate Blood Pressure O2 Sat by Pulse 97 94 97 Oximetry 10/01/20 10/01/20 10/01/20 09:30 09:32 09:35 Temperature Pulse Rate 93 H 94 H 98 H Respiratory Rate Blood Pressure O2 Sat by Pulse 93 94 93 Oximetry 10/01/20 10/01/2010/01/21 09:37 09:41 09:42 Temperature Pulse Rate 96 H 94 H 96 H Respiratory Rate Blood Pressure O2 Sat by Pulse 94 94 94 Oximetry 10/01/20 10/01/20 10/01/20 09:46 09:47 09:52 Temperature Pulse Rate 92 H 97 H 91 H Respiratory Rate Blood Pressure O2 Sat by Pulse 94 94 93 Oximetry 10/01/20 10/01/20 10/01/20 09:57 10:02 10:07 Temperature Pulse Rate 97 H 95 H 98 H Respiratory Rate Blood Pressure O2 Sat by Pulse 91 93 92 Oximetry 10/01/20 10/01/20 10/01/20 10:10 10:12 10:15 Temperature Pulse Rate 112 H 111 H 99 H Respiratory Rate Blood Pressure O2 Sat by Pulse 92 97 93 Oximetry 10/01/20 10/01/20 10/01/20 10:17 10:20 10:22 Temperature Pulse Rate 89 96 H 98 H Respiratory Rate Blood Pressure O2 Sat by Pulse 94 94 94 Oximetry 10/01/20 10/01/20 10/01/20 10:27 10:32 10:35 Temperature Pulse Rate 96 H 96 H 104 H Respiratory Rate Blood Pressure O2 Sat by Pulse 94 93 93 Oximetry 10/01/20 10/01/20 10/01/20 10:37 10:42 10:47 Temperature Pulse Rate 95 H 96 H 99 H Respiratory Rate Blood Pressure O2 Sat by Pulse 99 97 96 Oximetry 10/01/20 10/01/20 10/01/20 10:52 10:57 10:58 Temperature Pulse Rate 96 H 95 H 94 H Respiratory Rate Blood Pressure O2 Sat by Pulse 96 95 93 Oximetry 10/01/20 10/01/20 10/01/20 11:02 11:07 11:12 Temperature Pulse Rate 95 H 96 H 108 H Respiratory Rate Blood Pressure O2 Sat by Pulse 96 94 93 Oximetry 10/01/20 10/01/20 10/01/20 11:17 11:22 11:27 Temperature Pulse Rate 108 H 92 H 100 H Respiratory Rate Blood Pressure O2 Sat by Pulse 96 97 96 Oximetry 10/01/20 10/01/20 10/01/20 11:29 11:32 11:35 Temperature Pulse Rate 105 H 95 H 101 H Respiratory Rate Blood Pressure O2 Sat by Pulse 94 95 94 Oximetry 10/01/20 10/01/20 10/01/20 11:37 11:42 11:44 Temperature Pulse Rate 97 H 101 H 101 H Respiratory Rate Blood Pressure O2 Sat by Pulse 94 96 94 Oximetry 10/01/20 10/01/20 10/01/20 11:47 11:49 11:52 Temperature Pulse Rate 95 H 90 97 H Respiratory Rate Blood Pressure O2 Sat by Pulse 95 92 95 Oximetry 10/01/20 10/01/20 10/01/20 11:55 11:57 12:02 Temperature Pulse Rate 92 H 97 H 102 H Respiratory Rate Blood Pressure O2 Sat by Pulse 93 97 98 Oximetry 10/01/20 10/01/20 10/01/20 12:16 12:21 12:26 Temperature Pulse Rate 104 H 86 93 H Respiratory Rate Blood Pressure O2 Sat by Pulse 100 99 98 Oximetry 10/01/20 10/01/20 10/01/20 12:31 12:36 12:41 Temperature Pulse Rate 110 H 92 H 95 H Respiratory Rate Blood Pressure O2 Sat by Pulse 99 99 99 Oximetry 10/01/20 10/01/20 10/01/20 12:46 12:51 12:56 Temperature Pulse Rate 98 H 93 H 109 H Respiratory Rate Blood Pressure O2 Sat by Pulse 99 99 99 Oximetry 10/01/20 10/01/20 10/01/20 13:01 13:06 13:11 Temperature Pulse Rate 101 H 115 H 109 H Respiratory Rate Blood Pressure O2 Sat by Pulse 99 99 99 Oximetry 10/01/20 10/01/20 10/01/20 13:16 13:21 13:26 Temperature Pulse Rate 105 H 107 H 100 H Respiratory Rate Blood Pressure O2 Sat by Pulse 98 98 97 Oximetry 10/01/20 10/01/20 10/01/20 13:31 13:36 13:41 Temperature Pulse Rate 103 H 99 H 106 H Respiratory Rate Blood Pressure O2 Sat by Pulse 97 97 99 Oximetry 10/01/20 10/01/20 10/01/20 13:46 13:51 13:57 Temperature Pulse Rate 109 H 115 H 98 H Respiratory Rate Blood Pressure O2 Sat by Pulse 99 99 99 Oximetry 10/01/20 10/01/20 10/01/20 14:02 14:07 14:12 Temperature Pulse Rate 109 H 98 H 101 H Respiratory Rate Blood Pressure O2 Sat by Pulse 99 99 98 Oximetry 10/01/20 10/01/20 10/01/20 14:17 14:22 14:27 Temperature Pulse Rate 102 H 103 H 101 H Respiratory Rate Blood Pressure O2 Sat by Pulse 98 98 100 Oximetry 10/01/20 10/01/20 10/01/20 14:32 14:37 15:10 Temperature Pulse Rate 99 H 100 H 106 H Respiratory Rate Blood Pressure O2 Sat by Pulse 99 97 99 Oximetry 10/01/20 10/01/20 10/01/20 15:15 15:20 15:25 Temperature Pulse Rate 101 H 111 H 101 H Respiratory Rate Blood Pressure O2 Sat by Pulse 99 98 97 Oximetry 10/01/20 10/01/20 10/01/20 15:30 15:35 15:40 Temperature Pulse Rate 98 H 112 H 100 H Respiratory Rate Blood Pressure O2 Sat by Pulse 96 97 97 Oximetry 10/01/20 10/01/20 10/01/20 15:45 15:50 15:55 Temperature Pulse Rate 101 H 102 H 109 H Respiratory Rate Blood Pressure O2 Sat by Pulse 96 96 98 Oximetry 10/01/20 10/01/20 10/01/20 16:00 16:05 16:17 Temperature Pulse Rate 114 H 104 H 103 H Respiratory Rate Blood Pressure O2 Sat by Pulse 99 96 99 Oximetry 10/01/20 10/01/20 10/01/20 16:22 16:27 16:32 Temperature Pulse Rate 105 H 93 H 98 H Respiratory Rate Blood Pressure O2 Sat by Pulse 98 97 97 Oximetry 10/01/20 10/01/20 10/01/20 16:37 16:41 16:42 Temperature Pulse Rate 94 H 93 H 89 Respiratory Rate Blood Pressure 114/68 O2 Sat by Pulse 97 99 Oximetry 10/01/20 10/01/20 10/01/20 16:47 16:52 16:56 Temperature 98.2 F Pulse Rate 92 H 104 H Respiratory 16 Rate Blood Pressure O2 Sat by Pulse 98 97 Oximetry 10/01/20 10/01/20 10/01/20 16:57 17:02 17:07 Temperature Pulse Rate 92 H 99 H 96 H Respiratory Rate Blood Pressure O2 Sat by Pulse 99 97 97 Oximetry 10/01/20 10/01/20 10/01/20 17:12 17:17 17:52 Temperature Pulse Rate 94 H 96 H 95 H Respiratory Rate Blood Pressure 139/84 O2 Sat by Pulse 97 96 Oximetry - Exam Lungs: Normal air movement Abdomen: Present: soft. Absent: tenderness Vulva: both: normal Uterus: Present: fundal height above umbilicus. Absent: tenderness FHR: category 2 Cervical Dilatation: 4 Cervical Effacement Percentage: 70 station: -1 - Labs Labs: Abnormal Labs 10/01/20 10/01/20 10/01/20 04:05 05:05 13:00 RBC 3.63 L Hct 29.4 L MCHC 36 H POC Glucose 142 H Membranes Rupture Positive A Laboratory Results - last 24 hr 10/01/20 10/01/20 10/01/20 04:05 05:05 05:05 WBC 8.3 RBC 3.63 L Hgb 10.5 Hct 29.4 L MCV 81 MCH 29 MCHC 36 H RDW 13.6 Plt Count 209 POC Glucose Membranes Rupture Positive A Syphilis IgG Antibody Blood Type B POSITIVE Antibody Screen Negative 10/01/20 10/01/20 10/01/20 08:33 13:00 18:18 WBC RBC Hgb Hct MCV MCH MCHC RDW Plt Count POC Glucose 142 H 74 Membranes Rupture Syphilis IgG Antibody Nonreactive Blood Type Antibody Screen
[2020-10-01] MEDS ORDERED: BICITRA ORAL LIQD 30ML ONE ×2 (18:48)
[2020-10-01] MEDS ORDERED: ceFAZolin/Water 2 GM/20 ML 2 GM/20 ML SYRINGE IV SCH (19:00)
--- NOTE | 2020-10-01 19:07 | Ultrasound Report ---
US OB BPP wo non-stress, US OB follow up INDICATION / CLINICAL INFORMATION: well being. COMPARISON: 08/20/2020 FINDINGS: breathing movement = 0 Gross body movement = 2 tone = 0 Qualitative amniotic fluid volume = 2 Total biophysical score = 4/8 Amniotic fluid index is 8.1 cm. Presentation is Cephalic. heart rate is 149 beats per minute. Biparietal diameter 8.1 cm, 32 weeks 4 days Head circumference 29.5 cm, 32 weeks 4 days Abdominal circumference 28.0 cm, 32 weeks 0 days Femur length 6.4 cm, 33 weeks 0 days. IMPRESSION: biophysical profile = 8 Heart rate is 149 and amniotic fluid index is within normal limits. lie is currently cephalic. Estimated birthweight at this time is 1975 g. Shortened cervix with funneling is incompletely evaluated on this exam. Signer Name: Jeffrey Pfeiffer MD Signed: 10/01/2020 7:02 PM Workstation Name: [id number]
--- NOTE | 2020-10-01 19:16 | Anesthesia Day of Surgery ---
Anesthesia Day of Surgery - Day of Surgery Patient Examined: Yes Patient H&P Reviewed: Yes Patient is NPO: Yes Beta Blockers: No Cardiac Clearance: No Pulmonary Clearance: No Scout's Test: N/A
[2020-10-01] MEDS ORDERED: BICITRA ORAL LIQD 30ML PO ONE (19:39)
[2020-10-01] MEDS ORDERED: FAMOTIDINE 20 MG/2 ML INJ IV ONE (19:39)
[2020-10-01] MEDS ORDERED: METOCLOPRAMIDE 10 MG/2 ML INJ IV ONE (19:39)
[2020-10-01] MEDS ORDERED: ERYTHROMYCIN LACTOBIONATE 250 MG in SODIUM CHLORIDE 0.9% 100 ML IV SCH (20:00)
[2020-10-01] MEDS ORDERED: SODIUM CHLORIDE 0.9% IRR 1,500 ML BOTTLE IR ONE (20:10)
[2020-10-01] MEDS ORDERED: WATER FOR IRRIG STERILE 1,500 ML BOTTLE IR ONE (20:11)
[2020-10-01] MEDS ORDERED: SODIUM CHLORIDE 0.9% 100 ML ONE (20:52)
[2020-10-01] MEDS ORDERED: dexAMETHasone 20 MG/5 ML VIAL ONE (20:52)
[2020-10-01] MEDS ORDERED: BUPIVACAINE/PF (0.5%) 5 MG/1 ML 30 ML VIAL INFILTRATI ONE (20:52)
[2020-10-01] MEDS ORDERED: KETOROLAC 30 MG/1 ML INJ ONE (20:52)
[2020-10-01] MEDS ORDERED: ONDANSETRON 4 MG/2 ML INJ ONE (20:52)
[2020-10-01] MEDS ORDERED: INSULIN NPH, HUMAN 100 UNIT/1 ML SUB-Q SCH (21:00)
--- NOTE | 2020-10-01 21:24 | Operative Report ---
Operative Report Operative Report: Date of operation: 10/01/2020 Pre-operative diagnosis: 1. 34 weeks gestational age 2. premature rupture of membranes 3. Abnormal testing 4. BMI 27.8 kg/m 5. Gestational diabetes controlled with insulin 6. Intracranial hypertension Post-operative diagnosis: 1. 34 weeks gestational age 2. premature rupture of membranes 3. Abnormal testing 4. BMI 27.8 kg/m 5. Gestational diabetes controlled with insulin 6. Intracranial hypertension Procedure name(s): Primary low transverse uterine incision Surgeon: Danelle Hood MD Food Operations Manager: Tiffany Patino Anesthesia: Spinal EBL: [] mL Urine output: 400 mL of clear urine out at the end of the procedure Fluids: Bowel mL Findings: Liveborn male infant weight 4 Lbs. 10 oz. Apgars of 7 and 9 at one and 5 minutes Indications: [] Procedure: Patient was taking to the operating room. Spinal anesthesia was placed. Patient was then prepped and draped in the usual sterile fashion Timeout was performed. Once an appropriate level of anesthesia was noted, a Pfannenstiel incision was made and extended the fascia which was incised and extended lateral direction. The overlying fascia was sharply dissected away from the underlying rectus muscles in the superior inferior direction. The midline was entered bluntly. Bladder blade was placed. Vesicouterine fold was incised with blunt dissection bladder flap was created. A transverse incision was made in the lower uterine segment and extended superolateral direction with finger fractionation. Scant clear fluid was noted. was delivered from the cephalic OP position, with spontaneous cry and excellent tone. Mouth and nose bulb suctioned. Cord was doubly clamped and cut infant was given to the resuscitation team present. Placenta was delivered. The uterus was exteriorized and cleaned of any further placental tissue and products of conception. Uterine incision was approximated using 0 Vicryl in a running interlocking stitch followed by further suture of 0 Vicryl in imbricating fashion. When hemostasis was noted the uterus was allowed back in the pelvic cavity. Pelvis was irrigated with warm normal saline. Once hemostasis was noted the rectus muscles were approximated using 0 Vicryl interrupted simple stitches 3. Once hemostasis was noted the fascia was approximated using 0 Vicryl simple running stitch. The incision was irrigated with warm saline, once hemostasis as noted, the subcuticular adipose tissue was reapproximated using 3-0 Vicryl in a simple running fashion. Skin was approximated using 4-0 Vicryl on a Miko needle in a subcuticular manner. Counts were correct x3. Patient tolerated the procedure well, she was taken to recovery room in stable condition.
--- NOTE | 2020-10-01 22:03 | Anesthesia Consultation ---
Anesthesia Consult and Med Hx Date of service: 10/01/20 - Airway Anesthetic Teeth Evaluation: Poor ROM Head & Neck: Adequate Mental/Hyoid Distance: Adequate Mallampati Class: Class II Intubation Access Assessment: Probably Good - Pulmonary Exam CTA: Yes - Cardiac Exam Cardiac Exam: RRR - Pre-Operative Health Status ASA Pre-Surgery Classification: ASA3, Emergency Proposed Anesthetic Plan: Spinal - Pulmonary Hx Smoking: Yes Hx Asthma: No Hx Respiratory Symptoms: No SOB: No COPD: No Home Oxygen Therapy: No Hx Pneumonia: No - Cardiovascular System Hx Hypertension: Yes Hx Coronary Artery Disease: No Hx Heart Attack/AMI: No Hx Angina: No Hx Percutaneous Transluminal Coronary Angioplasty (PTCA): No Hx Cardia Arrhythmia: No Hx Pacemaker: No Hx Internal Defibrillator: No Hx Valvular Heart Disease: No Hx Heart Murmur: No Hx Peripheral Vascular Disease: No - Central Nervous System Hx Neuromuscular Disorder: Yes (pseudotumor since 2019, 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 ) Hx Seizures: No CVA: No Hx Back Pain: No Hx Psychiatric Problems: Yes (Severe ANXIETY & DEPRESSION) - Gastrointestinal Hx Gastroesophageal Reflux Disease: Yes - Endocrine Hx Renal Disease: No Hx End Stage Renal Disease: No Hx Cirrhosis: No Hx Liver Disease: No Hx Insulin Dependent Diabetes: Yes Hx Non-Insulin Dependent Diabetes: No Hx Thyroid Disease: No Hx Hypothyroidism: No Hx Hyperthyroidism: No - Hematic Hx Anemia: No Hx Sickle Cell Disease: Yes (TRAIT) - Other Systems Hx Alcohol Use: Yes (OCCASIONAL) Hx Substance Use: Yes (marijuana ) Hx Cancer: No Hx Obesity: No - Additional Comments Anesthesia Medical History Comments: Risk associated with fernanda anesthesia were discussed with patient and family(boyfriend). Patient voices understanding and wishes to continue with SAB for csection.
[2020-10-01] MEDS ORDERED: HYDROmorphone 1 MG/1 ML INJ IV PRN (22:13)
--- NOTE | 2020-10-01 22:13 | Progress Note ---
Spinal Anesthesia Block - Spinal Anesthesia Block Start Time: 20:05 Stop Time: 20:06 Performed by:: SHAKIRA KASPER Procedure: Patient IDed, H&P reviewed, all questions and concerns were answered, and consent was signed. Timeout was performed at bedside. Patient in sitting position. Sterile prep and drape was performed. [3] ml of 1% lidocaine skin wheal at L[3]- L [4]. Needle introducer advanced. 25 gauge spinal needle advanced x 1 attempt. Clear, free flowing CSF. negative blood, negative paresthesia. Spinal dose given. All needles removed. Patient tolerated procedure.
--- NOTE | 2020-10-01 22:18 | Progress Note ---
Regional Anesthesia Block - Regional Anesthesia Block Start Time: 21:35 Stop Time: 21:22 Performed By:: SHAKIRA KASPER Procedure: Patient consented for TAP block for post surgical pain management. Patient identified, monitors placed, and time out performed. TAP identified bilaterally via ultrasound. Skin prepped bilaterally with [chlorhexidine] and [22g stimuplex] needle advanced to the TAP. [Marcaine 0.22% 35ml] injected under ultrasound guidance on the [left] side. [Marcaine 0.22% 35ml] injected under ultrasound guidance on the [right] side. Negative aspiration every 5mL, No change in heart rate or rhythm. Patient tolerated the procedure well. No apparent complications seen.
[2020-10-02] MEDS ORDERED: MORPHINE 4 MG/1 ML INJ ONE (00:58)
[2020-10-02] MEDS ORDERED: MORPHINE 4 MG/1 ML INJ IV PRN (01:00)
[2020-10-02] MEDS ORDERED: KETOROLAC 30 MG/1 ML INJ IV PRN ×2 (02:54→21:10)
[2020-10-02] MEDS ORDERED: HYDROcodone/ACETAMINOPHEN 5-325 MG TAB PO PRN (03:41)
[2020-10-02] MEDS ORDERED: NALOXONE 0.4 MG/1 ML INJ IV PRN (03:41)
[2020-10-02] MEDS ORDERED: WITCH HAZEL/ GLYCERIN PAD TP PRN (03:41)
[2020-10-02] MEDS ORDERED: LANOLIN/ZINC/DIMETHICONE (LANSINOH) 7 GM TP PRN (03:41)
[2020-10-02] MEDS ORDERED: IBUPROFEN 800 MG TAB PO PRN (03:41)
[2020-10-02] MEDS ORDERED: MORPHINE 2 MG/1 ML INJ IV PRN (03:41)
[2020-10-02] MEDS ORDERED: OXYTOCIN DRIP 30 UNITS/500 ML BAG IV SCH (03:41)
[2020-10-02] MEDS ORDERED: ACETAMINOPHEN 325 MG TAB PO PRN (03:41)
[2020-10-02] MEDS ORDERED: D5W/LACTATED RINGERS 1,000 ML IV SCH (03:41)
[2020-10-02] MEDS ORDERED: oxyCODONE /ACETAMINOPHEN 5-325MG TAB ONE (06:52)
[2020-10-02] MEDS: oxyCODONE /ACETAMINOPHEN 5-325MG TAB PO PRN ×3 (06:53→20:00)
[2020-10-02] MEDS: ceFAZolin/NS 1 GM/50 ML 1 GM/50 ML BAG IV SCH ×3 (07:35→22:00)
[2020-10-02] MEDS ORDERED: INSULIN NPH, HUMAN 100 UNIT/1 ML SUB-Q SCH (08:00)
[2020-10-02] MEDS ORDERED: ACETAMINOPHEN 500 MG TAB PO PRN (08:00)
--- NOTE | 2020-10-02 08:51 | Progress Note ---
Assessment and Plan A: 30 y.o. s/p primary , PO approximately 11 hours. P: Continue with care. Encourage ambulation. Advance diet as tolerated. Subjective - Subjective Date of service: 10/02/20 (Doing well. ) Principal diagnosis: S/p prim d/t intercrainal HTN,PTL, approximately 11 hours post op Patient reports: appetite normal, pain well controlled, ambulating normally, other (Cummings cathter removed this AM. ) : doing well, in NICU Objective - Vital Signs Latest vital signs: Vital Signs Temp Pulse Resp BP BP Pulse Ox 10/02/20 06:53 18 10/02/20 04:09 97.8 F 79 20 121/88 97 10/02/20 03:52 18 10/02/20 01:00 18 10/02/20 00:10 98 F 97 H 18 121/78 99 10/01/20 21:55 62 17 107/63 100 10/01/20 21:40 76 18 107/53 98 10/01/20 21:25 85 14 103/58 98 10/01/20 21:20 73 17 103/54 97 10/01/20 21:15 74 21 109/47 98 10/01/20 21:09 98.1 F 81 13 104/47 98 10/01/20 19:21 105 H 99 10/01/20 19:16 101 H 100 10/01/20 19:11 94 H 98 10/01/20 19:06 95 H 100 10/01/20 19:01 101 H 99 10/01/20 18:56 100 H 96 10/01/20 18:23 95 H 121/79 10/01/20 17:52 95 H 139/84 10/01/20 17:17 96 H 96 10/01/20 17:12 94 H 97 10/01/20 17:07 96 H 97 10/01/20 17:02 99 H 97 10/01/20 16:57 92 H 99 10/01/20 16:56 98.2 F 16 10/01/20 16:52 104 H 97 10/01/20 16:47 92 H 98 10/01/20 16:42 89 99 10/01/20 16:41 93 H 114/68 10/01/20 16:37 94 H 97 10/01/20 16:32 98 H 97 10/01/20 16:27 93 H 97 10/01/20 16:22 105 H 98 10/01/20 16:17 103 H 99 10/01/20 16:05 104 H 96 10/01/20 16:00 114 H 99 10/01/20 15:55 109 H 98 10/01/20 15:50 102 H 96 10/01/20 15:45 101 H 96 10/01/20 15:40 100 H 97 10/01/20 15:35 112 H 97 10/01/20 15:30 98 H 96 10/01/20 15:25 101 H 97 10/01/20 15:20 111 H 98 10/01/20 15:15 101 H 99 10/01/20 15:10 106 H 99 10/01/20 14:37 100 H 97 10/01/20 14:32 99 H 99 10/01/20 14:27 101 H 100 10/01/20 14:22 103 H 98 10/01/20 14:17 102 H 98 10/01/20 14:12 101 H 98 10/01/20 14:07 98 H 99 10/01/20 14:02 109 H 99 10/01/20 13:57 98 H 99 10/01/20 13:51 115 H 99 10/01/20 13:46 109 H 99 10/01/20 13:41 106 H 99 10/01/20 13:36 99 H 97 10/01/20 13:31 103 H 97 10/01/20 13:26 100 H 97 10/01/20 13:21 107 H 98 10/01/20 13:16 105 H 98 10/01/20 13:11 109 H 99 10/01/20 13:06 115 H 99 10/01/20 13:01 101 H 99 10/01/20 12:56 109 H 99 10/01/20 12:51 93 H 99 10/01/20 12:46 98 H 99 10/01/20 12:41 95 H 99 10/01/20 12:36 92 H 99 10/01/20 12:31 110 H 99 10/01/20 12:26 93 H 98 10/01/20 12:21 86 99 10/01/20 12:16 104 H 100 10/01/20 12:02 102 H 98 10/01/20 11:57 97 H 97 10/01/20 11:55 92 H 93 10/01/20 11:52 97 H 95 10/01/20 11:49 90 92 10/01/20 11:47 95 H 95 10/01/20 11:44 101 H 94 10/01/20 11:42 101 H 96 10/01/20 11:37 97 H 94 10/01/20 11:35 101 H 94 10/01/20 11:32 95 H 95 10/01/20 11:29 105 H 94 10/01/20 11:27 100 H 96 10/01/20 11:22 92 H 97 10/01/20 11:17 108 H 96 10/01/20 11:12 108 H 93 10/01/20 11:07 96 H 94 10/01/20 11:02 95 H 96 10/01/20 10:58 94 H 93 10/01/20 10:57 95 H 95 10/01/20 10:52 96 H 96 10/01/20 10:47 99 H 96 10/01/20 10:42 96 H 97 10/01/20 10:37 95 H 99 10/01/20 10:35 104 H 93 10/01/20 10:32 96 H 93 10/01/20 10:27 96 H 94 10/01/20 10:22 98 H 94 10/01/20 10:20 96 H 94 10/01/20 10:17 89 94 10/01/20 10:15 99 H 93 10/01/20 10:12 111 H 97 10/01/20 10:10 112 H 92 10/01/20 10:07 98 H 92 10/01/20 10:02 95 H 93 10/01/20 09:57 97 H 91 10/01/20 09:52 91 H 93 10/01/20 09:47 97 H 94 10/01/20 09:46 92 H 94 10/01/20 09:42 96 H 94 10/01/20 09:41 94 H 94 10/01/20 09:37 96 H 94 10/01/20 09:35 98 H 93 10/01/20 09:32 94 H 94 10/01/20 09:30 93 H 93 10/01/20 09:27 101 H 97 06/22/21 09:23 94 H 94 10/01/20 09:22 107 H 97 10/01/20 09:18 100 H 93 10/01/20 09:17 95 H 95 10/01/20 09:12 97 H 95 10/01/20 09:10 101 H 94 10/01/20 09:07 94 H 97 10/01/20 09:02 101 H 95 10/01/20 09:00 102 H 94 10/01/20 08:57 104 H 97 10/01/20 08:52 104 H 98 Intake and Output 10/01/20 10/02/20 10/02/20 22:59 06:59 14:59 Intake Total 1500 340 Output Total 400 1750 Balance 1100 -1410 Intake: IV 1500 Oral 340 Output: Urine 400 1750 Indwelling Catheter 700 Uretheral (Cummings) 800 Other: Total, Intake Amount 240 Total, Output Amount 200 Estimated Blood Loss 598 - Exam Breasts: Present: deferred Cardiovascular: Present: Regular rate Lungs: Present: Normal air movement Abdomen: Present: normal appearance, soft Vulva: both: normal Uterus: Present: normal, firm Extremities: Present: normal Incision: Present: normal, dry, intact - Labs Labs: Abnormal lab results 10/01/20 Range/Units 13:00 POC Glucose 142 H (70-105) mg/dL
[2020-10-02] MEDS: PRENATAL VIT27-FE FUMARATE-FOLIC ACID VIT TAB PO SCH (09:55)
[2020-10-02] MEDS: KETOROLAC 30 MG/1 ML INJ IV SCH ×4 (09:56→21:12)
[2020-10-02 10:29] LABS: Hemoglobin 10.9 gm/dl (10.1-14.3)
--- NOTE | 2020-10-02 15:03 | Post Anesthesia Evaluation ---
- Post Anesthesia Evaluation Patient Participated: Yes Airway Patent: Yes Stable Respiratory Function: Yes Nausea/Vomiting: No Temp > 96.8F: Yes Pain Manageable: Yes Adequeate Hydration: Yes Anesthesia Complications: No Block Receding Appropriately: Yes Patient on Ventilator: No
[2020-10-02] MEDS ORDERED: IBUPROFEN 600 MG TAB PO PRN (21:10)
[2020-10-02] MEDS ORDERED: oxyCODONE /ACETAMINOPHEN 5-325MG TAB PO PRN (21:10)
[2020-10-02] MEDS ORDERED: TETANUS,DIPH,PERTUSS(ACELL) VACCINE 0.5 ML SYRINGE IM ONE (21:10)
[2020-10-02] MEDS: SIMETHICONE 80 MG CHEW TAB PO PRN (21:13)
[2020-10-03] MEDS: MORPHINE 4 MG/1 ML INJ IV PRN ×2 (01:00→15:06)
[2020-10-03] MEDS: oxyCODONE /ACETAMINOPHEN 5-325MG TAB PO PRN ×3 (05:08→17:50)
--- NOTE | 2020-10-03 08:16 | Progress Note ---
Assessment and Plan patient in bathroom doing AM care with s/o, incision D&I, lochia scant, fundus firm, H&H 10.9/33.0, VSSAF. - Patient Problems (1) delivery delivered Current Visit: Yes Status: Acute Plan to address problem: continue postop pathway increase activity and diet as tolerated (2) Hemorrhoids Current Visit: Yes Status: Acute Qualifiers: Hemorrhoid type: first degree Qualified Code(s): K64.0 - First degree hemorrhoids Plan to address problem: prep-h ordered Subjective - Subjective Date of service: 10/03/20 Principal diagnosis: postop day #2 s/p c/s Patient reports: appetite normal, voiding normally, pain well controlled, ambulating normally, no dizzy ambulation, no flatus, no bowel movement, no nauseated [place]: in NICU Objective - Vital Signs Latest vital signs: Vital Signs Temp Pulse Resp BP 10/03/20 06:08 18 10/03/20 05:08 18 10/03/20 01:30 18 10/03/20 01:00 20 10/03/20 00:00 98.7 F 74 16 115/79 10/02/20 21:42 18 10/02/20 21:12 18 10/02/20 21:00 18 10/02/20 20:00 20 10/02/20 18:45 18 10/02/20 08:45 97.6 F 79 18 114/74 Intake and Output 10/02/20 10/03/20 10/03/20 23:59 07:59 15:59 Intake Total 300 480 Output Total 950 Balance -650 480 Intake: Intake, Free Water 300 480 Output: Urine 950 Void 950 Other: Total, Output Amount 600 # Voids Void 1 1 - Exam Breasts: Present: normal, (pumping) Cardiovascular: Present: Regular rate Lungs: Present: Clear to auscultation, Normal air movement Abdomen: Present: normal appearance, soft, normal bowel sounds. Absent: distention, tenderness Vulva: both: normal Uterus: Present: normal, firm, fundal height below umbilicus Extremities: Present: normal Deep Tendon Reflex Grade: Normal +2 Incision: Present: normal, dry, intact - Labs Labs: Abnormal lab results 10/02/20 10/02/20 Range/Units 06:13 08:25 POC Glucose 141 H (70-105) mg/dL Hemoglobin A1c 6.3 H (4-6) %
[2020-10-03] MEDS ORDERED: PE/MO/PET,WH 10 APPLIC/28 GM TUBE PR PRN (09:00)
[2020-10-03] MEDS: SIMETHICONE 80 MG CHEW TAB PO PRN (10:48)
[2020-10-03] MEDS: PRENATAL VIT27-FE FUMARATE-FOLIC ACID VIT TAB PO SCH (10:48)
[2020-10-04] MEDS: oxyCODONE /ACETAMINOPHEN 5-325MG TAB PO PRN ×2 (00:04→05:41)
--- NOTE | 2020-10-04 08:14 | Discharge Summary ---
Providers - Providers Date of Admission: 10/01/20 04:51 Date of discharge: 10/04/20 Attending physician: BERT BERRY 10/01/20 16:27 Consult to Dietitian/Nutrition [CONS] Routine Physician Instructions: Reason For Exam: Reason for Consult: GDM 10/02/20 03:41 Consult to Spa Consultant [CONS] Routine Reason For Exam: Primary care physician: BERT BERRY Hospitalization Reason for admission: IUP - , rupture of membranes Delivery: Procedure: section, primary low transverse Episiotomy: none Laceration: none Incision: normal, dry, intact Other procedures: none complications: none Discharge diagnosis: delivery [place] baby: male Condition at discharge: Good Disposition: DC-01 TO HOME OR SELFCARE Plan - Provider Discharge Summary Activity: routine, no sex for 6 weeks, no heavy lifting 4 weeks, no strenuous exercise Diet: routine Instructions: routine Additional instructions: [] Smoking cessation referral if applicable(refer to patient education folder for contact #) [] Refer to [facility] Booklet Call your doctor immediately for: * Fever > 100.5 * Heavy vaginal bleeding ( >1 pad per hour) * Severe persistent headache * Shortness of breath * Reddened, hot, painful area to leg or breast * Drainage or odor from incision. * Keep incision clean and dry at all times and follow doctor's instructions regarding bathing/showering Congratulations! Please call [phone] and make an appointment in 1 week to have your incision checked in the office. Please also call to make your circumcision appointment after baby is discharged from the hospital. Thank you! - Follow up plan Follow up: BERT BERRY MD [Primary Care Provider] - 7 Days
[2020-10-04] MEDS ORDERED: DOCUSATE SODIUM 100 MG CAP PO NR (08:36)
[2020-10-04] MEDS: PRENATAL VIT27-FE FUMARATE-FOLIC ACID VIT TAB PO SCH (10:33)
[2020-10-04 12:27] VITALS: BP 115/74
== END 2020-10-04 11:50 | disposition home or self-care (01) | DRG 765 ==
LOC: TRG 03:05 → APU 03:15 → LD 04:51 → TRG 04:51 → OB 10-02 02:54
PROVIDERS: ADMIT Obstetrics & Gynecology; ATTEND Obstetrics & Gynecology
PROC: 10D00Z1 Extraction of Products of Conception, Low, Open Approach (ICD-10-PCS; principal; 2020-10-01)
PROC: 3E0234Z Introduction of Serum, Toxoid and Vaccine into Muscle, Percutaneous Approach (ICD-10-PCS; 2020-10-02)
DX: O24.419 Gestational diabetes mellitus in pregnancy, unspecified control (principal); O87.2 Hemorrhoids in the puerperium; O42.113 Preterm premature rupture of membranes, onset of labor more than 24 hours following rupture, third trimester; O75.0 Maternal distress during labor and delivery; Z3A.34 34 weeks gestation of pregnancy; Z37.0 Single live birth; Z90.49 Acquired absence of other specified parts of digestive tract; Z23 Encounter for immunization; Z20.822 Contact with and (suspected) exposure to COVID-19
CPT/HCPCS: 36415; 59025; 76816; 76819; 82962; 83036; 84112; 85014; 85018; 85027; 86592; 86850; 86900; 86901; 88307; 96360; G0378; J0290; J0690; J1100; J1885; J2270; J2405; J2765; J3490; J7120; U0003